=== PATIENT | female | born 1955 | race Caucasian/White ===

== ENCOUNTER → 2016-10-01 | Outpatient (CLI) | payer OTHER ==
[~2016-10-01] MED LIST: ASPI81TA28 PO; ATOR10TA88 PO; BCTCR/30 EXT; BIOTCAP2 PO; CALC-354 PO; CALC600T9 PO; CHOL100027 PO; CHOL20007 PO; CYAN10004 PO; CYAN10005 PO; DULA0.5I SC; FAMO40TA6 PO; GLIM2TAB2 PO; GLIM4TAB2 PO; INSUINJ4 SQ; LOSA100T2 PO; LOSARTAN/HCTZ PO; METF500T5 PO; METO25TA56 PO; MULT-506 PO; MULTTAB PO; POTA99TA PO; POTASSIUM OTC PO; PYRI50TA77 PO; ROSI1TAB PO; SIMV-151 PO
[2016-10-01 09:51] LABS: ALT/SGPT 41 U/L (12-78); BLOOD UREA NITROGEN 17 mg/dl (7-18); BUN/CREATININE RATIO 15.3 (10-20); CALCIUM 8.8 mg/dl (8.5-10.1); CARBON DIOXIDE 25 mmol/L (21-32); CHLORIDE 106 mmol/L (98-107); CHOLESTEROL 147 mg/dl (0-200); GLUCOSE 131 mg/dl (70-99); POTASSIUM 3.9 mmol/L (3.5-5.1); SODIUM 140 mmol/L (136-145); TRIGLYCERIDES 87 mg/dl (0-150); URIC ACID 5.3 mg/dl (2.6-7.2); VERY LOW DENSITY LIPOPROT CALC 17 mg/dl
[2016-10-01 09:57] LABS: ESTIMATED AVERAGE GLUCOSE 194 mg/dl; HA1C FLAG Normal (Normal)
[2016-10-01 09:59] LABS: ALB/GLOB RATIO 0.9 (0.9-2); ALKALINE PHOSPHATASE 54 U/L (45-117); AST/SGOT 35 U/L (15-37); CHOLESTEROL/HDL RATIO 2.8; HDL CHOLESTEROL 53 mg/dl; LDL CHOLESTEROL CALCULATED 77 mg/dl; PHOSPHORUS 2.9 mg/dl (2.5-4.9)
== END | disposition home or self-care (01) ==
LOC: C.LAB 07:10
PROVIDERS: ATTEND Family Medicine
DX: E11.9 Type 2 diabetes mellitus without complications (principal)

== ENCOUNTER → 2016-10-28 | Outpatient (CLI) | payer OTHER ==
--- NOTE | 2016-10-28 17:05 | ECHOCARDIOGRAM REPORT ---
*NOTICE TO RECEIVING REPUBLICAN AGENCY This information is strictly Confidential and protected under [place] law. [place] law prohibits you from making any further disclosure of this information unless further disclosure is expressly permitted by the written consent of the person to whom it pertains or is authorized by law. A general authorization for the release of medical or other information is not sufficient for this purpose. Hospital accepts no responsibility if the information is made available to any other person, INCLUDING THE PATIENT. Interpretation Summary * Name: MUSHTAQ HOGAN Study Date: 10/28/2016 12:36 PM * Patient Location: [facility] HR: 74 * : 1955 (M/d/yyyy) Gender: Female Height: 66 in * Age: 61 yrs Ethnicity: CA Weight: 176 lb * Ordering Physician: EMY MACHUCA MD * Performed By: Rochelle Mcgraw RCS * * Reason For Study: AORTIC STENOSIS * BSA: 1.9 m2 * -- Conclusions -- * Left ventricular systolic function is normal. * Mild valvular aortic stenosis. * Cannot exlude mitral vegetation, however, there is no change in the valve appearance from the prior echocardiogram * There is mild mitral regurgitation. * There is moderate mitral annular calcification. * Diastolic dysfunction, Grade II (pseudonormalization pattern). * Compared directly to an echocardiogram from 12/2015, there is no change Procedure Details * A complete two-dimensional transthoracic echocardiogram was performed (2D, M-mode, Doppler and color flow Doppler). Left Ventricle * There is normal left ventricular wall thickness. * Ejection Fraction = 55-60%. * Left ventricular systolic function is normal. * The left ventricular wall motion is normal. Right Ventricle * The right ventricle is grossly normal size. * The right ventricular systolic function is normal. Atria * The left atrial size is normal. Mitral Valve * Calcified mitral apparatus. * There is moderate mitral annular calcification. * Cannot exlude mitral vegetation, however, there is no change in the valve appearance from the prior echocardiogram * There is mild mitral regurgitation. Tricuspid Valve * The tricuspid valve is not well visualized, but is grossly normal. * There is mild tricuspid regurgitation. Aortic Valve * Mild valvular aortic stenosis. Pericardium/Pleural * There is no pericardial effusion. Left Ventricular Diastolic Function * Diastolic dysfunction, Grade II (pseudonormalization pattern). MMode 2D Measurements and Calculations IVSd 1.4 cm IVSs 1.6 cm LVIDd 4.0 cm LVIDs 3.1 cm LVPWd 1.1 cm LVPWs 1.6 cm IVS/LVPW 1.2 FS 22.7 % EDV(Teich) 71.9 ml ESV(Teich) 38.7 ml EF(Teich) 46.1 % EDV(cubed) 66.2 ml ESV(cubed) 30.6 ml EF(cubed) 53.8 % % IVS thick 15.0 % % LVPW thick 42.9 % LV mass(C)d 175.0 grams LV mass(C)dI 92.4 grams/m\S\2 LV mass(C)s 180.0 grams LV mass(C)sI 95.0 grams/m\S\2 SV(Teich) 33.2 ml SI(Teich) 17.5 ml/m\S\2 SV(cubed) 35.6 ml SI(cubed) 18.8 ml/m\S\2 Ao root diam 3.5 cm Ao root area 9.4 cm\S\2 LA dimension 3.9 cm LA/Ao 1.1 LVOT diam 2.0 cm LVOT area 3.3 cm\S\2 LVAd ap4 26.9 cm\S\2 LVLd ap4 7.8 cm EDV(MOD-sp4) 79.5 ml EDV(sp4-el) 79.1 ml LVAs ap4 18.0 cm\S\2 LVLs ap4 6.5 cm ESV(MOD-sp4) 41.5 ml ESV(sp4-el) 42.3 ml EF(MOD-sp4) 47.7 % EF(sp4-el) 46.5 % LVAd ap2 32.9 cm\S\2 LVLd ap2 7.4 cm EDV(MOD-sp2) 117.4 ml EDV(sp2-el) 124.4 ml LVAs ap2 22.6 cm\S\2 LVLs ap2 6.9 cm ESV(MOD-sp2) 61.7 ml ESV(sp2-el) 62.8 ml EF(MOD-sp2) 47.4 % EF(sp2-el) 49.5 % LVLd %diff -5.15 % EDV(MOD-bp) 98.3 ml LVLs %diff 5.5 % ESV(MOD-bp) 51.1 ml EF(MOD-bp) 48.1 % SV(MOD-sp4) 38.0 ml SI(MOD-sp4) 20.0 ml/m\S\2 SV(MOD-sp2) 55.6 ml SI(MOD-sp2) 29.4 ml/m\S\2 SV(MOD-bp) 47.3 ml SI(MOD-bp) 24.9 ml/m\S\2 SV(sp4-el) 36.7 ml SI(sp4-el) 19.4 ml/m\S\2 SV(sp2-el) 61.6 ml SI(sp2-el) 32.5 ml/m\S\2 Doppler Measurements and Calculations MV E max chandu 125.6 cm/sec MV A max chandu 102.8 cm/sec MV E/A 1.2 MV P1/2t max chandu 142.5 cm/sec MV P1/2t 85.0 msec MVA(P1/2t) 2.6 cm\S\2 MV dec slope 491.1 cm/sec\S\2 MV dec time 0.20 sec Ao V2 max 206.3 cm/sec Ao max PG 17.0 mmHg Ao max PG (full) 14.0 mmHg Ao V2 mean 163.0 cm/sec Ao mean PG 11.4 mmHg Ao V2 VTI 57.4 cm DIANE(V,A) 1.4 cm\S\2 DIANE(V,D) 1.4 cm\S\2 LV V1 max PG 3.0 mmHg LV V1 max 86.8 cm/sec SV(Ao) 538.6 ml SI(Ao) 284.3 ml/m\S\2 PA V2 max 109.9 cm/sec PA max PG 4.8 mmHg TR max chandu 262.0 cm/sec
== END | disposition home or self-care (01) ==
LOC: C.CPL 12:33
PROVIDERS: ATTEND Family Medicine
DX: I35.0 Nonrheumatic aortic (valve) stenosis (principal)

== ENCOUNTER → 2017-01-18 | Outpatient (CLI) | payer OTHER ==
[~2017-01-18] MED LIST changes: +ATOR10TA82 PO; -ATOR10TA88 PO
[2017-01-18 09:32] LABS: MEAN CORPUSCULAR HGB CONC 30.3 g/dl (32-36)
[2017-01-18 09:49] LABS: ALT/SGPT 44 U/L (12-78); BLOOD UREA NITROGEN 16 mg/dl (7-18); BUN/CREATININE RATIO 16.1 (10-20); CARBON DIOXIDE 26 mmol/L (21-32); CHLORIDE 106 mmol/L (98-107); CHOLESTEROL 163 mg/dl (0-200); GLUCOSE 90 mg/dl (70-99); PHOSPHORUS 3.3 mg/dl (2.5-4.9); POTASSIUM 3.8 mmol/L (3.5-5.1); SODIUM 140 mmol/L (136-145); TRIGLYCERIDES 79 mg/dl (0-150); URIC ACID 5.7 mg/dl (2.6-7.2); VERY LOW DENSITY LIPOPROT CALC 16 mg/dl
[2017-01-18 09:56] LABS: ALB/GLOB RATIO 0.9 (0.9-2); ALKALINE PHOSPHATASE 50 U/L (45-117); AST/SGOT 40 U/L (15-37); HDL CHOLESTEROL 54 mg/dl; LDL CHOLESTEROL CALCULATED 93 mg/dl; THYROID STIMULATING HORMONE 0.128 uIu/ml (0.300-4.500)
[2017-01-18 10:01] LABS: CALCIUM 9.6 mg/dl (8.5-10.1)
[2017-01-18 10:03] LABS: MEAN CELL VOLUME 80.8 fL (80-100); MEAN CORPUSCULAR HEMOGLOBIN 24.5 pg (25-34); MEAN PLATELET VOLUME 12.2 fL (7.4-10.4); PLATELET COUNT 126 K/uL (130-400); RED BLOOD COUNT 4.21 M/uL (4.2-5.4); WHITE BLOOD COUNT 4.69 K/uL (4.8-10.8)
[2017-01-18 10:04] LABS: BASO % 0.2 %; BASO ABS # 0.01 K/uL (0-0.2); COMPLETE YES; EOS % 5.1 %; IG% 0.2 %; LYMPH ABS # 1.36 K/uL (1.2-3.4); MONO % 7.5 %; PLT ESTIMATE DECREASED
[2017-01-18 10:21] LABS: ESTIMATED AVERAGE GLUCOSE 183 mg/dl; HA1C FLAG Normal (Normal)
[2017-01-19 09:50] LABS: C-REACTIVE PROT HIGHSEN 2.1 MG/L
== END | disposition home or self-care (01) ==
LOC: C.LAB 06:56
PROVIDERS: ATTEND Family Medicine
DX: R73.09 Other abnormal glucose (principal); E55.9 Vitamin D deficiency, unspecified; D51.9 Vitamin B12 deficiency anemia, unspecified

== ENCOUNTER → 2017-02-02 | Day surgery (SDC) | payer OTHER ==
[2017-01-19 13:22] VITALS: Ht 167.6 cm; Wt 75.5 kg
[~2017-02-02] VITALS: Ht 167.6 cm; Wt 75.5 kg
[~2017-02-02] MED LIST changes: -CALC-354 PO; -CHOL100027 PO; -CYAN10004 PO; -GLIM2TAB2 PO; +LIDOCAINE HCL 2% 2 ML VIAL (20MG/ML) ONE; -LOSARTAN/HCTZ PO; -MULTTAB PO; -POTASSIUM OTC PO; +PROPOFOL IV EMULSION 10 MG/ML 20 ML VIAL IV ONE; -PYRI50TA77 PO; -ROSI1TAB PO; -SIMV-151 PO; +SODIUM CHLORIDE 0.9% 500ML 500 ML IV ONE
--- NOTE | 2017-02-02 09:33 | Endo History and Physical ---
History & Physical Date of Service: Feb 02, 2017. Chief Complaint: Screening Referring Physician: Jarrod Borges History of Present Illness 61 yo CF who presents for screening colonoscopy. Past Surgical History Hx Cardiac Surgery: No Hx Internal Defibrillator: No Hx Pacemaker: No Hx Abdominal Surgery: Yes ( X2, STOMACH NODULES REMOVAL, PARTIAL HYSTER) Hx of Implantable Prosthesis: No Hx Post-Op Nausea and Vomiting: No Hx Cancer Surgery: Yes (MELANOMA REMOVAL AND SCAR REVISION) Hx Thoracic Surgery: No Hx Orthopedic: Yes (LT FOOT NEUROMA REMOVAL X3) Hx Urinary Tract Surgery: No Family History Polyp Social History Smoking Status: Former Smoker Hx Substance Use: No Hx Alcohol Use: No Allergies Coded Allergies: Bacitracin (Verified Allergy, Unknown, REDNESS/RASH, 01/19/17) Neomycin (Verified Allergy, Unknown, REDNESS AND RASH, 01/19/17) Current Medications Reported Home Medications Medications Dose Route/Sig Max Daily Dose Days Date Category Dose Instructions Multivitamin (Multivitamins) Tab 1 Tab PO QAM 01/19/17 Reported Calcium + D (Calcium Carbonate-Vitamin D) 1 Tab Tab 1 Tab PO BID 01/19/17 Reported Vitamin B-12 (Cyanocobalamin) 1,000 Mcg Tab 1,000 Mcg PO QAM 01/19/17 Reported Vitamin D3 (Cholecalciferol) 2,000 Unit Tab 1 Tab PO QAM 01/19/17 Reported Potassium 99 Mg Tab 1 Tab PO QAM 01/19/17 Reported Bactroban 2% (Mupirocin) 30 Gm Cr 1 Appln EXT UD 01/19/17 Reported Lopressor (Metoprolol Tartrate) 25 Mg Tab 25 Mg PO BID 01/19/17 Reported Lipitor (Atorvastatin Calcium) 10 Mg Tab 10 Mg PO 2XWK 01/19/17 Reported WEDNESDAY, WEDNESDAY Hyzaar (Losartan Potassium & Hydrochlo) 1 Tab Tab 0.5 Tab PO QAM 01/19/17 Reported 100/12.5MG TAB Trulicity (Dulaglutide) 1.5 Mg/0.5 Ml Inj 0.75 Mg SC WK 01/19/17 Reported WEDNESDAY Glimepiride 4 Mg Tab 1 Tab PO DAILY 01/19/17 Reported Biotin 5000 (Biotin) 5 Mg Cap 1 Tab PO QAM 05/16/15 Reported Aspirin Ec (Aspirin) 81 Mg Tab 81 Mg PO QAM 05/16/15 Reported Pepcid (Famotidine) 40 Mg Tab 40 Mg PO QPM 05/16/15 Reported Glucophage Er (Metformin HCl) 500 Mg Tab 1,000 Units PO BID 05/16/15 Reported Lantus Solostar Pen (Insulin Glargine) 100 Unit/ Inj 38 Units SQ AMPM 05/16/15 Reported Vital Signs Weight (Kilograms): 75.45 Height (Feet): 5 Height (Inches): 6 Date Time Temp Pulse Resp B/P (MAP) Pulse Ox O2 Delivery O2 Flow Rate FiO2 02/02/17 09:16 36.7 79 18 130/64 98 Room Air Physical Exam General Appearance: WD/WN, no apparent distress Respiratory/Chest: Auscultation: breath sounds normal Cardiovascular: Heart Auscultation: RRR Abdomen: Bowel Sounds: normal Inspection & Palpation: soft, non-distended, no tenderness, guarding & rebound Assessment and Plan Assessment: 61 yo CF who presents for screening colonoscopy. Plan: Proceed with colonoscopy.
--- NOTE | 2017-02-02 10:08 | GI REPORT ---
Procedure Date: 02/02/2017 9:25 AM Procedure: Colonoscopy Indications: Screening for colorectal malignant neoplasm Medicines: Monitored Anesthesia Care Complications: No immediate complications. Estimated Blood Loss: Estimated blood loss: none. Procedure: Pre-Anesthesia Assessment: - Prior to the procedure, a History and Physical was performed, and patient medications and allergies were reviewed. The patient's tolerance of previous anesthesia was also reviewed. The risks and benefits of the procedure and the sedation options and risks were discussed with the patient. All questions were answered, and informed consent was obtained. Prior Anticoagulants: The patient has taken aspirin, last dose was 1 day prior to procedure. ASA Grade Assessment: III - A patient with severe systemic disease. After reviewing the risks and benefits, the patient was deemed in satisfactory condition to undergo the procedure. After I obtained informed consent, the scope was passed under direct vision. Throughout the procedure, the patient's blood pressure, pulse, and oxygen saturations were monitored continuously. The Scope was introduced through the anus and advanced to the terminal ileum. The colonoscopy was performed without difficulty. The patient tolerated the procedure well. The quality of the bowel preparation was good. The terminal ileum, ileocecal valve, appendiceal orifice, and rectum were photographed. Findings: Scattered small-mouthed diverticula were found in the entire colon. Non-bleeding internal hemorrhoids were found during retroflexion. The hemorrhoids were small. Impression: - Diverticulosis in the entire examined colon. - Non-bleeding internal hemorrhoids. - No specimens collected. Recommendation: - Resume previous diet. - Continue present medications. - Repeat colonoscopy in 10 years for surveillance. - Return to primary care physician as previously scheduled. Jonathan Burger DO 02/02/2017 10:07:35 AM This report has been signed electronically. Note Initiated On: 02/02/2017 9:25 AM I attest to the content of the Intraoperative Record and orders documented therein, exceptions below
--- NOTE | 2017-02-02 10:08 | Discharge Instructions ---
Endoscopy Patient Instructions Date / Procedure(s) Performed Feb 02, 2017. Colonoscopy Allergy Information Coded Allergies: Bacitracin (Verified Allergy, Unknown, REDNESS/RASH, 01/19/17) Neomycin (Verified Allergy, Unknown, REDNESS AND RASH, 01/19/17) Discharge Date / Findings Feb 02, 2017. Diverticulosis Internal hemorrhoids Medication Instructions Stopped Medication(s): Metformin, Glimiperide OK to resume all medications today as prescribed Medications Dose Route/Sig Max Daily Dose Days Date Category Dose Instructions Multivitamin (Multivitamins) Tab 1 Tab PO QAM 01/19/17 Reported Calcium + D (Calcium Carbonate-Vitamin D) 1 Tab Tab 1 Tab PO BID 01/19/17 Reported Vitamin B-12 (Cyanocobalamin) 1,000 Mcg Tab 1,000 Mcg PO QAM 01/19/17 Reported Vitamin D3 (Cholecalciferol) 2,000 Unit Tab 1 Tab PO QAM 01/19/17 Reported Potassium 99 Mg Tab 1 Tab PO QAM 01/19/17 Reported Bactroban 2% (Mupirocin) 30 Gm Cr 1 Appln EXT UD 01/19/17 Reported Lopressor (Metoprolol Tartrate) 25 Mg Tab 25 Mg PO BID 01/19/17 Reported Lipitor (Atorvastatin Calcium) 10 Mg Tab 10 Mg PO 2XWK 01/19/17 Reported WEDNESDAY, WEDNESDAY Hyzaar (Losartan Potassium & Hydrochlo) 1 Tab Tab 0.5 Tab PO QAM 01/19/17 Reported 100/12.5MG TAB Trulicity (Dulaglutide) 1.5 Mg/0.5 Ml Inj 0.75 Mg SC WK 01/19/17 Reported WEDNESDAY Glimepiride 4 Mg Tab 1 Tab PO DAILY 01/19/17 Reported Biotin 5000 (Biotin) 5 Mg Cap 1 Tab PO QAM 05/16/15 Reported Aspirin Ec (Aspirin) 81 Mg Tab 81 Mg PO QAM 05/16/15 Reported Pepcid (Famotidine) 40 Mg Tab 40 Mg PO QPM 05/16/15 Reported Glucophage Er (Metformin HCl) 500 Mg Tab 1,000 Units PO BID 05/16/15 Reported Lantus Solostar Pen (Insulin Glargine) 100 Unit/ Inj 38 Units SQ AMPM 05/16/15 Reported Provider Instructions Activity Restrictions - No exercising or heavy lifting for 24 hours. - Do not drink alcohol the day of the procedure. - Do not drive a car or operate machinery until the day after the procedure. - Do not make any important decisions or sign important papers in 24 hours after the procedure. Following Day: - Return to full activity which may include returning to work/school. Diet Start your diet with liquids and light foods (jello, soup, juice, toast). Then eat your usual diet if not nauseated. Treatment For Common After Affects For mild abdominal pain, bloating, or excessive gas: - Rest - Eat lightly - Lie on right side Follow-Up Information Follow-up with Jarrod Borges as scheduled Anesthesia Information What You Should Know You have had a procedure that required some medicine to reduce anxiety and discomfort. This treatment is called moderate sedation. After receiving the treatment, you may be sleepy, but you will be able to breathe on your own. The effects of the treatment may last for several hours. Follow these instructions along with Activity/Diet recommendations noted above: * Do NOT do anything where dizziness or clumsiness would be dangerous. * Rest quietly at home today, then you can be up and about tomorrow. * Have a responsible person stay with you the rest of today. * You may have had an I.V. today. If so, you may take the dressing off later today. Recommendations Call your doctor if: * Trouble breathing * Continuous vomiting for more than 24 hours * Temperature above 101 degrees * Severe abdominal pain or bloating * Pain not relieved by pain medicine ordered * There is increased drainage or redness from any incision * A large amount of rectal bleeding greater than 2-3 tablespoons. (If you had a polyp/s removed or have hemorrhoids, a small amount of blood - from the rectum is to be expected.) * You have any unanswered questions or concerns. IN THE EVENT OF A SERIOUS EMERGENCY, GO TO THE NEAREST EMERGENCY ROOM Your discharge instructions were prepared by provider Jonathan Burger. Patient Instructions Signature Page Audrey Regalado Patient (or Guardian) Signature/Date: I have read and understand the instructions given to me by my caregivers. Caregiver/RN/Doctor Signature/Date: The above-named patient and/or guardian has received patient instructions on this date. + Original Patient Signature Page (only) stays with chart. Please make copy for patient.
--- NOTE | 2017-02-02 10:14 | Anesthesiology Progress Note ---
Anesthesia Post Op Note Date & Time Feb 02, 2017 at 10:14 Vital Signs Pain Intensity: 0 Vital Signs Past 12 Hours Date Time Temp Pulse Resp B/P (MAP) Pulse Ox O2 Delivery O2 Flow Rate FiO2 02/02/17 10:01 80 18 117/50 98 Room Air 02/02/17 09:16 36.7 79 18 130/64 98 Room Air Notes Mental Status: alert / awake / arousable, participated in evaluation Pt Amnestic to Procedure: Yes Nausea / Vomiting: adequately controlled Pain: adequately controlled Airway Patency, RR, SpO2: stable & adequate BP & HR: stable & adequate Hydration State: stable & adequate Anesthetic Complications: no major complications apparent
[2017-02-02 10:31] VITALS: BP 120/68; PULSE 70; O2SAT 95
== END | disposition home or self-care (01) ==
LOC: C.GI 08:45
PROVIDERS: ATTEND Internal Medicine
DX: Z12.11 Encounter for screening for malignant neoplasm of colon (principal); K57.90 Diverticulosis of intestine, part unspecified, without perforation or abscess without bleeding; K64.8 Other hemorrhoids; E11.9 Type 2 diabetes mellitus without complications; I10 Essential (primary) hypertension; Z98.890 Other specified postprocedural states; Z90.711 Acquired absence of uterus with remaining cervical stump; Z87.891 Personal history of nicotine dependence; Z68.27 Body mass index [BMI] 27.0-27.9, adult; Z88.1 Allergy status to other antibiotic agents; Z79.4 Long term (current) use of insulin; Z79.82 Long term (current) use of aspirin

== ENCOUNTER → 2017-04-28 | Outpatient (CLI) | payer OTHER ==
[~2017-04-28] MED LIST changes: -ATOR10TA82 PO; +ATOR10TA88 PO; -LIDOCAINE HCL 2% 2 ML VIAL (20MG/ML) ONE; -PROPOFOL IV EMULSION 10 MG/ML 20 ML VIAL IV ONE; -SODIUM CHLORIDE 0.9% 500ML 500 ML IV ONE
[2017-04-28 10:03] LABS: ALT/SGPT 39 U/L (12-78); AST/SGOT 38 U/L (15-37); BLOOD UREA NITROGEN 15 mg/dl (7-18); BUN/CREATININE RATIO 13.5 (10-20); CALCIUM 9.3 mg/dl (8.5-10.1); CARBON DIOXIDE 27 mmol/L (21-32); CHLORIDE 109 mmol/L (98-107); CHOLESTEROL 161 mg/dl (0-200); GLUCOSE 80 mg/dl (70-99); POTASSIUM 3.9 mmol/L (3.5-5.1); SODIUM 142 mmol/L (136-145); TRIGLYCERIDES 77 mg/dl (0-150); URIC ACID 6.2 mg/dl (2.6-7.2); VERY LOW DENSITY LIPOPROT CALC 15 mg/dl
[2017-04-28 10:12] LABS: ALB/GLOB RATIO 0.8 (0.9-2); ALKALINE PHOSPHATASE 54 U/L (45-117); CHOLESTEROL/HDL RATIO 2.8; HDL CHOLESTEROL 57 mg/dl; LDL CHOLESTEROL CALCULATED 89 mg/dl; TOTAL IRON BINDING CAPACITY 473 mcg/dl (250-450)
[2017-04-28 10:26] LABS: HEMATOCRIT 33.8 % (37-47); MEAN CELL VOLUME 80.1 fL (80-100); MEAN CORPUSCULAR HEMOGLOBIN 22.7 pg (25-34); MEAN CORPUSCULAR HGB CONC 28.4 g/dl (32-36); MEAN PLATELET VOLUME 12.3 fL (7.4-10.4); PLATELET COUNT 114 K/uL (130-400); RED BLOOD COUNT 4.22 M/uL (4.2-5.4); WHITE BLOOD COUNT 4.42 K/uL (4.8-10.8)
[2017-04-28 10:27] LABS: BASO % 0.5 %; BASO ABS # 0.02 K/uL (0-0.2); COMPLETE YES; ECHINOCYTES 1+; EOS % 2.7 %; IG% 0.2 %; LYMPH % 26.9 %; LYMPH ABS # 1.19 K/uL (1.2-3.4); MONO % 8.6 %; NEUT % 61.1 %; PLT ESTIMATE DECREASED
[2017-04-28 13:35] LABS: ESTIMATED AVERAGE GLUCOSE 180 mg/dl; HA1C FLAG Normal (Normal)
== END | disposition home or self-care (01) ==
LOC: C.LAB 07:04
PROVIDERS: ATTEND Family Medicine
DX: R73.09 Other abnormal glucose (principal); E55.9 Vitamin D deficiency, unspecified; D51.9 Vitamin B12 deficiency anemia, unspecified; E78.9 Disorder of lipoprotein metabolism, unspecified; R53.83 Other fatigue

== ENCOUNTER → 2017-07-28 | Outpatient (CLI) | payer OTHER ==
[~2017-07-28] MED LIST changes: +ATOR10TA82 PO; -ATOR10TA88 PO
[2017-07-28 09:35] LABS: URINE APPEARANCE CLEAR (CLEAR); URINE BILIRUBIN NEG (NEG); URINE COLOR YELLOW; URINE NITRITE NEG (NEG); URINE PH 5.5 (4.5-7.5); UROBILINOGEN NEG (NEG)
[2017-07-28 09:41] LABS: MANUAL MICROSCOPIC REQUIRED? NO; REVIEW REQ? NO
[2017-07-28 09:53] LABS: ESTIMATED AVERAGE GLUCOSE 200 mg/dl; HA1C FLAG Normal (Normal)
[2017-07-28 10:09] LABS: ALT/SGPT 43 U/L (12-78); AST/SGOT 45 U/L (15-37); BLOOD UREA NITROGEN 16 mg/dl (7-18); BUN/CREATININE RATIO 14.8 (10-20); CALCIUM 9.4 mg/dl (8.5-10.1); CARBON DIOXIDE 27 mmol/L (21-32); CHLORIDE 106 mmol/L (98-107); CHOLESTEROL 179 mg/dl (0-200); CREATININE 1.08 mg/dl (0.60-1.20); GLUCOSE 115 mg/dl (70-99); SODIUM 138 mmol/L (136-145); TRIGLYCERIDES 67 mg/dl (0-150); URIC ACID 6.1 mg/dl (2.6-7.2); VERY LOW DENSITY LIPOPROT CALC 13 mg/dl
[2017-07-28 10:20] LABS: ALB/GLOB RATIO 0.8 (0.9-2); ALKALINE PHOSPHATASE 64 U/L (45-117); CHOLESTEROL/HDL RATIO 2.9; HDL CHOLESTEROL 62 mg/dl; LDL CHOLESTEROL CALCULATED 104 mg/dl; THYROID STIMULATING HORMONE 0.971 uIu/ml (0.300-4.500); TOTAL IRON BINDING CAPACITY 465 mcg/dl (250-450)
[2017-07-28 10:28] LABS: HEMATOCRIT 31.2 % (37-47); MEAN CELL VOLUME 78.2 fL (80-100); MEAN CORPUSCULAR HEMOGLOBIN 23.1 pg (25-34); MEAN CORPUSCULAR HGB CONC 29.5 g/dl (32-36); PLATELET COUNT 98 K/uL (130-400); RED BLOOD COUNT 3.99 M/uL (4.2-5.4)
[2017-07-28 10:36] LABS: ACANTHOCYTES 1+; BASO % 0.2 %; BASO ABS # 0.01 K/uL (0-0.2); COMPLETE YES; EOS % 2.1 %; IG% 0.2 %; LARGE PLATELETS 1+; LYMPH % 24.9 %; LYMPH ABS # 1.07 K/uL (1.2-3.4); NEUT % 65.6 %; OVALOCYTES 1+
== END | disposition home or self-care (01) ==
LOC: C.LAB 07:16
PROVIDERS: ATTEND Family Medicine
DX: R73.09 Other abnormal glucose (principal); E55.9 Vitamin D deficiency, unspecified; D51.9 Vitamin B12 deficiency anemia, unspecified; E78.9 Disorder of lipoprotein metabolism, unspecified; R53.83 Other fatigue

== ENCOUNTER → 2017-09-22 | Outpatient (CLI) | payer OTHER ==
[~2017-09-22] MED LIST changes: -ASPI81TA28 PO; -FAMO40TA6 PO; +INSDGIPEN SC; -INSUINJ4 SQ
--- NOTE | 2017-09-22 15:40 | MAMMOGRAPHY REPORT ---
BILATERAL DIGITAL SCREENING MAMMOGRAM TOMOSYNTHESIS WITH CAD: 09/22/2017 CLINICAL HISTORY: Routine screening. Patient has no complaints. TECHNIQUE: Breast tomosynthesis in addition to standard 2D mammography was performed. Current study was also evaluated with a Computer Aided Detection (CAD) system. COMPARISON: Comparison is made to exams dated: 07/13/2016 mammogram, 07/11/2015 mammogram, 4 mammogram, 06/16/2013 mammogram, 06/09/2012 mammogram, and 06/08/2011 mammogram - [facility]. BREAST COMPOSITION: There are scattered areas of fibroglandular density in both breasts. FINDINGS: No suspicious masses, calcifications, or areas of architectural distortion are noted in ei ther breast. There has been no significant interval change compared to prior exams. IMPRESSION: ACR BI-RADS CATEGORY 1: NEGATIVE There is no mammographic evidence of malignancy. A 1 year screening mammogram is recommended. The pa tient will receive written notification of the results. Approximately 10% of breast cancers are not detected with mammography. A negative mammographic report should not delay biopsy if a clinically suggestive mass is present. Fernanda Schneider M.D. ah/:09/22/2017 12:46:21 Biomedical Electronics Technician: Cristela MONTAÑO(Taryn)(M), [facility] letter sent: Normal 1/2 BI-RADS Code: ACR BI-RADS Category 1: Negative
== END | disposition home or self-care (01) ==
LOC: C.MAMM 11:33
PROVIDERS: ATTEND Family Medicine
DX: Z12.31 Encounter for screening mammogram for malignant neoplasm of breast (principal)

== ENCOUNTER → 2017-11-03 | Outpatient (CLI) | payer OTHER ==
[2017-11-03 09:26] LABS: MEAN CORPUSCULAR HGB CONC 31.4 g/dl (32-36)
[2017-11-03 09:39] LABS: ALBUMIN 3.6 gm/dl (3.4-5.0); ALT/SGPT 42 U/L (12-78); AST/SGOT 41 U/L (15-37); BLOOD UREA NITROGEN 15 mg/dl (7-18); CALCIUM 9.5 mg/dl (8.5-10.1); CARBON DIOXIDE 28 mmol/L (21-32); CHOLESTEROL 194 mg/dl (0-200); CREATININE 1.06 mg/dl (0.60-1.20); GLUCOSE 81 mg/dl (70-99); POTASSIUM 3.8 mmol/L (3.5-5.1); SODIUM 139 mmol/L (136-145); URIC ACID 5.5 mg/dl (2.6-7.2)
[2017-11-03 09:42] LABS: HEMATOCRIT 35.3 % (37-47); HEMOGLOBIN 11.1 g/dL (12.0-16.0); HEMOGLOBIN A1C 8.4 % (4.5-5.6); MEAN CELL VOLUME 81.7 fL (80-100); MEAN CORPUSCULAR HEMOGLOBIN 25.7 pg (25-34); RED CELL DISTRIBUTION WIDTH CV 17.3 % (11.5-14.5); RED CELL DISTRIBUTION WIDTH SD 52.2 fL (36.4-46.3); WHITE BLOOD COUNT 4.54 K/uL (4.8-10.8)
[2017-11-03 09:48] LABS: ALKALINE PHOSPHATASE 65 U/L (45-117); LDL CHOLESTEROL CALCULATED 126 mg/dl; TOTAL PROTEIN 7.7 gm/dl (6.4-8.2); TRANSFERRIN 324 mg/dl (200-360)
[2017-11-03 09:57] LABS: PLATELET COUNT 97 K/uL (130-400)
[2017-11-03 09:58] LABS: BASO % 0.4 %; BASO ABS # 0.02 K/uL (0-0.2); EOS % 2.6 %; EOS ABS # 0.12 K/uL (0-0.5); LYMPH ABS # 1.18 K/uL (1.2-3.4); MONO % 8.4 %; MONO ABS # 0.38 K/uL (0.11-0.59); NEUT % 62.6 %; NEUT ABS # 2.84 K/uL (1.4-6.5)
== END | disposition home or self-care (01) ==
LOC: C.LAB 07:13
PROVIDERS: ATTEND Family Medicine
DX: E55.9 Vitamin D deficiency, unspecified (principal); E88.81 Metabolic syndrome and other insulin resistance; D51.9 Vitamin B12 deficiency anemia, unspecified; E78.9 Disorder of lipoprotein metabolism, unspecified; R53.83 Other fatigue

== ENCOUNTER → 2018-03-25 | Outpatient (CLI) | payer OTHER ==
[~2018-03-25] MED LIST changes: +LEVO50TA6 PO; +PRLSR20 PO
--- NOTE | 2018-03-25 08:23 | DIAGNOSTIC IMAGING REPORT ---
GI W/AIR SMALL BOWEL ROUTINE CLINICAL HISTORY: EPIGASTRIC PAINnausea COMPARISON STUDY: None FLUOROSCOPY TIME: 2.1 minutes. FINDINGS: Patient initiates swallowing function well. The esophagus is normal in course and caliber. Gastroesophageal junction is normal. Size and configuration stomach are normal. Duodenal bulb fills well. Duodenal sweep is unremarkable. Mucosal pattern and transit time throughout small bowel are unremarkable. Spot films the terminal ileum are within normal limits. IMPRESSION: Normal study The above report was generated using voice recognition software. It may contain grammatical, syntax or spelling errors. Electronically signed by: Garth Delong M.D. 03/25/2018 8:22 AM Dictated Date/Time: 03/25/2018 8:19 AM
[2018-03-25 09:31] LABS: HEMATOCRIT 35.5 % (37-47); HEMOGLOBIN 11.5 g/dL (12.0-16.0); MEAN CORPUSCULAR HEMOGLOBIN 28.2 pg (25-34); MEAN CORPUSCULAR HGB CONC 32.4 g/dl (32-36); RED CELL DISTRIBUTION WIDTH CV 14.7 % (11.5-14.5); RED CELL DISTRIBUTION WIDTH SD 46.9 fL (36.4-46.3)
[2018-03-25 10:31] LABS: PLATELET COUNT 91 K/uL (130-400)
[2018-03-25 10:32] LABS: BASO % 0.2 %; BASO ABS # 0.01 K/uL (0-0.2); EOS % 3.5 %; EOS ABS # 0.18 K/uL (0-0.5); IG# 0.01 K/uL (0.00-0.02); LYMPH % 21.7 %; LYMPH ABS # 1.13 K/uL (1.2-3.4); MONO % 7.7 %; NEUT % 66.7 %; NEUT ABS # 3.47 K/uL (1.4-6.5)
== END | disposition home or self-care (01) ==
LOC: C.RAD 07:11
PROVIDERS: ATTEND Family Medicine
DX: D69.6 Thrombocytopenia, unspecified (principal); D64.9 Anemia, unspecified; R10.13 Epigastric pain

== ENCOUNTER → 2018-04-21 | Outpatient (CLI) | payer OTHER ==
[~2018-04-21] MED LIST changes: -DULA0.5I SC; +FERR1TAB13 PO; +GLIM2TAB2 PO; -GLIM4TAB2 PO; -INSDGIPEN SC; +INSU100I23 SQ; -LOSA100T2 PO; +LOSA100T30 PO; +SITA100T3 PO
--- NOTE | 2018-04-21 08:30 | DIAGNOSTIC IMAGING REPORT ---
ABDOMEN LIMITED (US) HISTORY: 62 years-old Female SPLENOMEGALY COMPARISON: None available TECHNIQUE: Multiple real-time sonographic images of the upper abdomen were obtained assessing grayscale appearance and color flow FINDINGS: Spleen is enlarged, 15.1 cm in length. No focal splenic mass lesions. Echogenicity of the splenic parenchyma appears to be within normal limits. No perisplenic fluid collections. There is increased echogenicity of the liver which appears somewhat heterogeneous. No hepatic mass lesions or intrahepatic biliary ductal dilation. Additionally, there is suggested mild arterial nodularity of the liver with trace. Hepatic ascites. Mild gallbladder wall thickening, 5 mm without shadowing cholelithiasis. IMPRESSION: 1. Suggested cirrhotic liver disease with trace perihepatic ascites and splenomegaly, possibly reflecting stigmata of portal venous hypertension. 2. Nonspecific mild gallbladder wall thickening without cholelithiasis identified. The above report was generated using voice recognition software. It may contain grammatical, syntax or spelling errors. Electronically signed by: Patel Fraire M.D. 04/21/2018 8:28 AM Dictated Date/Time: 04/21/2018 8:26 AM
== END | disposition home or self-care (01) ==
LOC: C.ULTR 07:56
PROVIDERS: ATTEND Internal Medicine Hematology & Oncology
DX: D69.6 Thrombocytopenia, unspecified (principal)

== ENCOUNTER → 2018-04-22 | Day surgery (SDC) | payer OTHER ==
[2018-04-19 09:21] VITALS: BMI 27.0
[~2018-04-22] VITALS: Ht 167.6 cm; Wt 77.3 kg
[~2018-04-22] MED LIST changes: +LIDOCAINE HCL 2% 2 ML VIAL (20MG/ML) ONE; +PROPOFOL IV EMULSION 10 MG/ML 20 ML VIAL ONE; +SODIUM CHLORIDE 0.9% 500ML 500 ML IV ONE
[2018-04-22 08:55] VITALS: Ht 167.6 cm; Wt 77.3 kg
--- NOTE | 2018-04-22 09:31 | Endo History and Physical ---
History & Physical Date of Service: Apr 22, 2018. Chief Complaint: ANEMIA Referring Physician: DR. MACHUCA History of Present Illness 62 yo CF who presents for EGD secondary to anemia. Past Surgical History Hx Cardiac Surgery: No Hx Internal Defibrillator: No Hx Pacemaker: No Hx Abdominal Surgery: Yes ( X2, STOMACH NODULES REMOVAL, PARTIAL HYSTER) Hx Post-Op Nausea and Vomiting: No Hx Cancer Surgery: Yes (MELANOMA REMOVAL AND SCAR REVISION, BASAL CELL REMOVED) Hx Thoracic Surgery: No Hx Orthopedic: Yes (LT FOOT NEUROMA REMOVAL X3) Hx Urinary Tract Surgery: No Family History Polyp Social History Smoking Status: Former Smoker Hx Substance Use: No Hx Alcohol Use: No Allergies Coded Allergies: Bacitracin (Verified Allergy, Unknown, REDNESS/RASH, 04/19/18) Neomycin (Verified Allergy, Unknown, REDNESS AND RASH, 04/19/18) Current Medications Reported Home Medications Medications Dose Route/Sig Max Daily Dose Days Date Category Dose Instructions Kp Ferrous Sulfate (Ferrous Sulfate) 325 Mg Tab 1 Tab PO DAILY 04/19/18 Reported Januvia (Sitagliptin Phosphate) 100 Mg Tab 100 Mg PO QAM 04/19/18 Reported Basaglar Kwikpen (Insulin Glargine) 100 Unit/Ml Inj 38 Units SQ BID 04/19/18 Reported Losartan Potassium/Hydroc (Losartan Potassium & Hydrochlo) 1 Tab Tab 1 Tab PO QAM 04/19/18 Reported 50/12.5MG Glimepiride 2 Mg Tab 1 Tab PO QAM 04/19/18 Reported Levothyroxine Sodium 50 Mcg Tab 50 Mcg PO DAILY 30 11/16/17 Reported Prilosec (Omeprazole) 20 Mg Capcr 40 Mg PO DAILY 11/16/17 Reported Multivitamin (Multivitamins) Tab 1 Tab PO QAM 01/19/17 Reported Calcium + D (Calcium Carbonate-Vitamin D) 1 Tab Tab 1 Tab PO BID 01/19/17 Reported Vitamin B-12 (Cyanocobalamin) 1,000 Mcg Tab 1,000 Mcg PO QAM 01/19/17 Reported Vitamin D3 (Cholecalciferol) 2,000 Unit Tab 1 Tab PO QAM 01/19/17 Reported Potassium 99 Mg Tab 1 Tab PO QAM 01/19/17 Reported Bactroban 2% (Mupirocin) 30 Gm Cr 1 Appln EXT UD PRN 01/19/17 Reported Lopressor (Metoprolol Tartrate) 25 Mg Tab 25 Mg PO BID 01/19/17 Reported Lipitor (Atorvastatin Calcium) 10 Mg Tab 10 Mg PO 2XWK 01/19/17 Reported WEDNESDAY, WEDNESDAY Biotin 5000 (Biotin) 5 Mg Cap 1 Tab PO QAM 05/16/15 Reported Glucophage Er (Metformin HCl) 500 Mg Tab 1,000 Units PO BID 05/16/15 Reported Vital Signs Weight (Kilograms): 77.27 Height (Feet): 5 Height (Inches): 6 Date Time Temp Pulse Resp B/P (MAP) Pulse Ox O2 Delivery O2 Flow Rate FiO2 04/22/18 08:56 36.8 66 18 144/65 (91) 98 Room Air Physical Exam General Appearance: WD/WN, no apparent distress Respiratory/Chest: Auscultation: breath sounds normal Cardiovascular: Heart Auscultation: RRR Abdomen: Bowel Sounds: normal Inspection & Palpation: soft, non-distended, no tenderness, guarding & rebound Assessment and Plan Assessment: 62 yo CF who presents for EGD secondary to anemia. Plan: Proceed with EGD.
--- NOTE | 2018-04-22 09:53 | GI REPORT ---
Patient Name: Audrey Regalado Procedure Date: 04/22/2018 9:37 AM Date of : 1955 Admit Type: Outpatient Age: 62 Gender: Female Attending MD: Jonathan Burger DO Procedure: Upper GI endoscopy Providers: Jonathan Burger DO Referring MD: Jarrod Borges Indications: Iron deficiency anemia Medicines: Monitored Anesthesia Care Complications: No immediate complications. Estimated Blood Loss: Estimated blood loss: none. Procedure: Pre-Anesthesia Assessment: - Prior to the procedure, a History and Physical was performed, and patient medications and allergies were reviewed. The patient's tolerance of previous anesthesia was also reviewed. The risks and benefits of the procedure and the sedation options and risks were discussed with the patient. All questions were answered, and informed consent was obtained. Prior Anticoagulants: The patient has taken no previous anticoagulant or antiplatelet agents. ASA Grade Assessment: II - A patient with mild systemic disease. After reviewing the risks and benefits, the patient was deemed in satisfactory condition to undergo the procedure. After obtaining informed consent, the endoscope was passed under direct vision. Throughout the procedure, the patient's blood pressure, pulse, and oxygen saturations were monitored continuously. The scope was introduced through the mouth, and advanced to the second part of duodenum. The upper GI endoscopy was accomplished without difficulty. The patient tolerated the procedure well. Findings: Non-severe esophagitis with no bleeding was found 28 cm from the incisors. Localized mild inflammation characterized by erythema was found in the gastric antrum. Biopsies were taken with a cold forceps for histology. The examined duodenum was normal. Impression: - Non-severe non-erosive esophagitis. - Gastritis. Biopsied. - Normal examined duodenum. Recommendation: - Resume previous diet. - Continue present medications. - Await pathology results. - Return to primary care physician as previously scheduled. Jonathan Burger DO 04/22/2018 9:53:11 AM This report has been signed electronically. Note Initiated On: 04/22/2018 9:37 AM Number of Addenda: 0 I attest to the content of the Intraoperative Record and orders documented therein, exceptions below {[id number]}
--- NOTE | 2018-04-22 09:53 | Discharge Instructions ---
Endoscopy Patient Instructions Date / Procedure(s) Performed Apr 22, 2018. EGD Allergy Information Coded Allergies: Bacitracin (Verified Allergy, Unknown, REDNESS/RASH, 04/19/18) Neomycin (Verified Allergy, Unknown, REDNESS AND RASH, 04/19/18) Discharge Date / Findings Apr 22, 2018. Esophagitis Gastritis s/p biopsies Medication Instructions OK to resume all medications today as prescribed Reported Home Medications Medications Dose Route/Sig Max Daily Dose Days Date Category Dose Instructions Kp Ferrous Sulfate (Ferrous Sulfate) 325 Mg Tab 1 Tab PO DAILY 04/19/18 Reported Januvia (Sitagliptin Phosphate) 100 Mg Tab 100 Mg PO QAM 04/19/18 Reported Basaglar Kwikpen (Insulin Glargine) 100 Unit/Ml Inj 38 Units SQ BID 04/19/18 Reported Losartan Potassium/Hydroc (Losartan Potassium & Hydrochlo) 1 Tab Tab 1 Tab PO QAM 04/19/18 Reported 50/12.5MG Glimepiride 2 Mg Tab 1 Tab PO QAM 04/19/18 Reported Levothyroxine Sodium 50 Mcg Tab 50 Mcg PO DAILY 30 11/16/17 Reported Prilosec (Omeprazole) 20 Mg Capcr 40 Mg PO DAILY 11/16/17 Reported Multivitamin (Multivitamins) Tab 1 Tab PO QAM 01/19/17 Reported Calcium + D (Calcium Carbonate-Vitamin D) 1 Tab Tab 1 Tab PO BID 01/19/17 Reported Vitamin B-12 (Cyanocobalamin) 1,000 Mcg Tab 1,000 Mcg PO QAM 01/19/17 Reported Vitamin D3 (Cholecalciferol) 2,000 Unit Tab 1 Tab PO QAM 01/19/17 Reported Potassium 99 Mg Tab 1 Tab PO QAM 01/19/17 Reported Bactroban 2% (Mupirocin) 30 Gm Cr 1 Appln EXT UD PRN 01/19/17 Reported Lopressor (Metoprolol Tartrate) 25 Mg Tab 25 Mg PO BID 01/19/17 Reported Lipitor (Atorvastatin Calcium) 10 Mg Tab 10 Mg PO 2XWK 01/19/17 Reported WEDNESDAY, WEDNESDAY Biotin 5000 (Biotin) 5 Mg Cap 1 Tab PO QAM 05/16/15 Reported Glucophage Er (Metformin HCl) 500 Mg Tab 1,000 Units PO BID 05/16/15 Reported Provider Instructions Activity Restrictions - No exercising or heavy lifting for 24 hours. - Do not drink alcohol the day of the procedure. - Do not drive a car or operate machinery until the day after the procedure. - Do not make any important decisions or sign important papers in 24 hours after the procedure. Following Day: - Return to full activity which may include returning to work/school. Diet Start your diet with liquids and light foods (jello, soup, juice, toast). Then eat your usual diet if not nauseated. Treatment For Common After Affects For mild abdominal pain, bloating, or excessive gas: - Rest - Eat lightly - Lie on right side Follow-Up Information Follow-up with DR. MACHUCA as scheduled Anesthesia Information What You Should Know You have had a procedure that required some medicine to reduce anxiety and discomfort. This treatment is called moderate sedation. After receiving the treatment, you may be sleepy, but you will be able to breathe on your own. The effects of the treatment may last for several hours. Follow these instructions along with Activity/Diet recommendations noted above: * Do NOT do anything where dizziness or clumsiness would be dangerous. * Rest quietly at home today, then you can be up and about tomorrow. * Have a responsible person stay with you the rest of today. * You may have had an I.V. today. If so, you may take the dressing off later today. Recommendations Call your doctor if: * Trouble breathing * Continuous vomiting for more than 24 hours * Temperature above 101 degrees * Severe abdominal pain or bloating * Pain not relieved by pain medicine ordered * There is increased drainage or redness from any incision * A large amount of rectal bleeding greater than 2-3 tablespoons. (If you had a polyp/s removed or have hemorrhoids, a small amount of blood - from the rectum is to be expected.) * You have any unanswered questions or concerns. IN THE EVENT OF A SERIOUS EMERGENCY, GO TO THE NEAREST EMERGENCY ROOM Your discharge instructions were prepared by provider Jonathan Burger. Patient Instructions Signature Page Audrey Regalado Patient (or Guardian) Signature/Date: I have read and understand the instructions given to me by my caregivers. Caregiver/RN/Doctor Signature/Date: The above-named patient and/or guardian has received patient instructions on this date. + Original Patient Signature Page (only) stays with chart. Please make copy for patient.
--- NOTE | 2018-04-22 10:03 | Anesthesiology Progress Note ---
Anesthesia Post Op Note Date & Time Apr 22, 2018 at 10:03 Vital Signs Pain Intensity: 0 Vital Signs Past 12 Hours Date Time Temp Pulse Resp B/P (MAP) Pulse Ox O2 Delivery O2 Flow Rate FiO2 04/22/18 09:54 36.7 76 18 108/42 (64) 96 Room Air 04/22/18 08:56 36.8 66 18 144/65 (91) 98 Room Air Notes Mental Status: alert / awake / arousable, participated in evaluation Pt Amnestic to Procedure: Yes Nausea / Vomiting: adequately controlled Pain: adequately controlled Airway Patency, RR, SpO2: stable & adequate BP & HR: stable & adequate Hydration State: stable & adequate Anesthetic Complications: no major complications apparent
[2018-04-22 10:24] VITALS: BP 123/59; PULSE 72; O2SAT 99
== END | disposition home or self-care (01) ==
LOC: C.GI 08:36
PROVIDERS: ATTEND Internal Medicine
DX: D50.9 Iron deficiency anemia, unspecified (principal); K20.9 Esophagitis, unspecified; I10 Essential (primary) hypertension; E78.5 Hyperlipidemia, unspecified; I35.0 Nonrheumatic aortic (valve) stenosis; I47.1 Supraventricular tachycardia; K57.90 Diverticulosis of intestine, part unspecified, without perforation or abscess without bleeding; K21.9 Gastro-esophageal reflux disease without esophagitis; E11.9 Type 2 diabetes mellitus without complications; Z79.4 Long term (current) use of insulin; E03.9 Hypothyroidism, unspecified; Z87.891 Personal history of nicotine dependence; Z88.1 Allergy status to other antibiotic agents

== ENCOUNTER 2021-04-04 19:49 | Inpatient (IN) ==
[2021-04-04] MEDS ORDERED: NovoLIN-R INSULIN PER UNIT CHARGE IV STA ×2 (20:40→22:20)
[2021-04-04] MEDS ORDERED: SODIUM CHLORIDE 0.9% 500 ML IV SCH (20:45)
--- NOTE | 2021-04-04 20:45 | Emergency Department Note ---
History of Present Illness General Chief complaint: Hyperglycemia Stated complaint: DIABETIC, VERY HIGH BLOOD SUGAR Time Seen by Provider: 04/04/21 20:32 Source: patient History of Present Illness Provider complaint: Hyperglycemia Onset (ago): day(s) Severity: severe Pain Consistency: + constant Quality: + other (Blood sugar over 400) Relieved By: + none Exacerbated By: + none Associated symptoms: + confusion; no chest pain, no cough, no fever/chills, no nausea/vomiting or no shortness of breath This is a 65-year-old female who presents with elevated blood sugars since this morning. They have been in the 400 range all day. She has been taking her insulin as prescribed and has not changed her diet. She stopped using her pump yesterday and is injecting herself today. She took 10 units of Lantus at 4:30 PM but her blood sugar was still in the 400s at 7 so she came in for evaluation. She denies any specific symptoms. She has had no fever, cough or cold symptoms, chest pain, shortness of breath, abdominal pain, vomiting, diarrhea or urinary symptoms. She does state that she has a history of cirrhosis and had a TIPS procedure in January after which she has had intermittent confusion. Her confusion seems to be more pronounced today. She has been compliant with her lactulose. She is awaiting to get on the liver transplant list but has to have a cardiac valve replacement first for aortic stenosis. She is on Lasix. Home Medications Medication Instructions Recorded Confirmed Type atorvastatin 10 mg tablet 10 mg PO 2XWK tab 05/15/19 04/04/21 History levothyroxine 50 mcg tablet 50 mcg PO QAM tab 05/15/19 04/04/21 History omeprazole 40 mg capsule,delayed 40 mg PO QAM cap 05/15/19 04/04/21 History release biotin 5,000 mcg sublingual tablet 5,000 mcg SL QAM 07/03/19 04/04/21 History calcium carbonate-vitamin D3 600 1 cap PO PM cap 07/03/19 04/04/21 History mg (1,500 mg)-400 unit capsule cholecalciferol (vitamin D3) 50 2,000 units PO QAM 07/03/19 04/04/21 History mcg (2,000 unit) capsule ferrous sulfate 325 mg (65 mg 325 mg PO QAM tab 07/03/19 04/04/21 History iron) tablet multivitamin (Multiple Vitamins) 1 tab PO QAM 07/03/19 04/04/21 History vitamin B complex 1 cap PO QAM 07/03/19 04/04/21 History fluoride (sodium) 1.1 % dental 1 applic DENTAL BID 06/10/20 04/04/21 History paste insulin glargine 100 unit/mL (3 10 unit SUBCUT AMPM ml 07/22/20 04/04/21 History mL) subcutaneous pen (Lantus Solostar U-100 Insulin) insulin lispro 100 unit/mL 15 unit SUBCUT QDD 09/04/20 04/04/21 History subcutaneous pen zinc 50 mg tablet 50 mg PO 3XWK 11/06/20 04/04/21 History lactulose 10 gram/15 mL oral syrup 10 g PO QAM 02/27/21 04/04/21 History ondansetron HCl 4 mg tablet 4 mg PO Q8H PRN 02/27/21 04/04/21 History (Zofran) furosemide 20 mg tablet 40 mg PO QAM 04/04/21 04/04/21 History potassium chloride 10 mEq 40 meq PO QAM 04/04/21 04/04/21 History tablet,extended release spironolactone 25 mg tablet 25 mg PO QAM 04/04/21 04/04/21 History Allergies Allergy/AdvReac Type Severity Reaction Status Date / Time bacitracin Allergy Mild REDNESS/MONICA Verified 04/04/21 21:36 H neomycin Allergy Mild REDNESS Verified 04/04/21 21:36 AND RASH Past Med/Surg History Medical History Acute kidney injury Anemia Aortic stenosis moderate 2020 Aortic stenosis, mild Basal cell carcinoma of left side of nose Celiac disease CKD (chronic kidney disease) stage 3, GFR 30-59 ml/min Baseline creat 1.1-1.2 per 08/15/19 nephro note Cyst, ovarian Diabetes mellitus, type 2 Diverticulosis Encephalopathy acute pt had a stomach bug that lead to encephalopthy per pt. Esophageal varices no banding GERD (gastroesophageal reflux disease) History of basal cell cancer Hyperlipidemia Hypertension Hypothyroidism Malignant melanoma of skin of right ear Neoplasm of uncertain behavior of appendix Nonalcoholic fatty liver disease Reducible umbilical hernia Stage 3b chronic kidney disease SVT (supraventricular tachycardia) Surgical History History of adenoidectomy History of bilateral salpingo-oophorectomy (BSO) @ [facility] 12/2018 History of section x2 ; History of colonoscopy with polypectomy History of dilatation and curettage History of esophagogastroduodenoscopy (EGD) 01/02/19 and 01/13/20 History of facial surgery melanoma removal of right side of face by ear History of hysterectomy 1990 History of wisdom tooth extraction 1973 Hx of abdominal surgery stomach nodules 1992 S/P foot surgery, left x3--neuroma removal , , S/P TIPS (transjugular intrahepatic portosystemic shunt) Status post Mohs surgery for basal cell carcinoma remove off nose Family History Grandmother (Maternal) Family history of diabetes mellitus Mother Family history of diabetes mellitus Hypertension Father Hypertension Other No family history of adverse response to anesthesia Social History Smoking Status: Never smoker Tobacco Type: Cigarettes packs per day: 0.75; Years Smoked: 25; Second Hand Exposure: Yes (parents smoked/ smoked); Hx Alcohol Use: No Hx Substance Use: No Preferred Language: Slovak Communication Ability: Effective Long Distance Billing Operator Required: No Beliefs That Will Affect Care: None Current Living Situation: Spouse Current Living Situation Comment: Lives with and 2 30yr old sons current occupational status: retired Feels Safe at Home: Yes Assistive Devices: Glasses Review of Systems See HPI for pertinent positives & negatives. and A total of 10 systems reviewed and were otherwise negative Physical Exam Vital Signs Vital Signs - 24 hr 04/04/21 19:58 04/04/21 21:25 04/04/21 21:35 Temperature 36.6 C Temperature Source Temporal Artery Scan Pulse Rate 92 H 75 Pulse Rate [Apical] 81 Pulse Rate from SpO2 Sensor 106 H Respiratory Rate 18 20 19 Respiratory Effort / Characteristics Non-Labored Spontaneous Non-Labored Respiratory Depth Normal Normal Blood Pressure 135/59 L 160/42 H Blood Pressure [Right Arm] 160/42 H Blood Pressure Mean 84 81 Blood Pressure Mean [Right Arm] 81 Pulse Oximetry 99 99 99 Oxygen Delivery Method Room Air Room Air Room Air Sepsis Recent Fever Within 48 Hours No Sepsis New/Unexplained Change in Mental Status N/A Sepsis Action Taken by Nursing No Action Required 04/04/21 22:15 04/04/21 23:56 Temperature Temperature Source Pulse Rate Pulse Rate [Apical] 79 77 Pulse Rate from SpO2 Sensor Respiratory Rate 16 24 Respiratory Effort / Characteristics Respiratory Depth Blood Pressure Blood Pressure [Right Arm] 158/93 H 155/42 H Blood Pressure Mean Blood Pressure Mean [Right Arm] 114 79 Pulse Oximetry 95 98 Oxygen Delivery Method Room Air Room Air Sepsis Recent Fever Within 48 Hours Sepsis New/Unexplained Change in Mental Status Sepsis Action Taken by Nursing Constitutional: Vital signs reviewed. Eyes: Pupils are equal round reactive to light. Conjunctiva are noninjected. ENT: Pharynx is clear without erythema or exudate. Mucous membranes are dry. Neck supple without meningeal signs. Respiratory: Clear to auscultation bilaterally. Breath sounds are equal bilaterally. Cardiovascular: Regular rate and rhythm. No rubs or gallops. GI: Soft, nondistended and nontender. Bowel sounds are present. Musculoskeletal: 1+ pitting edema bilaterally. No lower extremity tenderness. Integumentary: No cyanosis. or jaundice. Neurological: The patient is awake and alert. No focal deficits. Psychiatric: Anxious. Course Administered Medications Sodium Chloride (Nss) 500 mls @ 80 mls/hr IV .[id number] [facility] Stop: 05/04/21 20:44 Last Admin: 04/04/21 21:30 Dose: 80 mls/hr Documented by: [id number] Albumin Human (Albumin 25%) 12.5 gm in 50 mls @ 50 mls/hr IV NOW STA Stop: 04/05/21 00:53 Last Admin: 04/05/21 00:03 Dose: 50 mls/hr Documented by: [id number] Discontinued Medications Insulin Human Regular (Novolin-R Insulin Per Unit Charge) 4 units IV NOW STA Stop: 04/04/21 20:41 Last Admin: 04/04/21 21:29 Dose: 4 units Documented by: [id number] Cosigned by: [id number] Insulin Human Regular (Novolin-R Insulin Per Unit Charge) 4 units IV NOW STA Stop: 04/04/21 22:21 Last Admin: 04/04/21 22:26 Dose: 4 units Documented by: [id number] Cosigned by: [id number] Medical Decision Making Differential Diagnosis Diabetic ketoacidosis, hyperglycemia, UTI, pneumonia, hepatic encephalopathy Medical Records Attestation: I reviewed the patient's medical records. I did perform a limited focused review of portions of the patient's old chart on the electronic medical record. The patient has had no recent pertinent visits to this hospital. Home Medications Current Medication List: was personally reviewed by me Laboratory Data Attestation: I reviewed the patient's lab results. Result diagrams: 04/04/21 21:13 04/04/21 21:13 Lab Results 04/04/21 04/04/21 04/04/21 Range/Units 20:01 21:13 21:13 WBC (4.8-10.8) K/uL RBC (4.2-5.4) M/uL Hgb (12.0-16.0) g/dL Hct (37-47) % MCV (80-100) fL MCH (25-34) pg MCHC (32-36) g/dL RDW Std Deviation (36.4-46.3) fL RDW Coeff of Ryan (11.5-14.5) % Plt Count (130-400) K/uL MPV (7.4-10.4) fL Immature Gran % (Auto) % Neut % (Auto) % Lymph % (Auto) % Ramsey % (Auto) % Eos % (Auto) % Baso % (Auto) % Neut # (Auto) (1.4-6.5) K/uL Lymph # (Auto) (1.2-3.4) K/uL Ramsey # (Auto) (0.11-0.59) K/uL Eos # (Auto) (0-0.5) K/uL Baso # (Auto) (0-0.2) K/uL Immature Gran # (Auto) (0.00-0.02) K/uL Polychromasia Ovalocytes VBG pH (7.36-7.41) VBG pCO2 (38-50) mmHg VBG pO2 mmHg VBG HCO3 mmol/L VBG O2 Saturation % VBG Base Excess mEq/L Barometric Pressure mm/Hg Sodium 136 (136-145) mmol/L Potassium 3.9 (3.5-5.1) mmol/L Chloride 106 (98-107) mmol/L Carbon Dioxide 25 (21-32) mmol/L Anion Gap 6.0 (3-11) BUN 20 H (7-18) mg/dl Creatinine 1.50 H (0.6-1.2) mg/dl Est Cr Clr Drug Dosing 36.4 ml/min Est GFR ( Amer) 41.9 ml/min Est GFR (Non-Af Amer) 36.2 ml/min BUN/Creatinine Ratio 13.5 (10-20) Glucose 528 H* (70-99) mg/dl POC Glucose 493 H* (70-99) mg/dl Calcium 8.9 (8.5-10.1) mg/dl Total Bilirubin 1.1 H (0.2-1) mg/dl AST 25 (15-37) U/L ALT 22 (12-78) U/L Alkaline Phosphatase 108 (45-117) U/L Ammonia 58.6 H (11-32) umol/L Troponin I 0.021 (0-0.045) ng/ml Total Protein 6.3 L (6.4-8.2) gm/dl Albumin 2.8 L (3.4-5.0) gm/dl Globulin 3.5 (2.5-4.0) gm/dl Albumin/Globulin Ratio 0.8 L (0.9-2) Beta-Hydroxybutyric Acd 0.92 (0.2-2.81) mg/dl Urine Color Urine Appearance (Clear) Urine pH (4.5-7.5) Ur Specific [place] (1.000-1.030) Urine Protein (Negative) Urine Glucose (UA) (Negative) Urine Ketones (Negative) Urine Blood (Negative) Urine Nitrite (Negative) Urine Bilirubin (Negative) Urine Urobilinogen (Negative) Ur Leukocyte Esterase (Negative) COVID-19 Eval Order SARS-CoV-2 (PCR) (Negative) 04/04/21 04/04/21 04/04/21 Range/Units 21:13 21:13 21:32 WBC 4.38 L (4.8-10.8) K/uL RBC 3.65 L (4.2-5.4) M/uL Hgb 10.5 L (12.0-16.0) g/dL Hct 32.9 L (37-47) % MCV 90.1 (80-100) fL MCH 28.8 (25-34) pg MCHC 31.9 L (32-36) g/dL RDW Std Deviation 49.4 H (36.4-46.3) fL RDW Coeff of Ryan 15.1 H (11.5-14.5) % Plt Count 121 L (130-400) K/uL MPV 11.1 H (7.4-10.4) fL Immature Gran % (Auto) 0.0 % Neut % (Auto) 78.3 % Lymph % (Auto) 11.2 % Ramsey % (Auto) 9.8 % Eos % (Auto) 0.5 % Baso % (Auto) 0.2 % Neut # (Auto) 3.43 (1.4-6.5) K/uL Lymph # (Auto) 0.49 L (1.2-3.4) K/uL Ramsey # (Auto) 0.43 (0.11-0.59) K/uL Eos # (Auto) 0.02 (0-0.5) K/uL Baso # (Auto) 0.01 (0-0.2) K/uL Immature Gran # (Auto) 0.00 (0.00-0.02) K/uL Polychromasia 1+ Ovalocytes 1+ VBG pH 7.40 (7.36-7.41) VBG pCO2 39 (38-50) mmHg VBG pO2 34 mmHg VBG HCO3 24 mmol/L VBG O2 Saturation < 60.0 % VBG Base Excess -0.7 mEq/L Barometric Pressure 734.7 mm/Hg Sodium (136-145) mmol/L Potassium (3.5-5.1) mmol/L Chloride (98-107) mmol/L Carbon Dioxide (21-32) mmol/L Anion Gap (3-11) BUN (7-18) mg/dl Creatinine (0.6-1.2) mg/dl Est Cr Clr Drug Dosing ml/min Est GFR ( Amer) ml/min Est GFR (Non-Af Amer) ml/min BUN/Creatinine Ratio (10-20) Glucose (70-99) mg/dl POC Glucose (70-99) mg/dl Calcium (8.5-10.1) mg/dl Total Bilirubin (0.2-1) mg/dl AST (15-37) U/L ALT (12-78) U/L Alkaline Phosphatase (45-117) U/L Ammonia (11-32) umol/L Troponin I (0-0.045) ng/ml Total Protein (6.4-8.2) gm/dl Albumin (3.4-5.0) gm/dl Globulin (2.5-4.0) gm/dl Albumin/Globulin Ratio (0.9-2) Beta-Hydroxybutyric Acd (0.2-2.81) mg/dl Urine Color Yellow Urine Appearance Clear (Clear) Urine pH 6.5 (4.5-7.5) Ur Specific [place] 1.013 (1.000-1.030) Urine Protein Negative (Negative) Urine Glucose (UA) 3+ H (Negative) Urine Ketones Negative (Negative) Urine Blood Negative (Negative) Urine Nitrite Negative (Negative) Urine Bilirubin Negative (Negative) Urine Urobilinogen Negative (Negative) Ur Leukocyte Esterase Negative (Negative) COVID-19 Eval Order SARS-CoV-2 (PCR) (Negative) 04/04/21 04/04/21 04/04/21 Range/Units 22:10 23:10 23:15 WBC (4.8-10.8) K/uL RBC (4.2-5.4) M/uL Hgb (12.0-16.0) g/dL Hct (37-47) % MCV (80-100) fL MCH (25-34) pg MCHC (32-36) g/dL RDW Std Deviation (36.4-46.3) fL RDW Coeff of Ryan (11.5-14.5) % Plt Count (130-400) K/uL MPV (7.4-10.4) fL Immature Gran % (Auto) % Neut % (Auto) % Lymph % (Auto) % Ramsey % (Auto) % Eos % (Auto) % Baso % (Auto) % Neut # (Auto) (1.4-6.5) K/uL Lymph # (Auto) (1.2-3.4) K/uL Ramsey # (Auto) (0.11-0.59) K/uL Eos # (Auto) (0-0.5) K/uL Baso # (Auto) (0-0.2) K/uL Immature Gran # (Auto) (0.00-0.02) K/uL Polychromasia Ovalocytes VBG pH (7.36-7.41) VBG pCO2 (38-50) mmHg VBG pO2 mmHg VBG HCO3 mmol/L VBG O2 Saturation % VBG Base Excess mEq/L Barometric Pressure mm/Hg Sodium (136-145) mmol/L Potassium (3.5-5.1) mmol/L Chloride (98-107) mmol/L Carbon Dioxide (21-32) mmol/L Anion Gap (3-11) BUN (7-18) mg/dl Creatinine (0.6-1.2) mg/dl Est Cr Clr Drug Dosing ml/min Est GFR ( Amer) ml/min Est GFR (Non-Af Amer) ml/min BUN/Creatinine Ratio (10-20) Glucose (70-99) mg/dl POC Glucose 465 H* 370 H* (70-99) mg/dl Calcium (8.5-10.1) mg/dl Total Bilirubin (0.2-1) mg/dl AST (15-37) U/L ALT (12-78) U/L Alkaline Phosphatase (45-117) U/L Ammonia (11-32) umol/L Troponin I (0-0.045) ng/ml Total Protein (6.4-8.2) gm/dl Albumin (3.4-5.0) gm/dl Globulin (2.5-4.0) gm/dl Albumin/Globulin Ratio (0.9-2) Beta-Hydroxybutyric Acd (0.2-2.81) mg/dl Urine Color Urine Appearance (Clear) Urine pH (4.5-7.5) Ur Specific [place] (1.000-1.030) Urine Protein (Negative) Urine Glucose (UA) (Negative) Urine Ketones (Negative) Urine Blood (Negative) Urine Nitrite (Negative) Urine Bilirubin (Negative) Urine Urobilinogen (Negative) Ur Leukocyte Esterase (Negative) COVID-19 Eval Order Covid19 at [facility] SARS-CoV-2 (PCR) (Negative) 04/04/21 Range/Units 23:15 WBC (4.8-10.8) K/uL RBC (4.2-5.4) M/uL Hgb (12.0-16.0) g/dL Hct (37-47) % MCV (80-100) fL MCH (25-34) pg MCHC (32-36) g/dL RDW Std Deviation (36.4-46.3) fL RDW Coeff of Ryan (11.5-14.5) % Plt Count (130-400) K/uL MPV (7.4-10.4) fL Immature Gran % (Auto) % Neut % (Auto) % Lymph % (Auto) % Ramsey % (Auto) % Eos % (Auto) % Baso % (Auto) % Neut # (Auto) (1.4-6.5) K/uL Lymph # (Auto) (1.2-3.4) K/uL Ramsey # (Auto) (0.11-0.59) K/uL Eos # (Auto) (0-0.5) K/uL Baso # (Auto) (0-0.2) K/uL Immature Gran # (Auto) (0.00-0.02) K/uL Polychromasia Ovalocytes VBG pH (7.36-7.41) VBG pCO2 (38-50) mmHg VBG pO2 mmHg VBG HCO3 mmol/L VBG O2 Saturation % VBG Base Excess mEq/L Barometric Pressure mm/Hg Sodium (136-145) mmol/L Potassium (3.5-5.1) mmol/L Chloride (98-107) mmol/L Carbon Dioxide (21-32) mmol/L Anion Gap (3-11) BUN (7-18) mg/dl Creatinine (0.6-1.2) mg/dl Est Cr Clr Drug Dosing ml/min Est GFR ( Amer) ml/min Est GFR (Non-Af Amer) ml/min BUN/Creatinine Ratio (10-20) Glucose (70-99) mg/dl POC Glucose (70-99) mg/dl Calcium (8.5-10.1) mg/dl Total Bilirubin (0.2-1) mg/dl AST (15-37) U/L ALT (12-78) U/L Alkaline Phosphatase (45-117) U/L Ammonia (11-32) umol/L Troponin I (0-0.045) ng/ml Total Protein (6.4-8.2) gm/dl Albumin (3.4-5.0) gm/dl Globulin (2.5-4.0) gm/dl Albumin/Globulin Ratio (0.9-2) Beta-Hydroxybutyric Acd (0.2-2.81) mg/dl Urine Color Urine Appearance (Clear) Urine pH (4.5-7.5) Ur Specific [place] (1.000-1.030) Urine Protein (Negative) Urine Glucose (UA) (Negative) Urine Ketones (Negative) Urine Blood (Negative) Urine Nitrite (Negative) Urine Bilirubin (Negative) Urine Urobilinogen (Negative) Ur Leukocyte Esterase (Negative) COVID-19 Eval Order SARS-CoV-2 (PCR) NEGATIVE (Negative) Imaging Data Radiologist's Impression: Chest X-Ray 04/04/21 20:40 SINGLE VIEW CHEST CLINICAL HISTORY: Hyperglycemia. FINDINGS: An AP, portable, upright chest radiograph is compared to study dated 07/18/2020. The heart is enlarged. The pulmonary vasculature is noncongested. Chronic interstitial thickening is similar to previous. There is mild bibasilar atelectasis. The lungs and pleural spaces are otherwise clear. No pneumothorax is seen. The skeletal structures are osteopenic. There are healed left-sided rib fractures. A vascular stent projects over the right upper quadrant of the abdomen. IMPRESSION: Cardiomegaly with no active disease in the chest. ACT 112: Negative or not required by law. Electronically signed by: Alvaro Mauro M.D. 04/04/2021 9:08 PM ECG Data Attestation: I personally reviewed and interpreted this ECG as follows: Indication: + other (Hyperglycemia) Rate (beats per minute): 81 Rhythm: + normal sinus ECG Intervals/blocks: + Right Bundle branch block ECG ST segments: + T-wave inversions ECG Findings: + PACs Comparison ECG Date: no prior available MDM Narrative I did evaluate the patient as noted above. The patient is presenting with hyperglycemia today without any other significant symptoms. She has had some intermittent confusion since her TIPS procedure with slightly increased confusion today but otherwise has no other complaints. IV access was established. She is on Lasix for fluid retention and so I started her on normal saline 80 mL an hour. She was also given 4 units of IV regular insulin. I did place an order for continuous cardiac monitoring. The monitor showed normal sinus rhythm at a rate of 81 bpm. I did order and personally review the patient's 12-lead EKG as described above. She has T wave inversions with PACs. No old EKGs available for comparison. I was able to find a prior cardiology consult which mentioned her having PACs and a right bundle branch block. They did not mention whether or not she had T wave inversions. I did order and personally reviewed the images of the patient's chest x-ray as described above. She has cardiomegaly without any acute findings. I did order a urine analysis. She does not have an infection. I did order and review the patient's blood work as noted in the electronic medical record. CBC demonstrates a white count of 4.3. Hemoglobin is 10.5. Platelet count is 121. VBG does not demonstrate any signs of acidosis. She does not have an anion gap. Her blood sugar is 528. Creatinine is at baseline at 1.5. Ammonia is 58.6. Troponin is 0.021. I did reassess the patient. Her blood sugar was still over 400 after the insulin. She does state that she feels better and seems more alert at this time. She does not know what her usual ammonia levels are. I did discuss the test results with the patient. I did recommend hospitalization for further care and evaluation and repeat cardiac biomarkers. The case was discussed with the lining caser and the hospitalist was informed. She was given additional insulin 4 units IV. Her blood sugar did come down to 370. Covid screening was negative. Impression & Plan Acute hyperglycemia, Abnormal ECG, Hyperammonemia, Pancytopenia Discharge Plan Visit Data Chief Complaint: Hyperglycemia Stated Complaint: DIABETIC, VERY HIGH BLOOD SUGAR ED Provider: Alexandro Maier Discharge Problem: Acute hyperglycemia, Abnormal ECG, Hyperammonemia, Pancytopenia Patient Disposition: Being Evaluated by Hospitalist Forms Stand Alone Forms: My [facility] Prescriptions Prescriptions: No Action atorvastatin 10 mg tablet 10 mg PO 2XWK RF: 0 levothyroxine 50 mcg tablet 50 mcg PO QAM RF: 0 omeprazole 40 mg capsule,delayed release(DR/EC) 40 mg PO QAM RF: 0 ferrous sulfate 325 mg (65 mg iron) tablet 325 mg PO QAM RF: 0 calcium carbonate-vitamin D3 600 mg(1,500mg) -400 unit capsule 1 cap PO PM RF: 0 biotin 5,000 mcg tablet, sublingual 5,000 mcg SL QAM RF: 0 multivitamin [Multiple Vitamins] tablet 1 tab PO QAM RF: 0 vitamin B complex capsule 1 cap PO QAM RF: 0 cholecalciferol (vitamin D3) 2,000 unit capsule 2,000 units PO QAM RF: 0 fluoride (sodium) 1.1 % paste 1 applic dental BID RF: 0 Lantus Solostar U-100 Insulin 100 unit/mL (3 mL) insulin pen 10 unit SUBCUT AMPM RF: 0 insulin lispro [Humalog Pen] 100 unit/mL Insulin Pen 15 unit SUBCUT QDD RF: 0 zinc 50 mg tablet 50 mg PO 3XWK RF: 0 lactulose 10 gram/15 mL Syrup 10 g PO QAM RF: 0 ondansetron HCl [Zofran] 4 mg Tablet 4 mg PO Q8H PRN (Reason: Nausea) RF: 0 potassium chloride 10 mEq tablet extended release 40 meq PO QAM RF: 0 spironolactone 25 mg tablet 25 mg PO QAM RF: 0 furosemide 20 mg tablet 40 mg PO QAM RF: 0 Referrals Referrals: Jarrod Borges MD [Primary Care Provider] -
--- NOTE | 2021-04-04 21:10 | XRay Report ---
SINGLE VIEW CHEST CLINICAL HISTORY: Hyperglycemia. FINDINGS: An AP, portable, upright chest radiograph is compared to study dated 07/18/2020. The heart is enlarged. The pulmonary vasculature is noncongested. Chronic interstitial thickening is similar to previous. There is mild bibasilar atelectasis. The lungs and pleural spaces are otherwise clear. No pneumothorax is seen. The skeletal structures are osteopenic. There are healed left-sided rib fractur es. A vascular stent projects over the right upper quadrant of the abdomen. IMPRESSION: Cardiomegaly with no active disease in the chest. ACT 112: Negative or not required by law. Electronically signed by: Alvaro Mauro M.D. 04/04/2021 9:08 PM
[2021-04-04 21:24] LABS: Basophils # (auto) 0.01 K/uL (0-0.2); Basophils % (auto) 0.2 %; Eosinophils # (auto) 0.02 K/uL (0-0.5); Eosinophils % (auto) 0.5 %; Hematocrit (blood only) 32.9 % (37-47); Hemoglobin 10.5 g/dL (12.0-16.0); Lymphocytes # (auto) 0.49 K/uL (1.2-3.4); Lymphocytes % (auto) 11.2 %; Mean Corpuscular Hemoglobin 28.8 pg (25-34); Mean Corpuscular Hgb Conc 31.9 g/dL (32-36); Mean Corpuscular Volume 90.1 fL (80-100); Mean Platelet Volume 11.1 fL (7.4-10.4); Monocytes # (auto) 0.43 K/uL (0.11-0.59); Monocytes % (auto) 9.8 %; Neutrophils # (auto) 3.43 K/uL (1.4-6.5); Neutrophils % (auto) 78.3 %; Platelet Count 121 K/uL (130-400); RDW Coefficient of Variation 15.1 % (11.5-14.5); RDW Standard Deviation 49.4 fL (36.4-46.3); Red Blood Count 3.65 M/uL (4.2-5.4); White Blood Count 4.38 K/uL (4.8-10.8)
[2021-04-04 21:34] LABS: Base Excess VBG -0.7 mEq/L; HCO3 VBG 24 mmol/L; Oxygen Saturation VBG < 60.0 %; PCO2 VBG 39 mmHg (38-50); PO2 VBG 34 mmHg
[2021-04-04 21:45] LABS: Ovalocytes 1+; Polychromasia 1+
[2021-04-04 21:52] LABS: Albumin Globulin Ratio 0.8 (0.9-2); Albumin Level 2.8 gm/dl (3.4-5.0); BUN Creatinine Ratio 13.5 (10-20); Beta-Hydroxybutyrate 0.92 mg/dl (0.2-2.81); Bilirubin,Total 1.1 mg/dl (0.2-1); Calcium 8.9 mg/dl (8.5-10.1); Creatinine Clr Calc Pharmacy 36.4 ml/min; Est GFR (African American) 41.9 ml/min; Est GFR (Non-African American) 36.2 ml/min; Globulin 3.5 gm/dl (2.5-4.0); Potassium 3.9 mmol/L (3.5-5.1); Total Protein 6.3 gm/dl (6.4-8.2); Troponin I 0.021 ng/ml (0-0.045)
[2021-04-04 21:55] LABS: Appearance Urine Clear (Clear); Bilirubin Urine Negative (Negative); Blood Urine Negative (Negative); Color Urine Yellow; Glucose Urine UA 3+ (Negative); Ketones Urine Negative (Negative); Leukocyte Esterase Urine Negative (Negative); Nitrite Urine Negative (Negative); Protein Urine Negative (Negative); Specific Gravity Urine 1.013 (1.000-1.030); Urobilinogen Urine Negative (Negative); pH Urine 6.5 (4.5-7.5)
--- NOTE | 2021-04-04 23:51 | History & Physical Report ---
Date of Service April 04, 2021 Assessment & Plan (1) Hepatic encephalopathy: Plan: Hepatic encephalopathy/status post TIPS procedure/hyperammonemia/liver cirrhosis secondary to VARGAS- She is status post TIPS procedure on 02/03/2021, reports prior to that she had to have therapeutic paracentesis done at least monthly. Ammonia level is 58.6. She has not been able to take her lactulose regularly as directed, and has only been taking half a dose a day, and may not have bowel movement on a daily basis. Increase lactulose from 10 g daily to 20 g p.o. twice daily. Follow serial ammonia levels Patient and both note some improvement in her symptoms with improvement in her blood sugar while in the ED Consult gastroenterology Dr. Anderson (2) Liver cirrhosis secondary to VARGAS: Plan: Patient does follow with Dr. Still, hepatology, at [facility]. She reports that she had been on the liver transplant list, but was removed, until she can have a TAVR performed (3) S/P TIPS (transjugular intrahepatic portosystemic shunt): Plan: Surgery took place at [facility] on 02/03/2021. (4) Hyperammonemia: Plan: Follow serially (5) Hyperglycemia due to type 2 diabetes mellitus: Plan: Glucose upon admission was 528. Unclear etiology, as patient reports that she has been eating very sparingly. She did receive regular insulin 4 units IV x2 from the ED, with a resultant improvement and Accu-Chek to 336. Have to avoid significant IV fluids, as patient did have an issue with fluid overload while admitted at [facility]. Continue insulin glargine 10 units subcu twice daily, giving a dose this evening. Placed on Accu-Cheks AC at bedtime/every 4 hours, with NovoLog coverage per scale Check hemoglobin A1c (6) Acute kidney injury superimposed on CKD: Plan: Creatinine 1.50 upon admission, with range 1.10-1.79 Follow laboratory serially, again being careful to avoid fluid overload (7) Hyperlipidemia: Plan: Continue atorvastatin 10 mg daily (8) Hypertension: Plan: Hypertension/SVT/aortic stenosis- Continue furosemide, spironolactone and potassium chloride Follow serial laboratories Patient reports that she has a pending appointment for TAVR assessment at [facility] (9) SVT (supraventricular tachycardia): Plan: No recent issues (10) Aortic stenosis: Plan: See above (11) Esophageal varices: Plan: Esophageal varices/GERD- No recent issues with bleeding Has not required any banding in the past Continue omeprazole 40 mg daily/pantoprazole 40 mg daily (12) GERD (gastroesophageal reflux disease): (13) Hypothyroidism: Plan: Continue levothyroxine 50 mcg daily (14) Celiac disease: Plan: Placed on gluten-free and diabetic diet History of Present Illness Chief Complaint: The patient presents to the emergency department with complaint of confusion, blood sugar greater than 400, and generalized malaise worsening as the day progressed Primary Care Provider: Jarrod Borges MD The patient is a 65-year-old female with a past medical history including radial head fracture, liver cirrhosis secondary to VARGAS, internal hemorrhoids, diabetes mellitus, acute hyperglycemia, hyperammonemia, ZAY on CKD stage IIIb, hyperlipidemia, hypertension, SVT, aortic stenosis and status post TIPS procedure on 02/03/2021. Patient reports that she is to be seen by physicians at [facility] for possible TAVR in the near future, which needs to be done before she can return to the liver transplant list. She follows with hepatology Dr. Still at [facility], Dr. Anderson from gastroenterology locally at [facility], and Dr. White from [facility] cardiology. She reports that she has been taking lactulose half a dose daily, but there are several days that she may not have a bowel movement. Patient reports that she had been having regular ultrasound-guided paracentesis, but has not had to have any since the TIPS procedure. She did receive regular insulin 4 units IV x2, with blood sugar decrease from 528-336, and seemed to have significantly improved mentation as noted by patient and her . Pertinent laboratories: Hemoglobin 10.5, platelets 121, glucose 528, creatinine 1.50, ammonia level 58.6, albumin 2.8 and COVID-19 negative. Allergies Allergy/AdvReac Type Severity Reaction Status Date / Time bacitracin Allergy Mild REDNESS/MONICA Verified 04/04/21 21:36 H neomycin Allergy Mild REDNESS Verified 04/04/21 21:36 AND RASH Home Medications Medication Instructions Recorded Confirmed Type atorvastatin 10 mg tablet 10 mg PO 2XWK tab 05/15/19 04/04/21 History levothyroxine 50 mcg tablet 50 mcg PO QAM tab 05/15/19 04/04/21 History omeprazole 40 mg capsule,delayed 40 mg PO QAM cap 05/15/19 04/04/21 History release biotin 5,000 mcg sublingual tablet 5,000 mcg SL QAM 07/03/19 04/04/21 History calcium carbonate-vitamin D3 600 1 cap PO PM cap 07/03/19 04/04/21 History mg (1,500 mg)-400 unit capsule cholecalciferol (vitamin D3) 50 2,000 units PO QAM 07/03/19 04/04/21 History mcg (2,000 unit) capsule ferrous sulfate 325 mg (65 mg 325 mg PO QAM tab 07/03/19 04/04/21 History iron) tablet multivitamin (Multiple Vitamins) 1 tab PO QAM 07/03/19 04/04/21 History vitamin B complex 1 cap PO QAM 07/03/19 04/04/21 History fluoride (sodium) 1.1 % dental 1 applic DENTAL BID 06/10/20 04/04/21 History paste insulin glargine 100 unit/mL (3 10 unit SUBCUT AMPM ml 07/22/20 04/04/21 History mL) subcutaneous pen (Lantus Solostar U-100 Insulin) insulin lispro 100 unit/mL 15 unit SUBCUT QDD 09/04/20 04/04/21 History subcutaneous pen zinc 50 mg tablet 50 mg PO 3XWK 11/06/20 04/04/21 History lactulose 10 gram/15 mL oral syrup 10 g PO QAM 02/27/21 04/04/21 History ondansetron HCl 4 mg tablet 4 mg PO Q8H PRN 02/27/21 04/04/21 History (Zofran) furosemide 20 mg tablet 40 mg PO QAM 04/04/21 04/04/21 History potassium chloride 10 mEq 40 meq PO QAM 04/04/21 04/04/21 History tablet,extended release spironolactone 25 mg tablet 25 mg PO QAM 04/04/21 04/04/21 History Past Med/Surg History Medical History (Updated 04/05/21 @ 02:10 by Won Vieira MD) Acute kidney injury Anemia Aortic stenosis moderate 2020 Aortic stenosis, mild Basal cell carcinoma of left side of nose Celiac disease CKD (chronic kidney disease) stage 3, GFR 30-59 ml/min Baseline creat 1.1-1.2 per 08/15/19 nephro note Cyst, ovarian Diabetes mellitus, type 2 Diverticulosis Encephalopathy acute pt had a stomach bug that lead to encephalopthy per pt. Esophageal varices no banding GERD (gastroesophageal reflux disease) History of basal cell cancer Hyperlipidemia Hypertension Hypothyroidism Malignant melanoma of skin of right ear Neoplasm of uncertain behavior of appendix Nonalcoholic fatty liver disease Reducible umbilical hernia Stage 3b chronic kidney disease SVT (supraventricular tachycardia) Surgical History (Updated 04/05/21 @ 02:10 by Won Vieira MD) History of adenoidectomy History of bilateral salpingo-oophorectomy (BSO) @ [facility] 12/2018 History of section x2 ; History of colonoscopy with polypectomy History of dilatation and curettage History of esophagogastroduodenoscopy (EGD) 01/02/19 and 01/13/20 History of facial surgery melanoma removal of right side of face by ear History of hysterectomy 1990 History of wisdom tooth extraction 1973 Hx of abdominal surgery stomach nodules 1992 S/P foot surgery, left x3--neuroma removal , , S/P TIPS (transjugular intrahepatic portosystemic shunt) Status post Mohs surgery for basal cell carcinoma remove off nose Family History Grandmother (Maternal) Family history of diabetes mellitus Mother Family history of diabetes mellitus Hypertension Father Hypertension Other No family history of adverse response to anesthesia Social History Smoking Status: Former smoker Tobacco Type: Cigarettes packs per day: 0.75; Years Smoked: 25; Smoking End Date: 1999; Second Hand Exposure: No; Hx Alcohol Use: No Hx Substance Use: No Preferred Language: Guatemalan Communication Ability: Effective Cake Knocker Required: No Beliefs That Will Affect Care: None Current Living Situation: Spouse Current Living Situation Comment: With and two grown children current occupational status: retired Other Information That Helps Us Care for You: No Feels Safe at Home: Yes Safety Concerns: Feels Safe At This Time Assistive Devices: Walker Review of Systems Review of Systems: The patient denies chest pain, palpitations, shortness of breath, dyspnea on exertion, cough, sore throat, fevers, chills, sweats, vomiting, diarrhea , constipation, abdominal pain, pelvic pain, blood in urine or stool, dysuria, urinary frequency or urgency, lightheadedness, dizziness, headache, loss of consciousness, rash, abnormal bruising or bleeding, focal weakness, numbness or tingling in arms or legs, generalized arthralgias or myalgias, back or neck pain, or night sweats. The review of systems is otherwise negative other than for that already noted above, and at least 10 systems have been reviewed. Physical Exam Physical Exam: The patient is awake, alert and oriented 3, well developed and well nourished, normocephalic and atraumatic, lying in bed and in no acute distress. HEENT--PERRL, EOMI, mucous membranes and oropharynx dry. Neck--supple. No JVD. No bruits. Thyroid normal, trachea midline, no adenopathy. Heart--normal S1 and S2. No murmurs, rubs or gallops. Lungs--clear bilaterally, no respiratory distress, no accessory muscle use. Abdomen--normal bowel sounds and soft. Nontender. Nondistended. Extremities--2+ bilateral pretibial pitting edema. Dermatologic--normal skin turgor, normal color, no abnormal lymph nodes, no rash. Neurologic--cranial nerves II through XII grossly intact. Rheumatologic--normal range of motion. Psychiatric--normal affect. Results & Data Results & Data ([facility]) Vital Signs (Past 12 Hours) Vital Signs Temp Pulse Pulse Resp BP BP Pulse Ox 04/04/21 22:15 79 16 158/93 H 95 04/04/21 21:35 81 19 160/42 H 99 04/04/21 21:25 75 20 160/42 H 99 04/04/21 19:58 97.9 F 92 H 18 135/59 L 99 Laboratory Results Laboratory Results WBC 4.38 K/uL (4.8-10.8) L 04/04/21 21:13 RBC 3.65 M/uL (4.2-5.4) L 04/04/21 21:13 Hgb 10.5 g/dL (12.0-16.0) L 04/04/21 21:13 Hct 32.9 % (37-47) L 04/04/21 21:13 MCV 90.1 fL (80-100) 04/04/21 21:13 MCH 28.8 pg (25-34) 04/04/21 21:13 MCHC 31.9 g/dL (32-36) L 04/04/21 21:13 RDW Std Deviation 49.4 fL (36.4-46.3) H 04/04/21 21:13 RDW Coeff of Ryan 15.1 % (11.5-14.5) H 04/04/21 21:13 Plt Count 121 K/uL (130-400) L 04/04/21 21:13 MPV 11.1 fL (7.4-10.4) H 04/04/21 21:13 Immature Gran % (Auto) 0.0 % 04/04/21 21:13 Neut % (Auto) 78.3 % 04/04/21 21:13 Lymph % (Auto) 11.2 % 04/04/21 21:13 Edmunds % (Auto) 9.8 % 04/04/21 21:13 Eos % (Auto) 0.5 % 04/04/21 21:13 Baso % (Auto) 0.2 % 04/04/21 21:13 Neut # (Auto) 3.43 K/uL (1.4-6.5) 04/04/21 21:13 Lymph # (Auto) 0.49 K/uL (1.2-3.4) L 04/04/21 21:13 Edmunds # (Auto) 0.43 K/uL (0.11-0.59) 04/04/21 21:13 Eos # (Auto) 0.02 K/uL (0-0.5) 04/04/21 21:13 Baso # (Auto) 0.01 K/uL (0-0.2) 04/04/21 21:13 Immature Gran # (Auto) 0.00 K/uL (0.00-0.02) 04/04/21 21:13 Polychromasia 1+ 04/04/21 21:13 Ovalocytes 1+ 04/04/21 21:13 VBG pH 7.40 (7.36-7.41) 04/04/21 21:13 VBG pCO2 39 mmHg (38-50) 04/04/21 21:13 VBG pO2 34 mmHg 04/04/21 21:13 VBG HCO3 24 mmol/L 04/04/21 21:13 VBG O2 Saturation < 60.0 % 04/04/21 21:13 VBG Base Excess -0.7 mEq/L 04/04/21 21:13 Barometric Pressure 734.7 mm/Hg 04/04/21 21:13 Sodium 136 mmol/L (136-145) 04/04/21 21:13 Potassium 3.9 mmol/L (3.5-5.1) 04/04/21 21:13 Chloride 106 mmol/L (98-107) 04/04/21 21:13 Carbon Dioxide 25 mmol/L (21-32) 04/04/21 21:13 Anion Gap 6.0 (3-11) 04/04/21 21:13 BUN 20 mg/dl (7-18) H 04/04/21 21:13 Creatinine 1.50 mg/dl (0.6-1.2) H 04/04/21 21:13 Est Cr Clr Drug Dosing 36.4 ml/min 04/04/21 21:13 Est GFR ( Amer) 41.9 ml/min 04/04/21 21:13 Est GFR (Non-Af Amer) 36.2 ml/min 04/04/21 21:13 BUN/Creatinine Ratio 13.5 (10-20) 04/04/21 21:13 Glucose 528 mg/dl (70-99) H* 04/04/21 21:13 POC Glucose 336 mg/dl (70-99) H* 04/05/21 01:32 Calcium 8.9 mg/dl (8.5-10.1) 04/04/21 21:13 Total Bilirubin 1.1 mg/dl (0.2-1) H 04/04/21 21:13 AST 25 U/L (15-37) 04/04/21 21:13 ALT 22 U/L (12-78) 04/04/21 21:13 Alkaline Phosphatase 108 U/L (45-117) 04/04/21 21:13 Ammonia 58.6 umol/L (11-32) H 04/04/21 21:13 Troponin I 0.021 ng/ml (0-0.045) 04/04/21 21:13 Total Protein 6.3 gm/dl (6.4-8.2) L 04/04/21 21:13 Albumin 2.8 gm/dl (3.4-5.0) L 04/04/21 21:13 Globulin 3.5 gm/dl (2.5-4.0) 04/04/21 21:13 Albumin/Globulin Ratio 0.8 (0.9-2) L 04/04/21 21:13 Beta-Hydroxybutyric Acd 0.92 mg/dl (0.2-2.81) 04/04/21 21:13 Urine Color Yellow 04/04/21 21:32 Urine Appearance Clear (Clear) 04/04/21 21:32 Urine pH 6.5 (4.5-7.5) 04/04/21 21:32 Ur Specific Lincoln 1.013 (1.000-1.030) 04/04/21 21:32 Urine Protein Negative (Negative) 04/04/21 21:32 Urine Glucose (UA) 3+ (Negative) H 04/04/21 21:32 Urine Ketones Negative (Negative) 04/04/21 21:32 Urine Blood Negative (Negative) 04/04/21 21:32 Urine Nitrite Negative (Negative) 04/04/21 21:32 Urine Bilirubin Negative (Negative) 04/04/21 21:32 Urine Urobilinogen Negative (Negative) 04/04/21 21:32 Ur Leukocyte Esterase Negative (Negative) 04/04/21 21:32 COVID-19 Eval Order Covid19 at [facility] 04/04/21 23:15 SARS-CoV-2 (PCR) NEGATIVE (Negative) 04/04/21 23:15 Impressions Chest X-Ray 04/04/21 20:40 SINGLE VIEW CHEST CLINICAL HISTORY: Hyperglycemia. FINDINGS: An AP, portable, upright chest radiograph is compared to study dated 07/18/2020. The heart is enlarged. The pulmonary vasculature is noncongested. Chronic interstitial thickening is similar to previous. There is mild bibasilar atelectasis. The lungs and pleural spaces are otherwise clear. No pneumothorax is seen. The skeletal structures are osteopenic. There are healed left-sided rib fractures. A vascular stent projects over the right upper quadrant of the abdomen. IMPRESSION: Cardiomegaly with no active disease in the chest. ACT 112: Negative or not required by law. Electronically signed by: Alvaro Mauro M.D. 04/04/2021 9:08 PM Code Status & VTE Plan Code Status Full code VTE Prophylaxis Plan VTE Prophylaxis will be ordered: Yes PG Care Time/CCT Total # of Minutes Spent Total Time Spent with Patient: Total time spent is greater than 50% in coordination of care (as documented) at patient's floor/unit and/or counseling patient: Coding Level of Care Code 48812 Initial Inpt Care Lvl 3 Diagnoses Hepatic encephalopathy K72.90 Liver cirrhosis secondary to VRAGAS K75.81; K74.60 Hyperglycemia due to type 2 diabetes mellitus E11.65 Hyperammonemia E72.20 Acute kidney injury superimposed on CKD N17.9; N18.9 Hyperlipidemia E78.5 Hypertension I10 SVT (supraventricular tachycardia) I47.1 Aortic stenosis I35.0 Celiac disease K90.0 Esophageal varices I85.00 GERD (gastroesophageal reflux disease) K21.9 Hypothyroidism E03.9 S/P TIPS (transjugular intrahepatic portosystemic shunt) Z95.828
[2021-04-05] MEDS: ALBUMIN 25% 12.5 GM/50 ML VIAL IV STA ×2 (00:03→00:44)
[2021-04-05] MEDS ORDERED: ONDANSETRON INJ 2 MG/ML 2 ML VIAL IV PRN (01:38)
[2021-04-05] MEDS ORDERED: GLUCOSE 40% GEL 15 GM TUBE PO PRN (01:38)
[2021-04-05] MEDS ORDERED: DEXTROSE 50% 50 ML SYRINGE IV PRN (01:38)
[2021-04-05] MEDS ORDERED: GLUCAGON FOR INJ 1 MG VIAL SQ PRN (01:38)
[2021-04-05] MEDS ORDERED: CARBOHYDRATES FOR HYPOGLYCEMIA PO PRN (01:38)
[2021-04-05] MEDS ORDERED: GLUCOSE 10 TABS/TUBE PO PRN (01:38)
[2021-04-05] MEDS ORDERED: ONDANSETRON 4 MG OD TAB PO PRN (02:06)
[2021-04-05] MEDS ORDERED: LACTULOSE SYRUP 20 GM/30 ML UDC PO SCH (02:30)
[2021-04-05] MEDS ORDERED: INSULIN ASPART 100 UNITS/ML 3 ML PEN SC ONE (02:30)
[2021-04-05] MEDS: ALBUMIN 25% 12.5 GM/50 ML VIAL IV SCH ×3 (02:53→04:53)
[2021-04-05] MEDS: INSULIN GLARGINE SOLOSTAR 100 UNITS/ML 3 ML PEN SQ SCH ×3 (03:35→20:21)
[2021-04-05] MEDS: ENOXAPARIN INJ 30 MG/0.3 ML SYR SQ SCH ×3 (03:35→20:21)
[2021-04-05] MEDS: LEVOTHYROXINE SODIUM 50 MCG TABLET PO SCH (03:44)
[2021-04-05 06:28] LABS: Basophils # (auto) 0.01 K/uL (0-0.2); Basophils % (auto) 0.3 %; Eosinophils # (auto) 0.08 K/uL (0-0.5); Eosinophils % (auto) 2.1 %; Hematocrit (blood only) 28.8 % (37-47); Hemoglobin 9.5 g/dL (12.0-16.0); Lymphocytes # (auto) 0.69 K/uL (1.2-3.4); Lymphocytes % (auto) 18.4 %; Mean Corpuscular Hemoglobin 29.3 pg (25-34); Mean Corpuscular Volume 88.9 fL (80-100); Mean Platelet Volume 10.6 fL (7.4-10.4); Monocytes # (auto) 0.37 K/uL (0.11-0.59); Monocytes % (auto) 9.9 %; Neutrophils # (auto) 2.59 K/uL (1.4-6.5); Neutrophils % (auto) 69.3 %; Platelet Count 101 K/uL (130-400); RDW Coefficient of Variation 15.2 % (11.5-14.5); RDW Standard Deviation 49.5 fL (36.4-46.3); Red Blood Count 3.24 M/uL (4.2-5.4); White Blood Count 3.74 K/uL (4.8-10.8)
[2021-04-05 06:43] LABS: Estimated Average Glucose 128 mg/dl; Hemoglobin A1C 6.1 % (4.5-5.6)
[2021-04-05 07:06] LABS: Albumin Level 3.2 gm/dl (3.4-5.0); BUN Creatinine Ratio 14.8 (10-20); Calcium 8.9 mg/dl (8.5-10.1); Creatinine Clr Calc Pharmacy 44.7 ml/min; Est GFR (African American) 53.8 ml/min; Est GFR (Non-African American) 46.5 ml/min; Magnesium 1.6 mg/dl (1.8-2.4); Potassium 3.2 mmol/L (3.5-5.1)
[2021-04-05 07:09] LABS: Albumin Globulin Ratio 1.1 (0.9-2); Bilirubin,Total 1.3 mg/dl (0.2-1); Globulin 2.9 gm/dl (2.5-4.0); Total Protein 6.1 gm/dl (6.4-8.2)
[2021-04-05] MEDS: FUROSEMIDE 40 MG TAB PO SCH (08:21)
[2021-04-05] MEDS: CHOLECALCIFEROL 1,000 UNITS 25 MCG TAB PO SCH (08:21)
[2021-04-05] MEDS: PANTOprazole 40 MG TAB PO SCH (08:21)
[2021-04-05] MEDS: SPIRONOLACTONE 25 MG TAB PO SCH (08:22)
[2021-04-05] MEDS: INSULIN ASPART 100 UNITS/ML 3 ML PEN SC SCH ×4 (08:22→20:21)
[2021-04-05] MEDS: LACTULOSE SYRUP 20 GM/30 ML UDC PO SCH ×2 (08:22→17:16)
[2021-04-05] MEDS: POTASSIUM CHLORIDE CRTAB 20 MEQ TABCR PO SCH (08:22)
[2021-04-05] MEDS: VITAMIN B COMPLEX TAB PO SCH (08:22)
[2021-04-05] MEDS: MULTIVITAMIN TAB PO SCH (08:22)
[2021-04-05] MEDS ORDERED: NON-FORMULARY MEDICATION (Fluoride (Sodium) 1.1 % paste) DT SCH (09:00)
--- NOTE | 2021-04-05 09:34 | Electrocardiogram Report ---
Test Reason : Blood Pressure : / mmHG Vent. Rate : 081 BPM Atrial Rate : 081 BPM P-R Int : 162 ms QRS Dur : 124 ms QT Int : 450 ms P-R-T Axes : 100 062 -21 degrees QTc Int : 522 ms Sinus rhythm with Premature atrial complexes in a pattern of bigeminy Right bundle branch block T wave abnormality, consider inferior ischemia Abnormal ECG No previous ECGs available Confirmed by Carroll White ([id number]) on 04/05/2021 9:33:53 AM Referred By: REFERRED SELF Confirmed By:Rupert White
[2021-04-05] MEDS ORDERED: POTASSIUM CHLORIDE CRTAB 20 MEQ TABCR PO SCH (10:30)
[2021-04-05] MEDS ORDERED: PHARMACY GLYCEMIC MGMT CONSULT PRN (10:50)
[2021-04-05] MEDS: FERROUS SULFATE 325 MG TAB PO SCH (11:37)
[2021-04-05] MEDS: MAGNESIUM OXIDE 400 MG TAB PO SCH (11:37)
--- NOTE | 2021-04-05 13:44 | Hospitalist Progress Note ---
Date of Service April 05, 2021 Assessment & Plan (1) Hepatic encephalopathy: Plan: Hepatic encephalopathy/status post TIPS procedure/hyperammonemia/liver cirrhosis secondary to VARGAS----Patient overall states she feels improved today. She is status post TIPS procedure on 02/03/2021, reports prior to that she had to have therapeutic paracentesis done at least monthly. Ammonia level was 58.6 on admission. Increased to 94.0 today. She had not been able to take her lactulose regularly as directed at home, and has only been taking half a dose a day. Likely was not having daily BMs. Lactulose has been increased to 20gm PO BID from 10mg daily. Follow serial ammonia levels Consult gastroenterology Dr. Anderson. (2) Liver cirrhosis secondary to VARGAS: Plan: Follows with Dr. Still, hepatology, at [facility]. She reports that she had been on the liver transplant list, but was removed, until she can have a TAVR performed. (3) S/P TIPS (transjugular intrahepatic portosystemic shunt): Plan: Surgery took place at [facility] on 02/03/2021. (4) Hyperammonemia: Plan: As above. Follow serially. (5) Hyperglycemia due to type 2 diabetes mellitus: Plan: Glucose upon admission was 528. Patient reports she was told her glucose would be volatile for 1-3 months s/p TIPS. She did receive regular insulin 4 units IV x2 from the ED, with a resultant improvement and Accu-Chek to 336. Have to avoid significant IV fluids, as patient did have an issue with fluid overload while admitted at [facility]. Glucose remains elevated at 268 this morning. Consult pharmacy glycemic management. Hgb A1C 6.1% on 04/05/21. (6) Acute kidney injury superimposed on CKD: Plan: Creatinine 1.50 upon admission, with range 1.10-1.79. ---> Improved to 1.22 today. Follow laboratory serially, again being careful to avoid fluid overload. (7) Hyperlipidemia: Plan: Continue atorvastatin 10 mg daily (8) Hypertension: Plan: Hypertension/SVT/aortic stenosis- BP 147/61 today. Continue furosemide, spironolactone and potassium chloride. Patient reports that she has a pending appointment to for TAVR assessment at [facility] on April 15, 2021. (9) SVT (supraventricular tachycardia): Plan: No recent issues (10) Aortic stenosis: Plan: See above (11) Esophageal varices: Plan: Esophageal varices/GERD- No recent issues with bleeding. Has not required any banding in the past. Pantoprazole 40 mg daily. (12) GERD (gastroesophageal reflux disease): Plan: On omeprazole 40mg daily at home. Switch to pantoprazole 40mg daily while inpatient. (13) Hypothyroidism: Plan: Continue levothyroxine 50 mcg daily. Last TSH was 2.310 on 07/30/20. (14) Celiac disease: Plan: Placed on gluten-free and diabetic diet. (15) Hypokalemia: Plan: Potassium 3.2 this morning. On 40meq daily. Provide extra 20meq today. Recheck in AM. (16) Hypomagnesemia: Plan: Magnesium of 1.6 this AM. Started on magnesium oxide 400mg daily. Recheck in AM. (17) DVT prophylaxis: Plan: Lovenox 30mg SQ q12. Plan: Disposition- med/tele Continued stay pending improvement in ammonia, hyperglycemia, hypokalemia, and hypomagnesemia. Admission and Anticipated Discharge Date Admission Date: April 04, 2021 Subjective 65 year old female admitted with hepatic encephalopathy, hyperglycemia, and hyperammonenemia s/p TIPS procedure for liver cirrhosis secondary to VARGAS. Patient reports she is feeling better this morning. Denies pain, fever, or chills. Denies any BM this morning. States she is voiding without issue. Review of Systems Constitutional: no fever and no chills Eyes: no worsening vision Ear, Nose, Mouth, Throat: no dizziness Respiratory: no dyspnea Cardiovascular: no chest pain Gastrointestinal: + constipation; no abdominal pain, no nausea and no vomiting Genitourinary: no dysuria Physical Exam Physical Exam: Temp Pulse Resp BP Pulse Ox 36.5 C 64 17 147/61 H 99 04/05/21 11:48 04/05/21 11:48 04/05/21 11:48 04/05/21 11:48 04/05/21 11:48 Patient is afebrile. She is hypertensive at 147/61, but is asymptomatic. Constitutional: + thin; no acute distress ENMT: Ears: no hearing impairment Neck: trachea midline Respiratory: normal respiratory effort, lungs clear to auscultation Cardiovascular: Rate/Rhythm: regular rate and regular rhythm Heart Sounds: + murmur (systolic ) Extremities: no edema Gastrointestinal (Abdomen): Inspection/Auscultation: normal bowel sounds Percussion/Palpation: abdomen soft; abdomen nontender Musculoskeletal: Head/Neck/Chest: normocephalic Skin: no rashes, warm and dry Psychiatric: A+Ox3, euthymic affect Lymphatic: no cervical or axillary lymphadenopathy Results & Data Results & Data ([facility]) Vital Signs (Past 12 Hours) Vital Signs Temp Pulse Pulse Resp BP Pulse Ox 04/05/21 11:48 36.5 C 64 17 147/61 H 99 04/05/21 07:36 36.5 C 65 18 132/67 99 04/05/21 07:17 71 04/05/21 01:52 36.5 C 71 20 168/72 H 100 PG Care Time/CCT Total # of Minutes Spent Total Time Spent with Patient: Total time spent is greater than 50% in coordination of care (as documented) at patient's floor/unit and/or counseling patient: Coding Level of Care Code 28887 Subseq Hosp Care Lvl 3 Medical Decision Making High Complexity Diagnoses Hepatic encephalopathy K72.90 Liver cirrhosis secondary to VARGAS K75.81; K74.60 S/P TIPS (transjugular intrahepatic portosystemic shunt) Z95.828 Hyperammonemia E72.20 Hyperglycemia due to type 2 diabetes mellitus E11.65 Acute kidney injury superimposed on CKD N17.9; N18.9 Hyperlipidemia E78.5 Hypertension I10 SVT (supraventricular tachycardia) I47.1 Aortic stenosis I35.0 Esophageal varices I85.00 GERD (gastroesophageal reflux disease) K21.9 Hypothyroidism E03.9 Celiac disease K90.0 Hypokalemia E87.6 Hypomagnesemia E83.42 DVT prophylaxis Z29.9
--- NOTE | 2021-04-05 15:08 | Pharmacy Report ---
Pharmacy Glycemic Short Note 2 - Date of Service April 05, 2021 - Glycemic Short BSG Results (Last 24 hours): 04/04/21 04/04/21 04/04/21 20:01 21:13 22:10 Glucose 528 H* POC Glucose 493 H* 465 H* 04/04/21 04/05/21 04/05/21 23:10 01:32 06:13 Glucose 268 H POC Glucose 370 H* 336 H* 04/05/21 04/05/21 07:29 11:28 Glucose POC Glucose 247 H 250 H OUTPATIENT ANTIDIABETIC REGIMEN: * Lantus 10 units SC BID * Humalog 15 units SC with dinner * HbA1c = 6.1% (04/05/21) ASSESSMENT: * 65 yo F admitted overnight secondary to acute metabolic encephalopathy and hyperglycemia. Pharmacy has been consulted to assist with inpatient glycemic management. * Patient has a history of liver cirrhosis secondary to VARGAS and underwent a TIPS procedure in January 2021. Since then patient had noticed volatile BSGs despite eating sparingly. * Admission BSG was 493 mg/dL. There were no signs of acidosis. Mental confusion could be a result of HHS however. She received two separate 4 unit IV insulin boluses which improved her BSG to 370 mg/dL. Early this AM she was given 10 units of Lantus followed by another 10 units around breakfast. * Lunchtime BSG was elevated at 250 mg/dL * Will tightened Novolog parameters * Adding HS Lantus scale PLAN FOR INPATIENT GLYCEMIC CONTROL: * Basal insulin * Lantus 10 units SC x 2 doses this AM (20 units total) * Lantus 10-20 units SC HS (see eMAR for more details) * Bolus insulin * NovoLog per scale ACHS or Q6hrs while NPO * Goal Range: Low 100 mg/dL - High 150 mg/dL * Correction Factor: 20 mg/dL/unit * Nutritional / Prandial insulin per carb ratio of 1 unit per 7 grams CHO consumed PLAN FOR DISCHARGE: * To be determined
--- NOTE | 2021-04-05 17:08 | Gastrointestinal Consultation ---
Date of Consultation April 05, 2021 Assessment & Plan (1) Hepatic encephalopathy: Continue higher dose of lactulose No evidence of infection but would check to see if there is any ascites to tap as SBP can sometimes cause high blood sugars and encephalopathy. If patient is here wednesday then would have radiology do US and diagnostic tap if any fluid to tap. No obvious GI bleeding. NO obvious renal issues. History of Present Illness Reason for Consultation: hepatic encephalopathy Requesting Physician: Dr Draper Attending Physician: Jb Mc DO History of Present Illness Pt known to me from outpt liver followup. She is s/p TIPS for refractory ascite s which has improved that and is on lactulose post TIPS to help manage hepatic encephalopathy. She was initially considered for liver transplant but with low MELD score and severe she is not on the list at present per hepatology noted 03/31/21. She was recently admitted to [place] for volume overload. Her most recent therapeutic paracenteis done 02/27/2021 showed no evidence of infection. She has been having trouble with elevated blood sugars recently and associated confusion. She was confused yesterday and brought in by family for that. Blood sugars markedly elevated and ammonia 58 (today 94). She states infrequent bms but large one yesterday prior to admit. Lactulose was increase on admit but no bms since admission. Even though ammonia higher today she is clinically back to baseline. CBC Hgb 9.5 today with baselkiine 9.8 and no evidence of GI bleeding. No abd pain. UA is negative an no complaitns to suggest other infecdtion. Cr is 1.2. Allergies Allergy/AdvReac Type Severity Reaction Status Date / Time bacitracin Allergy Mild REDNESS/MONICA Verified 04/04/21 21:36 H neomycin Allergy Mild REDNESS Verified 04/04/21 21:36 AND RASH Home Medications Medication Instructions Recorded Confirmed Type atorvastatin 10 mg tablet 10 mg PO 2XWK tab 05/15/19 04/04/21 History levothyroxine 50 mcg tablet 50 mcg PO QAM tab 05/15/19 04/04/21 History omeprazole 40 mg capsule,delayed 40 mg PO QAM cap 05/15/19 04/04/21 History release biotin 5,000 mcg sublingual tablet 5,000 mcg SL QAM 07/03/19 04/04/21 History calcium carbonate-vitamin D3 600 1 cap PO PM cap 07/03/19 04/04/21 History mg (1,500 mg)-400 unit capsule cholecalciferol (vitamin D3) 50 2,000 units PO QAM 07/03/19 04/04/21 History mcg (2,000 unit) capsule ferrous sulfate 325 mg (65 mg 325 mg PO QAM tab 07/03/19 04/04/21 History iron) tablet multivitamin (Multiple Vitamins) 1 tab PO QAM 07/03/19 04/04/21 History vitamin B complex 1 cap PO QAM 07/03/19 04/04/21 History fluoride (sodium) 1.1 % dental 1 applic DENTAL BID 06/10/20 04/04/21 History paste insulin glargine 100 unit/mL (3 10 unit SUBCUT AMPM ml 07/22/20 04/04/21 History mL) subcutaneous pen (Lantus Solostar U-100 Insulin) insulin lispro 100 unit/mL 15 unit SUBCUT QDD 09/04/20 04/04/21 History subcutaneous pen zinc 50 mg tablet 50 mg PO 3XWK 11/06/20 04/04/21 History lactulose 10 gram/15 mL oral syrup 10 g PO QAM 02/27/21 04/04/21 History ondansetron HCl 4 mg tablet 4 mg PO Q8H PRN 02/27/21 04/04/21 History (Zofran) furosemide 20 mg tablet 40 mg PO QAM 04/04/21 04/04/21 History potassium chloride 10 mEq 40 meq PO QAM 04/04/21 04/04/21 History tablet,extended release spironolactone 25 mg tablet 25 mg PO QAM 04/04/21 04/04/21 History Patient History Medical History Acute kidney injury Anemia Aortic stenosis moderate 2020 Aortic stenosis, mild Basal cell carcinoma of left side of nose Celiac disease CKD (chronic kidney disease) stage 3, GFR 30-59 ml/min Baseline creat 1.1-1.2 per 08/15/19 nephro note Cyst, ovarian Diabetes mellitus, type 2 Diverticulosis Encephalopathy acute pt had a stomach bug that lead to encephalopthy per pt. Esophageal varices no banding GERD (gastroesophageal reflux disease) History of basal cell cancer Hyperlipidemia Hypertension Hypothyroidism Malignant melanoma of skin of right ear Neoplasm of uncertain behavior of appendix Nonalcoholic fatty liver disease Reducible umbilical hernia Stage 3b chronic kidney disease SVT (supraventricular tachycardia) Surgical History (Updated 04/05/21 @ 02:10 by Won Vieira MD) History of adenoidectomy History of bilateral salpingo-oophorectomy (BSO) @ [facility] [place] 12/[place] History of section x2 ; History of colonoscopy with polypectomy History of dilatation and curettage History of esophagogastroduodenoscopy (EGD) 01/02/19 and 01/13/20 History of facial surgery melanoma removal of right side of face by ear History of hysterectomy 1990 History of wisdom tooth extraction 1973 Hx of abdominal surgery stomach nodules 1993 S/P foot surgery, left x3--neuroma removal , , S/P TIPS (transjugular intrahepatic portosystemic shunt) Status post Mohs surgery for basal cell carcinoma remove off nose Family History Grandmother (Maternal) Family history of diabetes mellitus Mother Family history of diabetes mellitus Hypertension Father Hypertension Other No family history of adverse response to anesthesia Social History Smoking Status: Former smoker Tobacco Type: Cigarettes packs per day: 0.75; Years Smoked: 25; Smoking End Date: 1999; Second Hand Exposure: No; Hx Alcohol Use: No Hx Substance Use: No Preferred Language: Ukrainian Communication Ability: Effective Control Panel Tester Required: No Beliefs That Will Affect Care: None Current Living Situation: Spouse Current Living Situation Comment: With and two grown children current occupational status: retired Other Information That Helps Us Care for You: No Feels Safe at Home: Yes Safety Concerns: Feels Safe At This Time Assistive Devices: None Review of Systems Review of Systems: All systems reviewed & are unremarkable except as noted in HPI & below Physical Exam Constitutional: WD/WN, vitals as above Eyes: PERRL, conjunctivae normal, anicteric sclerae ENMT: Ears: no external ear abnormality Neck: normal visual inspection and trachea midline Respiratory: normal respiratory effort, lungs clear to auscultation Cardiovascular: Rate/Rhythm: regular rate Heart Sounds: + murmur Gastrointestinal (Abdomen): pos bs, soft, no guarding nor rebound, no obvious ascies. Musculoskeletal: no cyanosis or clubbing, extremities motor strength 5/5 Skin: no rashes, warm and dry Neurologic: PERRL, EOMI, accommodation nl, no face palsy, no dysarthria Psychiatric: A+Ox3, euthymic affect Results & Data ([facility]) Vital Signs (Past 12 Hours) Vital Signs Temp Pulse Pulse Resp BP Pulse Ox 04/05/21 15:40 36.6 C 73 19 108/58 L 98 04/05/21 15:27 76 04/05/21 11:48 36.5 C 64 17 147/61 H 99 04/05/21 07:36 36.5 C 65 18 132/67 99 04/05/21 07:17 71
[2021-04-05] MEDS: CALCIUM 600MG + VIT D 400 IU TAB PO SCH (20:20)
[2021-04-06] MEDS ORDERED: INSULIN ASPART 100 UNITS/ML 3 ML PEN SC SCH (02:00)
[2021-04-06] MEDS: LEVOTHYROXINE SODIUM 50 MCG TABLET PO SCH (06:07)
[2021-04-06 06:55] LABS: Basophils # (auto) 0.01 K/uL (0-0.2); Basophils % (auto) 0.3 %; Eosinophils # (auto) 0.09 K/uL (0-0.5); Eosinophils % (auto) 2.3 %; Hematocrit (blood only) 31.7 % (37-47); Hemoglobin 10.4 g/dL (12.0-16.0); Immature Granulocytes # (auto) 0.01 K/uL (0.00-0.02); Immature Granulocytes % (auto) 0.3 %; Lymphocytes # (auto) 0.74 K/uL (1.2-3.4); Lymphocytes % (auto) 19.3 %; Mean Corpuscular Hemoglobin 29.1 pg (25-34); Mean Corpuscular Hgb Conc 32.8 g/dL (32-36); Mean Corpuscular Volume 88.8 fL (80-100); Mean Platelet Volume 9.7 fL (7.4-10.4); Monocytes # (auto) 0.33 K/uL (0.11-0.59); Monocytes % (auto) 8.6 %; Neutrophils # (auto) 2.65 K/uL (1.4-6.5); Neutrophils % (auto) 69.2 %; Platelet Count 110 K/uL (130-400); RDW Coefficient of Variation 15.3 % (11.5-14.5); RDW Standard Deviation 49.7 fL (36.4-46.3); Red Blood Count 3.57 M/uL (4.2-5.4); White Blood Count 3.83 K/uL (4.8-10.8)
[2021-04-06 07:30] LABS: Albumin Level 3.1 gm/dl (3.4-5.0); BUN Creatinine Ratio 11.8 (10-20); Bilirubin,Total 1.3 mg/dl (0.2-1); Calcium 9.3 mg/dl (8.5-10.1); Creatinine Clr Calc Pharmacy 39.5 ml/min; Est GFR (African American) 46.8 ml/min; Est GFR (Non-African American) 40.4 ml/min; Globulin 3.2 gm/dl (2.5-4.0); Magnesium 1.9 mg/dl (1.8-2.4); Potassium 3.8 mmol/L (3.5-5.1); Total Protein 6.3 gm/dl (6.4-8.2)
[2021-04-06 07:33] LABS: Platelet Estimate Decreased (Normal)
[2021-04-06] MEDS: FUROSEMIDE 40 MG TAB PO SCH (08:25)
[2021-04-06] MEDS: CHOLECALCIFEROL 1,000 UNITS 25 MCG TAB PO SCH (08:26)
[2021-04-06] MEDS: PANTOprazole 40 MG TAB PO SCH (08:26)
[2021-04-06] MEDS: MAGNESIUM OXIDE 400 MG TAB PO SCH (08:26)
[2021-04-06] MEDS: VITAMIN B COMPLEX TAB PO SCH (08:27)
[2021-04-06] MEDS: POTASSIUM CHLORIDE CRTAB 20 MEQ TABCR PO SCH (08:28)
[2021-04-06] MEDS: SPIRONOLACTONE 25 MG TAB PO SCH (08:28)
[2021-04-06] MEDS: MULTIVITAMIN TAB PO SCH (08:28)
[2021-04-06] MEDS: ENOXAPARIN INJ 30 MG/0.3 ML SYR SQ SCH ×2 (08:29→20:35)
[2021-04-06] MEDS: INSULIN GLARGINE SOLOSTAR 100 UNITS/ML 3 ML PEN SQ SCH ×2 (08:32→20:38)
[2021-04-06] MEDS: LACTULOSE SYRUP 20 GM/30 ML UDC PO SCH ×2 (08:33→17:21)
[2021-04-06] MEDS: INSULIN ASPART 100 UNITS/ML 3 ML PEN SC SCH ×4 (08:37→20:37)
[2021-04-06] MEDS ORDERED: bisacodyL 10 MG SUPP PR STA (11:14)
[2021-04-06] MEDS: FERROUS SULFATE 325 MG TAB PO SCH (11:31)
[2021-04-06] MEDS: POLYETHYLENE (MIRALAX) 17 GM PACK PO SCH (11:48)
--- NOTE | 2021-04-06 12:17 | Hospitalist Progress Note ---
Date of Service April 06, 2021 Assessment & Plan (1) Hepatic encephalopathy: Plan: Hepatic encephalopathy/status post TIPS procedure/hyperammonemia/liver cirrhosis secondary to VARGAS---->Improved. Mentation normal on exam. She is status post TIPS procedure on 02/03/2021, reports prior to that she had to have therapeutic paracentesis done at least monthly. Ammonia levels continue to rise. Now 168.0 this morning. -----> Patient denies any BM since increasing dose of Lactulose to 20mg BID yesterday. -KUB, Dulcolax suppository, and Miralax ordered--->KUB showing non-obstructed bowel gas pattern; patient reports 2 BMs today after suppository, one small and one large Continue to monitor ammonia levels. Consulted gastroenterology Dr. Anderson. Appreciate recs. Recommend u/s guided paracentesis tomorrow. Will provide Rocephin dose today and tomorrow. NPO after midnight. (2) Liver cirrhosis secondary to VARGAS: Plan: Follows with Dr. Still, hepatology, at [facility]. She reports that she had been on the liver transplant list, but was removed, until she can have a TAVR performed. (3) S/P TIPS (transjugular intrahepatic portosystemic shunt): Plan: Surgery took place at [facility] [place] on 02/03/2021. (4) Hyperammonemia: Plan: As above. Follow serially. (5) Hyperglycemia due to type 2 diabetes mellitus: Plan: Glucose upon admission was 528. Patient reports she was told her glucose would be volatile for 1-3 months s/p TIPS. She did receive regular insulin 4 units IV x2 from the ED, with a resultant improvement and Accu-Chek to 336. Have to avoid significant IV fluids, as patient did have an issue with fluid overload while admitted at [facility]. Pharmacy glycemic management placed. Glucose has ranged from 99-273 over the past 24hrs. Hgb A1C 6.1% on 04/05/21. (6) Acute kidney injury superimposed on CKD: Plan: Creatinine 1.50 upon admission, with range 1.10-1.79. ---> 1.37 today. Continue to monitor. Careful to avoid fluid overload. (7) Hyperlipidemia: Plan: Continue atorvastatin 10 mg daily (8) Hypertension: Plan: Hypertension/SVT/aortic stenosis- BP 147/61 today. Continue furosemide, spironolactone and potassium chloride. Patient reports that she has a pending appointment to for TAVR assessment at [facility] on April 15, 2021. (9) SVT (supraventricular tachycardia): Plan: No recent issues (10) Aortic stenosis: Plan: See above (11) Esophageal varices: Plan: Esophageal varices/GERD- No recent issues with bleeding. Has not required any banding in the past. Pantoprazole 40 mg daily. (12) GERD (gastroesophageal reflux disease): Plan: On omeprazole 40mg daily at home. Switch to pantoprazole 40mg daily while inpatient. (13) Hypothyroidism: Plan: Continue levothyroxine 50 mcg daily. Last TSH was 2.310 on 07/30/20. (14) Celiac disease: Plan: Placed on gluten-free and diabetic diet. (15) Hypokalemia: Plan: Potassium 3.2 yesterday. On 40meq daily. Provide extra 20meq yesterday. Now improved to 3.8. Recheck in AM. (16) Hypomagnesemia: Plan: Magnesium of 1.6 yesterday. Started on magnesium oxide 400mg daily yesterday. Improved to 1.9 today. Recheck in AM. (17) DVT prophylaxis: Plan: Lovenox 30mg SQ q12. (18) Hypoalbuminemia: Plan: Albumin 3.1 today. Patient admits to poor diet over the past several months. Will place nutrition consult. Plan: Disposition- med/tele Continued stay pending improvement in ammonia, hyperglycemia Admission and Anticipated Discharge Date Admission Date: April 04, 2021 Subjective Patient reports she is feeling well today. She denies any BM over the past 24hrs since lactulose dosing was increased. Reports her appetite has been poor the last several months. Review of Systems Review of Systems: All systems reviewed & are unremarkable except as noted in Subjective Physical Exam Physical Exam: Temp Pulse Resp BP Pulse Ox 36.6 C 79 18 107/64 100 04/06/21 11:26 04/06/21 11:26 04/06/21 11:26 04/06/21 11:26 04/06/21 11:26 Patient is afebrile. Vital signs stable. Constitutional: + thin; no acute distress ENMT: Ears: no hearing impairment Neck: trachea midline, no thyromegaly Respiratory: normal respiratory effort, lungs clear to auscultation Cardiovascular: Rate/Rhythm: regular rate and regular rhythm Heart Sounds: + murmur (systolic) Vessels: no JVD Extremities: no edema Gastrointestinal (Abdomen): Inspection/Auscultation: normal bowel sounds Percussion/Palpation: abdomen soft; abdomen nontender Skin: no rashes, warm and dry Psychiatric: A+Ox3, euthymic affect Lymphatic: no cervical or axillary lymphadenopathy Results & Data Results & Data ([facility]) Vital Signs (Past 12 Hours) Vital Signs Temp Pulse Resp BP Pulse Ox 04/06/21 11:26 36.6 C 79 18 107/64 100 04/06/21 08:09 36.6 C 60 19 130/62 97 04/06/21 03:00 36.6 C 84 18 111/49 L 98 PG Care Time/CCT Total # of Minutes Spent Total Time Spent with Patient: Total time spent is greater than 50% in coordination of care (as documented) at patient's floor/unit and/or counseling patient: Coding Level of Care Code 20974 Subseq Hosp Care Lvl 3 History Detailed Exam Detailed Diagnoses Hepatic encephalopathy K72.90 Liver cirrhosis secondary to VARGAS K75.81; K74.60 S/P TIPS (transjugular intrahepatic portosystemic shunt) Z95.828 Hyperammonemia E72.20 Hyperglycemia due to type 2 diabetes mellitus E11.65 Acute kidney injury superimposed on CKD N17.9; N18.9 Hyperlipidemia E78.5 Hypertension I10 SVT (supraventricular tachycardia) I47.1 Aortic stenosis I35.0 Esophageal varices I85.00 GERD (gastroesophageal reflux disease) K21.9 Hypothyroidism E03.9 Celiac disease K90.0 Hypokalemia E87.6 Hypomagnesemia E83.42 DVT prophylaxis Z29.9 Hypoalbuminemia E88.09
[2021-04-06] MEDS: cefTRIAXone SODIUM 1,000 MG in DEXTROSE 5% 50 ML IV SCH (12:28)
--- NOTE | 2021-04-06 13:44 | XRay Report ---
KUB CLINICAL HISTORY: Constipation. FINDINGS: An AP supine abdominal radiograph is correlated with abdominal CT dated 05/31/2020. There is a nonobstructed abdominal bowel gas pattern. Mild to moderate fecal retention is noted in the right colon. No evidence of intraperitoneal free air is seen on these supine views. A TIPS catheter is sugg ested in the right upper quadrant. There are no abnormal abdominal calcifications. The skeletal struc tures are osteopenic and appear intact. Lumbosacral spondylosis and scoliosis are noted. The lung bas es are clear as visualized. IMPRESSION: Nonobstructed abdominal bowel gas pattern. Electronically signed by: Alvaro Mauro M.D. 04/06/2021 1:43 PM
--- NOTE | 2021-04-06 16:06 | Gastroenterology Progress Note ---
Date of Service April 06, 2021 Assessment & Plan (1) Hepatic encephalopathy: Plan: Ammonia worse today but patient alert. Continue the lactulose and miralax and monitor ammonia level daily. Ceftriaxone ordered prophylactically for possible SBP and paracentesis ordered tomorrow to look for it. Recommend either lactulose alone or in combination with miralax to have a minimum of one bm daily ascites--minimal if any on exam, see what radiologiest finds tomorrow. constipation--KUB today results mild to moderate fecal retention in right colon, laxatives as above. Admission and Anticipated Discharge Date Admission Date: April 04, 2021 Subjective cc f/u hepatic encephalopathy HPI with patient for H and P. Pt denies abd pain. Had a large and a small bm today post lactulose and miralax. Physical Exam Constitutional: WD/WN, vitals as above Gastrointestinal (Abdomen): normal bowel sounds, soft, nontender, no hepatosplenomegaly Results & Data ([facility]) Vital Signs (Past 12 Hours) Vital Signs Temp Pulse Pulse Resp BP Pulse Ox 04/06/21 15:37 36.4 C L 72 19 113/61 100 04/06/21 15:17 85 04/06/21 11:26 36.6 C 79 18 107/64 100 04/06/21 08:09 36.6 C 60 19 130/62 97 04/06/21 08:00 69
[2021-04-06] MEDS: CALCIUM 600MG + VIT D 400 IU TAB PO SCH (20:35)
[2021-04-07] MEDS: LEVOTHYROXINE SODIUM 50 MCG TABLET PO SCH (06:11)
--- NOTE | 2021-04-07 07:54 | Gastroenterology Progress Note ---
Date of Service April 07, 2021 Assessment & Plan (1) Hepatic encephalopathy: Plan: Ammonia pending but patient alert. Continue the lactulose and miralax and monitor ammonia level daily. Ceftriaxone ordered prophylactically for possible SBP and paracentesis to be completed today. Recommend either lactulose alone or in combination with miralax to have a minimum of one bm daily ascites--minimal if any on exam, see what radiologist finds today constipation--continue laxatives as above. Please refer to supervising physician addendum for further recommendations. Admission and Anticipated Discharge Date Admission Date: April 04, 2021 Supervising Physician Co-Signing Physician Notes I have seen and examined the patient. I agree with note above by EDILBERTO Ochoa except as noted below. HPI with patient for H and P. Pt awake and alert. No abd pain. No stool since yesterday pm. No bloody nor black stools. US of abdomen trace ascites--nothign to tap. PE Abdomen pos bs, soft no guarding nor rebound A/P Hepatic encephalopahty--ammonia better but not as expected. Increas lactulose to 40 gm qid and DC miralax. Titrate bms to 3-5 per day. ascites--trace on us so not at risk for SBP with small amount like that. Subjective Patient awake, alert, pleasant, and oriented this morning. Reports she slept well overnight. No confusion last night per nursing. Patient denies abdominal pain, nausea, or vomiting. NPO except a few ice chips. Reports moving bowels yesterday evening and this morning. No blood or melena noted in stools. Review of Systems Review of Systems: All systems reviewed & are unremarkable except as noted in HPI & below Physical Exam Constitutional: WD/WN, vitals as above Gastrointestinal (Abdomen): normal bowel sounds, soft, nontender, no hepatosplenomegaly Results & Data ([facility]) Vital Signs (Past 12 Hours) Vital Signs Temp Pulse Pulse Resp BP Pulse Ox 04/07/21 04:00 36.7 C 81 20 120/56 L 97 04/06/21 23:11 36.6 C 75 18 124/54 L 97 04/06/21 22:20 87 04/06/21 19:57 36.7 C 78 18 111/57 L 99 Laboratory Results - last 24 hr 04/06/21 04/06/21 04/06/21 11:20 16:47 20:30 POC Glucose 273 H 197 H 158 H 04/07/21 07:43 POC Glucose 145 H Laboratory Results - last 24 hr 04/06/21 04/06/21 04/06/21 11:20 16:47 20:30 WBC RBC Hgb Hct MCV MCH MCHC RDW Std Deviation RDW Coeff of Ryan Plt Count MPV Immature Gran % (Auto) Neut % (Auto) Lymph % (Auto) Ness % (Auto) Eos % (Auto) Baso % (Auto) Neut # (Auto) Lymph # (Auto) Ness # (Auto) Eos # (Auto) Baso # (Auto) Immature Gran # (Auto) Sodium Potassium Chloride Carbon Dioxide Anion Gap BUN Creatinine Est Cr Clr Drug Dosing Est GFR ( Amer) Est GFR (Non-Af Amer) BUN/Creatinine Ratio Glucose POC Glucose 273 H 197 H 158 H Calcium Magnesium Total Bilirubin AST ALT Alkaline Phosphatase Ammonia Total Protein Albumin Globulin Albumin/Globulin Ratio 04/07/21 04/07/21 04/07/21 07:43 07:44 07:44 WBC 3.37 L RBC 3.48 L Hgb 10.2 L Hct 31.2 L MCV 89.7 MCH 29.3 MCHC 32.7 RDW Std Deviation 50.3 H RDW Coeff of Ryan 15.3 H Plt Count 107 L MPV 10.4 Immature Gran % (Auto) 0.0 Neut % (Auto) 69.4 Lymph % (Auto) 17.2 Ness % (Auto) 11.3 Eos % (Auto) 1.8 Baso % (Auto) 0.3 Neut # (Auto) 2.34 Lymph # (Auto) 0.58 L Ness # (Auto) 0.38 Eos # (Auto) 0.06 Baso # (Auto) 0.01 Immature Gran # (Auto) 0.00 Sodium Pending Potassium Pending Chloride Pending Carbon Dioxide Pending Anion Gap Pending BUN Pending Creatinine Pending Est Cr Clr Drug Dosing Pending Est GFR ( Amer) Pending Est GFR (Non-Af Amer) Pending BUN/Creatinine Ratio Pending Glucose Pending POC Glucose 145 H Calcium Pending Magnesium Pending Total Bilirubin Pending AST Pending ALT Pending Alkaline Phosphatase Pending Ammonia Total Protein Pending Albumin Pending Globulin Pending Albumin/Globulin Ratio Pending 04/07/21 07:48 WBC RBC Hgb Hct MCV MCH MCHC RDW Std Deviation RDW Coeff of Ryan Plt Count MPV Immature Gran % (Auto) Neut % (Auto) Lymph % (Auto) Ness % (Auto) Eos % (Auto) Baso % (Auto) Neut # (Auto) Lymph # (Auto) Ness # (Auto) Eos # (Auto) Baso # (Auto) Immature Gran # (Auto) Sodium Potassium Chloride Carbon Dioxide Anion Gap BUN Creatinine Est Cr Clr Drug Dosing Est GFR ( Amer) Est GFR (Non-Af Amer) BUN/Creatinine Ratio Glucose POC Glucose Calcium Magnesium Total Bilirubin AST ALT Alkaline Phosphatase Ammonia Pending Total Protein Albumin Globulin Albumin/Globulin Ratio
[2021-04-07] MEDS: VITAMIN B COMPLEX TAB PO SCH (07:58)
[2021-04-07] MEDS: ENOXAPARIN INJ 30 MG/0.3 ML SYR SQ SCH ×2 (07:58→20:28)
[2021-04-07] MEDS: POTASSIUM CHLORIDE CRTAB 20 MEQ TABCR PO SCH (07:58)
[2021-04-07] MEDS: CHOLECALCIFEROL 1,000 UNITS 25 MCG TAB PO SCH (07:58)
[2021-04-07] MEDS: SPIRONOLACTONE 25 MG TAB PO SCH (07:59)
[2021-04-07] MEDS: MAGNESIUM OXIDE 400 MG TAB PO SCH (07:59)
[2021-04-07] MEDS: FUROSEMIDE 40 MG TAB PO SCH (07:59)
[2021-04-07] MEDS: MULTIVITAMIN TAB PO SCH (07:59)
[2021-04-07] MEDS: PANTOprazole 40 MG TAB PO SCH (07:59)
[2021-04-07] MEDS: INSULIN ASPART 100 UNITS/ML 3 ML PEN SC SCH ×4 (08:00→20:27)
[2021-04-07] MEDS: INSULIN GLARGINE SOLOSTAR 100 UNITS/ML 3 ML PEN SQ SCH ×2 (08:01→20:29)
[2021-04-07 08:05] LABS: Basophils # (auto) 0.01 K/uL (0-0.2); Basophils % (auto) 0.3 %; Eosinophils # (auto) 0.06 K/uL (0-0.5); Eosinophils % (auto) 1.8 %; Hematocrit (blood only) 31.2 % (37-47); Hemoglobin 10.2 g/dL (12.0-16.0); Lymphocytes # (auto) 0.58 K/uL (1.2-3.4); Lymphocytes % (auto) 17.2 %; Mean Corpuscular Hemoglobin 29.3 pg (25-34); Mean Corpuscular Hgb Conc 32.7 g/dL (32-36); Mean Corpuscular Volume 89.7 fL (80-100); Mean Platelet Volume 10.4 fL (7.4-10.4); Monocytes # (auto) 0.38 K/uL (0.11-0.59); Monocytes % (auto) 11.3 %; Neutrophils # (auto) 2.34 K/uL (1.4-6.5); Neutrophils % (auto) 69.4 %; Platelet Count 107 K/uL (130-400); RDW Coefficient of Variation 15.3 % (11.5-14.5); RDW Standard Deviation 50.3 fL (36.4-46.3); Red Blood Count 3.48 M/uL (4.2-5.4); White Blood Count 3.37 K/uL (4.8-10.8)
[2021-04-07 08:38] LABS: Albumin Level 2.8 gm/dl (3.4-5.0); BUN Creatinine Ratio 13.4 (10-20); Calcium 9.6 mg/dl (8.5-10.1); Creatinine Clr Calc Pharmacy 35.4 ml/min; Est GFR (African American) 41.6 ml/min; Est GFR (Non-African American) 35.9 ml/min; Magnesium 1.9 mg/dl (1.8-2.4); Potassium 3.9 mmol/L (3.5-5.1)
[2021-04-07 08:40] LABS: Albumin Globulin Ratio 0.8 (0.9-2); Bilirubin,Total 1.2 mg/dl (0.2-1); Globulin 3.4 gm/dl (2.5-4.0); Total Protein 6.2 gm/dl (6.4-8.2)
[2021-04-07 09:00] LABS: Thyroid Stimulating Hormone 0.397 uIu/ml (0.300-4.500)
[2021-04-07] MEDS ORDERED: ATORVASTATIN 10 MG TAB PO SCH (09:00)
[2021-04-07] MEDS ORDERED: ZINC SULFATE 220 MG CAPSULE PO SCH (09:00)
--- NOTE | 2021-04-07 10:52 | Pharmacy Report ---
Pharmacy Glycemic Short Note 2 - Date of Service April 07, 2021 - Glycemic Short BSG Results (Last 24 hours): 04/06/21 04/06/21 04/06/21 11:20 16:47 20:30 Glucose POC Glucose 273 H 197 H 158 H 04/07/21 04/07/21 07:43 07:44 Glucose 127 H POC Glucose 145 H OUTPATIENT ANTIDIABETIC REGIMEN: * Lantus 10 units SC BID * Humalog 15 units SC with dinner * HbA1c = 6.1% (04/05/21) ASSESSMENT: 04/06 * Pt has received 49 units of insulin over the past 24hrs * 20 units of basal with Lantus * 29 units of bolus with NovoLog * BSGs [phone] mg/dl * AM fasting BSG slightly elevated at 145 mg/dl. Pt NPO for paracentesis procedure, therefore will not increase at this time. Likely true basal needs ~ 25units/day * No changes needed to CF/CR since NPO 04/05 * 65 yo F admitted overnight secondary to acute metabolic encephalopathy and hyperglycemia. Pharmacy has been consulted to assist with inpatient glycemic management. * Patient has a history of liver cirrhosis secondary to VARGAS and underwent a TIPS procedure in January 2021. Since then patient had noticed volatile BSGs despite eating sparingly. * Admission BSG was 493 mg/dL. There were no signs of acidosis. Mental confusion could be a result of HHS however. She received two separate 4 unit IV insulin boluses which improved her BSG to 370 mg/dL. Early this AM she was given 10 units of Lantus followed by another 10 units around breakfast. * Lunchtime BSG was elevated at 250 mg/dL * Will tightened Novolog parameters * Adding HS Lantus scale PLAN FOR INPATIENT GLYCEMIC CONTROL: * Basal insulin: no change * Lantus 10-15 units SC BID (see eMAR for more details) * Bolus insulin: no change * NovoLog per scale ACHS or Q6hrs while NPO * Goal Range: Low 100 mg/dL - High 150 mg/dL * Correction Factor: 20 mg/dL/unit * Nutritional / Prandial insulin per carb ratio of 1 unit per 7 grams CHO consumed PLAN FOR DISCHARGE: * A1c is in goal range but likely unreliable secondary to cirrhosis. Best to determine changes to outpatient regimen based on outpatient BSGs. Will defer to outpatient provider if changes need made.
[2021-04-07] MEDS: cefTRIAXone SODIUM 1,000 MG in DEXTROSE 5% 50 ML IV SCH (11:29)
[2021-04-07] MEDS: FERROUS SULFATE 325 MG TAB PO SCH (11:29)
[2021-04-07] MEDS: POLYETHYLENE (MIRALAX) 17 GM PACK PO SCH (11:29)
[2021-04-07] MEDS: LACTULOSE SYRUP 20 GM/30 ML UDC PO SCH ×3 (11:29→20:29)
--- NOTE | 2021-04-07 15:02 | Ultrasound Report ---
US abdomen ltd ascites CLINICAL HISTORY: 65 years-old Female presenting with VARGAS cirrhosis. TECHNIQUE: Real-time grayscale ultrasound imaging of the upper abdomen was performed for a focused ev aluation at the site of clinical concern. COMPARISON: February 27, 2021 FINDINGS: Trace amount of fluid is seen around the liver. Visualized portion of the liver parenchyma shows lobulated contour which could is seen in liver since cirrhosis. IMPRESSION: 1. Trace amount of free fluid is seen around the liver. ACT 112: Negative or not required by law. Electronically signed by: Cori Fox DO 04/07/2021 3:00 PM
[2021-04-07] MEDS: CALCIUM 600MG + VIT D 400 IU TAB PO SCH (20:29)
--- NOTE | 2021-04-07 20:53 | Hospitalist Progress Note ---
Date of Service April 07, 2021 Assessment & Plan (1) Hepatic encephalopathy: Plan: clinically improved despite the elevated ammonia levels of 100-150 last 24 hours. regardless she is a/o x 3, no asterixis, etc. cont lactulose - shoot for 2-3 BMs/day at minimum. titrate as needed. we discussed rifaximin - $1000/month for them - they cannot afford. thus, agree with GI to continue lactulose with miralax for optimal stooling. repeat ammonia in am. (2) Liver cirrhosis secondary to VARGAS: Plan: Follows with Dr. Still, hepatology, at [facility]. She reports that she had been on the liver transplant list, but was removed from such due to need for TAVR procedure for severe . Pt and don't understand why she had to be removed from list. (3) S/P TIPS (transjugular intrahepatic portosystemic shunt): Plan: Surgery took place at [facility] on 02/03/2021. (4) Hyperglycemia due to type 2 diabetes mellitus: Plan: a1c 6.1% which doesn't correspond with her actual BSGs at home/here. suspect anemia from cirrhosis making the a1c spurious. BSGs improved. pharmacy managing. appreciate their help. (5) Acute kidney injury superimposed on CKD: Plan: Cr at baseline today BMP in am baseline CrCL c/w CKD stage 3 (6) Hyperlipidemia: Plan: Continue atorvastatin 10 mg daily (7) Hypertension: Plan: controlled (8) SVT (supraventricular tachycardia): Plan: NSR on monitor (9) Aortic stenosis: Plan: See above severe needs TAVR compensated from CHF standpoint (10) Esophageal varices: Plan: Esophageal varices/GERD- No recent issues with bleeding Has not required any banding in the past Continue PPI (11) GERD (gastroesophageal reflux disease): Plan: PPI (12) Hypothyroidism: Plan: Continue levothyroxine 50 mcg daily TSH wnl this admission (13) Celiac disease: Plan: GF diet she is trying to comply w/ the diet could be contributing to weight loss (cirrhosis too could be contributing to weight loss) could check a TTG and if high then she is not compliant w/ diet (14) Pancytopenia: Plan: 2nd cirrhosis stable cbc am Plan: can likely d/c tomorrow if ammonia level stable and mentation remains stable updated at bedside nutrition consult to help w/ meal planning and helping with protein in diet Admission and Anticipated Discharge Date Admission Date: April 04, 2021 Subjective patient resting comfortably during the visit. was about to eat her meal. in chair at bedside. feels "much better" than when she first arrived. mentation clear. agrees mentation is much improved. only 1 BM since admission. ambulating fine. Review of Systems Constitutional: no fever and no chills Respiratory: no cough and no dyspnea Cardiovascular: no chest pain Gastrointestinal: no abdominal pain, no nausea and no vomiting Physical Exam Physical Exam: gen - thin, NAD, a/o x 3 skin - no rash heart - /6 holosystolic murmur RUSB/apex, s2 present but hard to hear; s1; RRR lungs - CTA b/l abd - soft NT ND BS+ ext - no edema neuro - no asterixis Results & Data Results & Data ([facility]) Vital Signs (Past 12 Hours) Vital Signs Temp Pulse Resp BP Pulse Ox 04/07/21 19:00 36.7 C 90 18 100/47 L 97 04/07/21 15:31 36.4 C L 74 17 103/56 L 99 04/07/21 11:09 36.8 C 73 18 107/60 98 Laboratory Results Laboratory Results - last 24 hr 04/07/21 04/07/21 04/07/21 07:43 07:44 07:44 WBC 3.37 L RBC 3.48 L Hgb 10.2 L Hct 31.2 L MCV 89.7 MCH 29.3 MCHC 32.7 RDW Std Deviation 50.3 H RDW Coeff of Ryan 15.3 H Plt Count 107 L MPV 10.4 Immature Gran % (Auto) 0.0 Neut % (Auto) 69.4 Lymph % (Auto) 17.2 [place] % (Auto) 11.3 Eos % (Auto) 1.8 Baso % (Auto) 0.3 Neut # (Auto) 2.34 Lymph # (Auto) 0.58 L [place] # (Auto) 0.38 Eos # (Auto) 0.06 Baso # (Auto) 0.01 Immature Gran # (Auto) 0.00 Sodium 138 Potassium 3.9 Chloride 108 H Carbon Dioxide 24 Anion Gap 7.0 BUN 20 H Creatinine 1.51 H Est Cr Clr Drug Dosing 35.4 Est GFR ( Amer) 41.6 Est GFR (Non-Af Amer) 35.9 BUN/Creatinine Ratio 13.4 Glucose 127 H POC Glucose 145 H Calcium 9.6 Magnesium 1.9 Total Bilirubin 1.2 H AST 24 ALT 19 Alkaline Phosphatase 99 Ammonia Total Protein 6.2 L Albumin 2.8 L Globulin 3.4 Albumin/Globulin Ratio 0.8 L TSH 0.397 04/07/21 04/07/21 04/07/21 07:48 11:38 16:43 WBC RBC Hgb Hct MCV MCH MCHC RDW Std Deviation RDW Coeff of Ryan Plt Count MPV Immature Gran % (Auto) Neut % (Auto) Lymph % (Auto) [place] % (Auto) Eos % (Auto) Baso % (Auto) Neut # (Auto) Lymph # (Auto) [place] # (Auto) Eos # (Auto) Baso # (Auto) Immature Gran # (Auto) Sodium Potassium Chloride Carbon Dioxide Anion Gap BUN Creatinine Est Cr Clr Drug Dosing Est GFR ( Amer) Est GFR (Non-Af Amer) BUN/Creatinine Ratio Glucose POC Glucose 178 H 282 H Calcium Magnesium Total Bilirubin AST ALT Alkaline Phosphatase Ammonia 101.1 H Total Protein Albumin Globulin Albumin/Globulin Ratio TSH 04/07/21 20:19 WBC RBC Hgb Hct MCV MCH MCHC RDW Std Deviation RDW Coeff of Ryna Plt Count MPV Immature Gran % (Auto) Neut % (Auto) Lymph % (Auto) [place] % (Auto) Eos % (Auto) Baso % (Auto) Neut # (Auto) Lymph # (Auto) [place] # (Auto) Eos # (Auto) Baso # (Auto) Immature Gran # (Auto) Sodium Potassium Chloride Carbon Dioxide Anion Gap BUN Creatinine Est Cr Clr Drug Dosing Est GFR ( Amer) Est GFR (Non-Af Amer) BUN/Creatinine Ratio Glucose POC Glucose 129 H Calcium Magnesium Total Bilirubin AST ALT Alkaline Phosphatase Ammonia Total Protein Albumin Globulin Albumin/Globulin Ratio TSH PG Care Time/CCT Total # of Minutes Spent Total Time Spent with Patient: Total time spent is greater than 50% in coordination of care (as documented) at patient's floor/unit and/or counseling patient: Coding Level of Care Code 99259 Subseq Hosp Care Lvl 2 Diagnoses Hepatic encephalopathy K72.90 Liver cirrhosis secondary to VARGAS K75.81; K74.60 S/P TIPS (transjugular intrahepatic portosystemic shunt) Z95.828 Hyperglycemia due to type 2 diabetes mellitus E11.65 Acute kidney injury superimposed on CKD N17.9; N18.9 Hyperlipidemia E78.5 Hypertension I10 SVT (supraventricular tachycardia) I47.1 Aortic stenosis I35.0 Esophageal varices I85.00 GERD (gastroesophageal reflux disease) K21.9 Hypothyroidism E03.9 Celiac disease K90.0 Pancytopenia D61.818
[2021-04-08] MEDS: LEVOTHYROXINE SODIUM 50 MCG TABLET PO SCH (06:10)
[2021-04-08 07:24] LABS: Basophils # (auto) 0.01 K/uL (0-0.2); Basophils % (auto) 0.3 %; Hematocrit (blood only) 30.4 % (37-47); Hemoglobin 9.9 g/dL (12.0-16.0); Immature Granulocytes # (auto) 0.01 K/uL (0.00-0.02); Immature Granulocytes % (auto) 0.3 %; Lymphocytes # (auto) 0.66 K/uL (1.2-3.4); Lymphocytes % (auto) 19.9 %; Mean Corpuscular Hemoglobin 29.4 pg (25-34); Mean Corpuscular Hgb Conc 32.6 g/dL (32-36); Mean Corpuscular Volume 90.2 fL (80-100); Monocytes # (auto) 0.36 K/uL (0.11-0.59); Monocytes % (auto) 10.8 %; Neutrophils # (auto) 2.18 K/uL (1.4-6.5); Neutrophils % (auto) 65.7 %; Platelet Count 111 K/uL (130-400); RDW Coefficient of Variation 15.4 % (11.5-14.5); Red Blood Count 3.37 M/uL (4.2-5.4); White Blood Count 3.32 K/uL (4.8-10.8)
[2021-04-08] MEDS: ENOXAPARIN INJ 30 MG/0.3 ML SYR SQ SCH (07:36)
[2021-04-08] MEDS: CHOLECALCIFEROL 1,000 UNITS 25 MCG TAB PO SCH (07:37)
[2021-04-08] MEDS: POTASSIUM CHLORIDE CRTAB 20 MEQ TABCR PO SCH (07:37)
[2021-04-08] MEDS: FUROSEMIDE 40 MG TAB PO SCH (07:37)
[2021-04-08] MEDS: LACTULOSE SYRUP 20 GM/30 ML UDC PO SCH ×2 (07:37→12:33)
[2021-04-08] MEDS: MULTIVITAMIN TAB PO SCH (07:37)
[2021-04-08] MEDS: VITAMIN B COMPLEX TAB PO SCH (07:37)
[2021-04-08] MEDS: PANTOprazole 40 MG TAB PO SCH (07:37)
[2021-04-08] MEDS: SPIRONOLACTONE 25 MG TAB PO SCH (07:37)
[2021-04-08] MEDS: MAGNESIUM OXIDE 400 MG TAB PO SCH (07:37)
--- NOTE | 2021-04-08 07:43 | Gastroenterology Progress Note ---
Date of Service April 08, 2021 Assessment & Plan (1) Hepatic encephalopathy: Plan: Ammonia 42.0 this morning. Continue the lactulose and miralax. Monitor ammonia daily while inpatient. Trace ascites noted on ultrasound abdomen yesterday so paracentesis was not performed. Recommend either lactulose alone or in combination with miralax to have 3-5 bowel movements daily. ascites--minimal if any on exam, see what radiologist finds today constipation--continue laxatives as above. Please refer to supervising physician addendum for further recommendations. Admission and Anticipated Discharge Date Admission Date: April 04, 2021 Supervising Physician Co-Signing Physician Notes Pt discharged before my rouonds today so patient not seen. Subjective Patient awake, alert, pleasant, and oriented this morning. Reports she slept well overnight. No confusion last night per nursing. Patient denies abdominal pain, nausea, or vomiting. Tolerating po diet well. Reports bowels are moving well. No blood or melena noted in stools. Review of Systems Review of Systems: All systems reviewed & are unremarkable except as noted in HPI & below Physical Exam Constitutional: WD/WN, vitals as above Gastrointestinal (Abdomen): normal bowel sounds, soft, nontender, no hepatosplenomegaly Results & Data ([facility]) Vital Signs (Past 12 Hours) Vital Signs Temp Pulse Pulse Pulse Resp BP BP 04/08/21 07:14 36.7 C 74 17 130/70 04/08/21 02:27 69 04/07/21 23:48 36.5 C 80 18 124/61 Pulse Ox 04/08/21 07:14 97 04/08/21 02:27 04/07/21 23:48 99 Laboratory Results - last 24 hr 04/07/21 04/07/21 04/07/21 07:44 07:48 11:38 WBC RBC Hgb Hct MCV MCH MCHC RDW Std Deviation RDW Coeff of Ryan Plt Count MPV Immature Gran % (Auto) Neut % (Auto) Lymph % (Auto) [place] % (Auto) Eos % (Auto) Baso % (Auto) Neut # (Auto) Lymph # (Auto) [place] # (Auto) Eos # (Auto) Baso # (Auto) Immature Gran # (Auto) Ovalocytes Sodium 138 Potassium 3.9 Chloride 108 H Carbon Dioxide 24 Anion Gap 7.0 BUN 20 H Creatinine 1.51 H Est Cr Clr Drug Dosing 35.4 Est GFR ( Amer) 41.6 Est GFR (Non-Af Amer) 35.9 BUN/Creatinine Ratio 13.4 Glucose 127 H POC Glucose 178 H Calcium 9.6 Magnesium 1.9 Total Bilirubin 1.2 H AST 24 ALT 19 Alkaline Phosphatase 99 Ammonia 101.1 H Total Protein 6.2 L Albumin 2.8 L Globulin 3.4 Albumin/Globulin Ratio 0.8 L TSH 0.397 04/07/21 04/07/21 04/08/21 16:43 20:19 07:11 WBC 3.32 L RBC 3.37 L Hgb 9.9 L Hct 30.4 L MCV 90.2 MCH 29.4 MCHC 32.6 RDW Std Deviation 51.0 H RDW Coeff of Ryan 15.4 H Plt Count 111 L MPV 11.0 H Immature Gran % (Auto) 0.3 Neut % (Auto) 65.7 Lymph % (Auto) 19.9 [place] % (Auto) 10.8 Eos % (Auto) 3.0 Baso % (Auto) 0.3 Neut # (Auto) 2.18 Lymph # (Auto) 0.66 L [place] # (Auto) 0.36 Eos # (Auto) 0.10 Baso # (Auto) 0.01 Immature Gran # (Auto) 0.01 Ovalocytes 1+ Sodium Potassium Chloride Carbon Dioxide Anion Gap BUN Creatinine Est Cr Clr Drug Dosing Est GFR ( Amer) Est GFR (Non-Af Amer) BUN/Creatinine Ratio Glucose POC Glucose 282 H 129 H Calcium Magnesium Total Bilirubin AST ALT Alkaline Phosphatase Ammonia Total Protein Albumin Globulin Albumin/Globulin Ratio TSH 04/08/21 04/08/21 04/08/21 07:11 07:13 07:59 WBC RBC Hgb Hct MCV MCH MCHC RDW Std Deviation RDW Coeff of Ryan Plt Count MPV Immature Gran % (Auto) Neut % (Auto) Lymph % (Auto) [place] % (Auto) Eos % (Auto) Baso % (Auto) Neut # (Auto) Lymph # (Auto) [place] # (Auto) Eos # (Auto) Baso # (Auto) Immature Gran # (Auto) Ovalocytes Sodium 138 Potassium 3.5 Chloride 109 H Carbon Dioxide 21 Anion Gap 8.0 BUN 25 H Creatinine 1.46 H Est Cr Clr Drug Dosing 36.0 Est GFR ( Amer) 43.3 Est GFR (Non-Af Amer) 37.4 BUN/Creatinine Ratio 17.3 Glucose 154 H POC Glucose 165 H Calcium 9.3 Magnesium Total Bilirubin 0.9 AST 31 ALT 22 Alkaline Phosphatase 99 Ammonia 42.0 H Total Protein 6.3 L Albumin 3.0 L Globulin 3.3 Albumin/Globulin Ratio 0.9 TSH
[2021-04-08 07:53] LABS: BUN Creatinine Ratio 17.3 (10-20); Calcium 9.3 mg/dl (8.5-10.1); Est GFR (African American) 43.3 ml/min; Est GFR (Non-African American) 37.4 ml/min; Potassium 3.5 mmol/L (3.5-5.1)
[2021-04-08 07:56] LABS: Albumin Globulin Ratio 0.9 (0.9-2); Bilirubin,Total 0.9 mg/dl (0.2-1); Globulin 3.3 gm/dl (2.5-4.0); Total Protein 6.3 gm/dl (6.4-8.2)
[2021-04-08 08:01] LABS: Ovalocytes 1+
[2021-04-08] MEDS: INSULIN ASPART 100 UNITS/ML 3 ML PEN SC SCH ×2 (08:25→12:26)
[2021-04-08] MEDS: INSULIN GLARGINE SOLOSTAR 100 UNITS/ML 3 ML PEN SQ SCH (08:26)
[2021-04-08] MEDS: FERROUS SULFATE 325 MG TAB PO SCH (12:25)
--- NOTE | 2021-04-08 13:10 | Discharge Summary ---
Date of Service date of admission - April 04, 2021 date of discharge - April 08, 2021 Admission HPI Per Admitting Provider The patient is a 65-year-old female with a past medical history including radial head fracture, liver cirrhosis secondary to VARGAS, internal hemorrhoids, diabetes mellitus, acute hyperglycemia, hyperammonemia, ZAY on CKD stage IIIb, hyperlipidemia, hypertension, SVT, aortic stenosis and status post TIPS procedure on 02/03/2021. Patient reports that she is to be seen by physicians at [facility] for possible TAVR in the near future, which needs to be done before she can return to the liver transplant list. She follows with hepatology Dr. Still at [facility], Dr. Anderson from gastroenterology locally at [facility], and Dr. White from [facility] cardiology. She reports that she has been taking lactulose half a dose daily, but there are several days that she may not have a bowel movement. Patient reports that she had been having regular ultrasound-guided paracentesis, but has not had to have any since the TIPS procedure. She did receive regular insulin 4 units IV x2, with blood sugar decrease from 528-336, and seemed to have significantly improved mentation as noted by patient and her . Pertinent laboratories: Hemoglobin 10.5, platelets 121, glucose 528, creatinine 1.50, ammonia level 58.6, albumin 2.8 and COVID-19 negative. Principal Diagnosis 1. hepatic encephalopathy - resolved 2. hyperglycemia - 2nd to uncontrolled DM, improved Discharge Exam Gen: NAD, a/o x 3 Eyes: nonicteric Neck: no JVD Heart: RRR, s1 s2, 2-3/6 holosystolic murmur RUSB/apex Lungs: CTA b/l Abd: soft, NT, ND, BS+, no hepatomegaly Ext: no edema, pulses 2+ b/l Neuro: no asterixis Psych: a/o x 3 Discharge Data Allergies Allergy/AdvReac Type Severity Reaction Status Date / Time bacitracin Allergy Mild REDNESS/MONICA Verified 04/04/21 21:36 H neomycin Allergy Mild REDNESS Verified 04/04/21 21:36 AND RASH gluten Allergy Verified 04/08/21 11:52 Consultations [facility] Gastroenterology Nutrition Ordered Studies 04/07/21 07:44 US abdomen ltd ascites - not enough ascites present for paracentesis. Hospital Course (1) Hepatic encephalopathy: Peak ammonia level was 168 during the visit. She needed aggressive use of lactulose to show clinical and biochemical improvement. At discharge her ammonia level was <50. She was a/o x 3, she had no asterixis, etc. She will continue lactulose and titrate such for a minimum of 3 BMs/day. She will start with lactulose 60ml BID at discharge. (2) Liver cirrhosis secondary to VARGAS: Follows with Dr. Still, hepatology, at [facility]. She reports that she had been on the liver transplant list, but was removed from such due to need for TAVR procedure for severe . (3) S/P TIPS (transjugular intrahepatic portosystemic shunt): Surgery took place at [facility] on 02/03/2021. (4) Hyperglycemia due to type 2 diabetes mellitus: Hba1c was 6.1% which doesn't correspond with her actual BSGs at home. Suspect anemia from cirrhosis making the a1c spurious. Pharmacy provided glycemic recommendations throughout her stay and BSGs were controlled at time of discharge. Insulin recommendations at discharge - * lantus 10 units BID * humalog - * 5 units with breakfast * 8 units with lunch * 10 units with dinner (5) Acute kidney injury superimposed on CKD: Peak Cr 1.5 Cr baseline 1.2 to 1.3 Baseline CrCL c/w CKD stage 3 (6) Hyperlipidemia: Continue atorvastatin 10 mg daily (7) Hypertension: controlled throughout the stay (8) SVT (supraventricular tachycardia): NSR on monitor during the stay (9) Aortic stenosis: severe needs TAVR compensated from CHF standpoint throughout the visit she has scheduled follow-up with [facility] in the near- future to discuss timing of TAVR (10) Esophageal varices: Esophageal varices/GERD- No recent issues with bleeding Has not required any banding in the past Continue PPI (11) GERD (gastroesophageal reflux disease): PPI (12) Hypothyroidism: Continue levothyroxine 50 mcg daily TSH wnl this admission (13) Celiac disease: GF diet she is trying to comply w/ the diet could be contributing to weight loss (cirrhosis too could be contributing to weight loss) (14) Pancytopenia: 2nd cirrhosis stable Total Time Total Time Spent Total Time Spent (In Minutes): 45 Discharge Plan Discharge Items Patient Disposition: Home - Self-Care Reason For Visit: HEPATIC ENCEPHALOPATHY, UNCONTROLLED DIABETES Discharge Diagnosis: 1. Hepatic encephalopathy (elevated ammonia levels) - improved. Elevated ammonia is due to cirrhosis of the liver. 2. Uncontrolled diabetes - improved. 3. Severe aortic stenosis - follow-up needed. Activity: Resume your previous activity Non-emergency contact: Primary Care Provider, Specialist and Lemon Grower Call non-emergency contact if: you have any medication questions, your symptoms worsen and you have a fever Follow-up/Referrals: Efrain Anderson [Physician] - (see Dr Anderson or Jaqueline Aguayo at [facility] GI within 1-2 weeks) Jarrod Borges MD [Primary Care Provider] - (see Dr Borges next week as scheduled) Diet: Carb Consistent or DM2 and Gluten Free Addtl Attending Provider Instructions: Mrs Regalado, You were treated for elevated ammonia levels, also known as "hepatic encephalopathy," while hospitalized. The [facility] GI team saw you in consult and recommended escalating doses of lactulose to lower your ammonia levels. With higher doses you began to have good bowel movements with resulting decrease in the ammonia. Your discharge ammonia level was 42. Please remember, however, that ammonia levels are highly variable day-to-day and often don't correlate 100% with symptoms of hepatic encephalopathy. Symptoms of hepatic encephalopathy include confusion, memory difficulty, lethargy/fatigue, tremor of the hands, etc. Recommendations - 1. INCREASE your lactulose to 60ml (40 grams) twice daily. Your GI team wishes for you to shoot for 3-5 bowel movements/day. If you begin to experience copious, liquid stools you will need to lower your lactulose dose (cut it in half, etc). If you have to cut the dose back you can call [facility] GI for guidance. I have called in a new prescription for the lactulose to [facility]. 2. Humalog dosing -- * 5 units with breakfast * 8 units with lunch * 10 units with dinner 3. Lantus dosing - leave at 10 units twice a day. Follow-up - see separate section Keep your appointments as scheduled in [place] as well Return to [facility] if - * you have fever over 100 degrees * you have worsening swelling of the abdomen or legs * you have shortness of breath * you have confusion or lethargy * you are lightheaded or dizzy * any other concerns It was our pleasure caring for you! Dr Gary Pending Studies at Discharge: No Stand-Alone Forms: My [facility], Smoking Cessation Medications and DC Order Prescriptions: New lactulose 20 gram/30 mL Solution 60 ml PO BID Qty: 120 RF: 5 Continued atorvastatin 10 mg tablet 10 mg PO 2XWK RF: 0 levothyroxine 50 mcg tablet 50 mcg PO QAM RF: 0 omeprazole 40 mg capsule,delayed release(DR/EC) 40 mg PO QAM RF: 0 ferrous sulfate 325 mg (65 mg iron) tablet 325 mg PO QAM RF: 0 calcium carbonate-vitamin D3 600 mg(1,500mg) -400 unit capsule 1 cap PO PM RF: 0 biotin 5,000 mcg tablet, sublingual 5,000 mcg SL QAM RF: 0 multivitamin [Multiple Vitamins] tablet 1 tab PO QAM RF: 0 vitamin B complex capsule 1 cap PO QAM RF: 0 cholecalciferol (vitamin D3) 2,000 unit capsule 2,000 units PO QAM RF: 0 fluoride (sodium) 1.1 % paste 1 applic dental BID RF: 0 Lantus Solostar U-100 Insulin 100 unit/mL (3 mL) insulin pen 10 unit SUBCUT AMPM RF: 0 zinc 50 mg tablet 50 mg PO 3XWK RF: 0 ondansetron HCl [Zofran] 4 mg Tablet 4 mg PO Q8H PRN (Reason: Nausea) RF: 0 potassium chloride 10 mEq tablet extended release 40 meq PO QAM RF: 0 spironolactone 25 mg tablet 25 mg PO QAM RF: 0 furosemide 20 mg tablet 40 mg PO QAM RF: 0 Changed insulin lispro 100 unit/mL Insulin Pen See Rx Instructions .ROUTE .COMPLEX Qty: 15 RF: 0 Discontinued lactulose 10 gram/15 mL Syrup 10 g PO QAM RF: 0 Discharge Orders: Discharge Order (Routine); Ordered 04/08/21 Ordered By: Laurent Parrish/Other Patient Handouts: Hepatic Encephalopathy Admission Data Admit Date/Time: 04/04/21 23:50 Attending Provider: Lauretn Gary Admit Provider: Won Vieira Primary Care Provider: Jarrod Borges Other Providers: Won Vieira ; Efrain Anderson ; [id number],CAPPT Other Interventions: Discharge Summary Assessment (RN) Last Done: 04/08/21 13:18 Coding Level of Care Code D/C DAY MANAGEMENT >30 MINS Diagnoses Hepatic encephalopathy K72.90 Liver cirrhosis secondary to VARGAS K75.81; K74.60 S/P TIPS (transjugular intrahepatic portosystemic shunt) Z95.828 Hyperglycemia due to type 2 diabetes mellitus E11.65 Acute kidney injury superimposed on CKD N17.9; N18.9 Hyperlipidemia E78.5 Hypertension I10 SVT (supraventricular tachycardia) I47.1 Aortic stenosis I35.0 Esophageal varices I85.00 GERD (gastroesophageal reflux disease) K21.9 Hypothyroidism E03.9 Celiac disease K90.0 Pancytopenia D61.818
== END 2021-04-08 13:55 | disposition home or self-care (01) | DRG 441 ==
LOC: ED 19:49 → SUATTDRO 23:50 → 2N 23:50

== ENCOUNTER 2025-03-12 21:09 | Observation (INO) ==
[2025-03-12 22:34] LABS: Hematocrit (blood only) 34.3 % (37.0-47.0); Hemoglobin 11.3 g/dl (12.0-16.0); Immature Granulocytes # (auto) 0.01 K/uL (0.01-0.20); Immature Granulocytes % (auto) 0.2 %; Mean Corpuscular Hemoglobin 30.9 pg (25.0-34.0); Mean Corpuscular Volume 93.7 fL (80.0-100.0); Platelet Count 58 K/uL (130-400); RDW Standard Deviation 52.2 fL (36.4-46.3); Red Blood Count 3.66 M/uL (4.20-5.40); White Blood Count 5.03 K/ul (4.8-10.8)
[2025-03-12 22:40] LABS: Alanine Aminotransferase 17.0 U/L (7-52); Albumin Globulin Ratio 1.2 (0.9-2); Alkaline Phosphatase 52.0 U/L (34-104); Anion Gap 9.0 (3-11); Bilirubin,Total 1.4 mg/dl (0.2-1.0); Blood Urea Nitrogen 43.0 mg/dl (6-23); Calcium 9.8 mg/dl (8.6-10.3); Carbon Dioxide 25.0 mmol/L (21-32); Chloride 108.0 mmol/L (98-107); Creatinine Clr Calc Pharmacy 19.7 ml/min; Globulin 3.1 gm/dl (2.5-4.0); Glucose 73.0 mg/dl (70-99(Fasting)); Magnesium 2.1 mg/dl (1.7-2.4); Potassium 3.9 mmol/L (3.5-5.1); Sodium 142.0 mmol/L (136-145); Total Protein 6.8 gm/dl (6.0-8.3)
[2025-03-12 22:55] LABS: Thyroid Stimulating Hormone 1.097 uIu/ml (0.300-4.500)
--- NOTE | 2025-03-12 23:16 | XRay Report ---
Exam(s): XR CXR 1 VIEW EXAM: XR Chest, 1 View CLINICAL HISTORY: Reason for exam: Weakness. TECHNIQUE: Frontal view of the chest. COMPARISON: 01/13/2025. FINDINGS: Exam is limited. Lungs: No consolidation. Pleural space: No pleural effusion is seen. No pneumothorax. Heart: Heart is top normal in size.. Mediastinum: There is mild uncoiling of thoracic aorta.. Bones/joints: Grossly unremarkable.. IMPRESSION: No acute pulmonary disease. Electronically signed by: Neymar Farnsworth MD 03/12/25 23:15 PM
[2025-03-12 23:40] LABS: INR 1.2 (0.9-1.1); Partial Thromboplastin Time 28 Seconds (21-31); Prothrombin Time 12.4 Seconds (9.0-12.0)
--- NOTE | 2025-03-13 | Emergency Department Note ---
Impression & Plan Acute alteration in mental status, Acute kidney injury, Weakness Admit to the [facility] ED Provider Note NAME: MUSHTAQ HOGAN AGE: 69 SEX: Female INFORMANT: Patient and her ED PROVIDER(S): Isabela Pugh DO CHIEF COMPLAINT: altered mental status PLAN: Disposition: Admit to the [facility] MEDICAL DECISION MAKING: This is a 69-year-old female patient who was discharged from [facility] just 2 days ago after being admitted there for approximately 5 days on high-dose diuretics for congestive heart failure and weight gain. Patient and explained that just after discharge on Wednesday night, the patient began to develop some confusion and lethargy. Family thought she may be hypoglycemic but blood sugars remained in the normal range. Family explained that she had increased shaking and her overall demeanor seem to decline over the past 24-36 hours. On presentation to the emergency department, the patient was extremely lethargic. Laboratory studies revealed no leukocytosis. H&H were stable. Platelet count was at 58 which is normal for the patient. However, she had significant elevation to her BUN/creatinine. BUN was at 43 up from 35 and creatinine was at 2.43-up from 1.69. Urinalysis was unremarkable. Patient had CT of the brain which was unremarkable. She went on to have a MRI of the brain which was also noted to be unremarkable. On physical exam, the patient had appreciable left arm weakness and appeared to be encephalopathic. [facility] will [facility] for further inpatient care. Care/management discussed with: The patient's who is at the bedside and the [facility] Triage Nursing notes: reviewed and agree with them. Vital Signs: reviewed and unremarkable Prior/ Outside/ External records reviewed: I did review some records that the had in hand from [place] Differential Diagnosis: Hypoglycemia, UTI, encephalopathy, CVA, TIA, [facility], independently interpreted by me: ECG: sinus bradycardia at a rate of 59 with a right bundle branch block. This was compared to previous EKGs and was unchanged. There is no ST segment elevation or signs of ischemia Cardiac Monitoring: sinus bradycardia at 56 Imaging studies: CT scan of the brain: As per [facility] MRI of the brain: As per [facility] Chest x-ray: No acute pulmonary infiltrates or opacities as per my independent interpretation. HPI: 69 year old Female arrives for evaluation of altered mental status. Patient had been admitted at [place] over the past 5 days for congestive heart failure. She underwent significant diuresis and was doing much better upon discharge 2 days ago. However, over the past 24-36 hours, she has had a change in her demeanor and become increasingly weak and shaky to the point that she has had an alteration in mental status. She explains that she was unable to participate in normal activities such as checking her own blood sugar. She states that her family had to step in and help her out. PAST MEDICAL HISTORY: See Below, PAST SURGICAL HISTORY: See Below, SOCIAL HISTORY: See Below, HOME MEDICATIONS: See list ALLERGIES: See list VITALS: See Below PHYSICAL EXAMINATION: HEENT: Head - normocephalic and atraumatic. Pupils are equal, round, and reactive to light. Extraocular eye muscles are intact and sclera are anicteric. Nose -dry nasal mucosa without discharge. Mouth -extremely dry buccal mucosa. Oropharynx is nonerythematous and there is no tonsillar exudate or edema noted. Neck: Supple; no JVD, nuchal rigidity, cervical lymphadenopathy, or auscultated bruits. Heart: Bradycardic rate and regular rhythm. There is a normal S1 and S2 with no murmurs, clicks, or gallops appreciated. Lungs: Clear to auscultation bilaterally with no wheezes, rales, or rhonchi. Abdomen: Soft, completely nontender, nondistended, with good bowel sounds. There are no palpable pulsatile masses or hepatosplenomegaly. There is no guarding, rigidity, or rebound noted. Extremities: No evidence of cyanosis, clubbing, or edema. There are easily palpable peripheral pulses. Neuro:The patient is awake and alert, oriented to day, time, and place. Muscle strength is normal except for the left upper extremity which seems to be weak at the shoulder, elbow and hand with 4/5 muscle strength. There are no cerebellar signs. Skin: Extremely dry with poor turgor Emergency Department course: The patient was evaluated in room B-12. A complete history and physical was performed. An order was placed for continuous cardiac monitoring. The patient was in a sinus bradycardia at a rate of 56. A portable chest x-ray was performed. Laboratory studies were obtained. A urine specimen was obtained. Patient went for a CT scan of the brain. She then went on to have an MRI of the brain. I discussed the case with the [facility] Hospitalist and they will evaluate for further inpatient care. Past Med/Surg History Problem List (Updated 03/13/25 @ 14:53 by Isabela Pugh DO) Weakness (Acute) Acute kidney injury (Acute) Acute alteration in mental status (Acute) Elevated serum creatinine Mitral stenosis Nonrheumatic mitral annular calcification Diastolic CHF due to valvular disease Elevated troponin (Acute) Chronic kidney disease (CKD) (Acute) Elevated brain natriuretic peptide (BNP) level (Acute) Bilateral edema of lower extremity (Acute) Dyspnea (Acute) COVID Lumbar back pain Shoulder injury Trigger finger Mitral regurgitation Anemia Hypothyroidism Hypertension Cirrhosis of liver Thrombocytopenia Iron deficiency anemia Mixed hyperlipidemia Celiac disease Type 2 diabetes mellitus with diabetic chronic kidney disease Osteoporosis Hypothyroidism Aortic stenosis, mild echocardiogram performed 09/04/2021 demonstrated severe aortic stenosis and moderate mitral stenosis and mitral regurgitation patient underwent tab for on 10/16/2021 with a 23 millimeter Sultana Kevan ultra valve Vitamin D deficiency VARGAS (nonalcoholic steatohepatitis) (Acute) Internal hemorrhoids (Acute) Stage 3b chronic 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 Celiac disease GERD (gastroesophageal reflux disease) Nonalcoholic fatty liver disease Basal cell carcinoma of left side of nose Malignant melanoma of skin of right ear Anemia Hypothyroidism Hypertension Hyperlipidemia Aortic stenosis moderate 2020 SVT (supraventricular tachycardia) Radial head fracture Surgical History S/P TAVR (transcatheter aortic valve replacement) 10/16/21 S/P TIPS (transjugular intrahepatic portosystemic shunt) Hx of abdominal surgery stomach nodules 1992 History of colonoscopy with polypectomy History of bilateral salpingo-oophorectomy ([place]O) [place] [facility] [place] History of section x2 ; History of hysterectomy 1990 History of dilatation and curettage S/P foot surgery, left x3--neuroma removal , , History of esophagogastroduodenoscopy (EGD) 01/02/19 and 01/13/20 History of facial surgery melanoma removal of right side of face by ear Status post Mohs surgery for basal cell carcinoma remove off nose History of wisdom tooth extraction 1974 History of adenoidectomy Family History Grandmother (Maternal) Family history of diabetes mellitus Mother Hypertension Diabetes Dyslipidemia Father Hypertension Myocardial infarction, Onset Age: 58 Brother Diabetes Other No family history of adverse response to anesthesia Social History Smoking Status: Former smoker Tobacco Type: Cigarettes Age Started Using Tobacco: 20; Age Quit Using Tobacco: 49; packs per day: 0.75; Second Hand Exposure: No; Do You Dip or Chew Tobacco: No; Tobacco Cessation Education Requested by Patient: No Hx Alcohol Use: No Hx Substance Use: No Preferred Language: Bulgarian Communication Ability: Effective Visual Impairment: No Limitations Hearing Ability: Normal Commodity Management Specialist Required: No Beliefs That Will Affect Care: None marital status: Current Living Situation: Spouse Current Living Situation Comment: With and two grown children current occupational status: retired Other Information That Helps Us Care for You: No Feels Safe at Home: Yes Safety Concerns: Feels Safe At This Time Diet: gluten free caffeine: No Physical Activity Frequency: Does not Exercise Seatbelt Use: always Do you think of yourself as: straight/heterosexual Gender Identity: Female Assistive Devices: Walker Allergies Allergies Allergy/AdvReac Type Severity Reaction Status Date / Time bacitracin Allergy Mild REDNESS/MONICA Verified 02/08/25 16:36 H neomycin Allergy Mild REDNESS Verified 02/08/25 16:36 AND RASH canagliflozin [From Invokana] Allergy Palpitation Unverified 02/08/25 16:36 s glipizide Allergy Rash Unverified 02/08/25 16:36 gluten Allergy Verified 02/08/25 16:36 Home Meds Home Medications Medication Instructions Recorded Confirmed calcium 600 mg (as 1 cap PO PM 07/03/19 03/13/25 carbonate)-vitamin D3 10 mcg (400 unit) capsule ferrous sulfate 325 mg (65 mg 325 mg PO QAM 07/03/19 03/13/25 iron) tablet multivitamin (Multiple Vitamins 1 tab PO QAM 07/03/19 03/13/25 tablet) vitamin B complex 1 cap PO QAM 07/03/19 03/13/25 aspirin 81 mg tablet,delayed 81 mg PO DAILY 10/28/21 03/13/25 release (Adult Low Dose Aspirin) blood sugar diagnostic (Accu-Chek #10 ea 06/01/22 02/19/25 SmartView Test Strips) biotin 5,000 mcg disintegrating 10,000 mcg PO DAILY 06/10/22 03/13/25 tablet insulin lispro 100 unit/mL See Rx Instructions .Route .COMPLEX 12/05/24 03/13/25 subcutaneous pen rifaximin 550 mg tablet (Xifaxan) 550 mg PO BID 12/05/24 03/13/25 denosumab 60 mg/mL subcutaneous 60 mg subcut DIRECTED 02/08/25 03/13/25 syringe (Prolia) carvedilol 6.25 mg tablet 6.25 mg PO BID 02/19/25 03/13/25 zinc gluconate 30 mg tablet 30 mg PO .3 times weekly 02/19/25 03/13/25 amoxicillin 500 mg capsule See Rx Instructions .Route .COMPLEX 03/13/25 03/13/25 atorvastatin 40 mg tablet 40 mg PO HS 03/13/25 03/13/25 furosemide 20 mg tablet 40 mg PO QAM 03/13/25 03/13/25 valsartan 80 mg tablet 80 mg PO QAM 03/13/25 03/13/25 Previous Rx's Medication Instructions Recorded levothyroxine 50 mcg tablet 50 mcg PO QAM #90 tabs 06/02/24 spironolactone 25 mg tablet 25 mg PO QAM #90 tabs 06/12/24 omeprazole 40 mg capsule,delayed 40 mg PO QAM #90 caps 06/26/24 release insulin glargine 100 unit/mL (3 8 unit (0.08 mL) subcut QAM #0 mL 02/14/25 mL) subcutaneous pen (Lantus Solostar U-100 Insulin) glucagon 3 mg/actuation nasal spray 3 mg intranasal .qd #1 ea 02/19/25 Results & Data (ED) Vital Signs Vital Signs - 24 hr 03/12/25 21:17 03/12/25 21:21 03/12/25 21:21 Temperature 36.6 C Temperature Source Oral Pulse Rate 63 64 Pulse Rate [Apical] Pulse Rhythm Regular Pulse Rhythm [Apical] Pulse Strength Normal Pulse Strength [Apical] Respiratory Rate 18 Respiratory Effort / Characteristics Non-Labored Spontaneous Respiratory Depth Normal Respiratory Pattern Regular Blood Pressure 179/79 H Blood Pressure [Right Arm] Blood Pressure Mean 112 Blood Pressure Mean [Right Arm] Blood Pressure Position Lying Blood Pressure Position [Right Arm] Pulse Oximetry 100 100 Oxygen Delivery Method Room Air Room Air Sepsis Recent Fever Within 48 Hours No Sepsis New/Unexplained Change in Mental Status No Sepsis Action Taken by Nursing No Action Required 03/12/25 21:21 03/12/25 22:06 03/12/25 22:30 Temperature 36.6 C Temperature Source Oral Pulse Rate 55 L 63 Pulse Rate [Apical] 55 L Pulse Rhythm Pulse Rhythm [Apical] Regular Pulse Strength Pulse Strength [Apical] Normal Respiratory Rate 20 15 15 Respiratory Effort / Characteristics Non-Labored Spontaneous Respiratory Depth Normal Respiratory Pattern Regular Blood Pressure 170/58 H 180/72 H Blood Pressure [Right Arm] 179/79 H Blood Pressure Mean 95 108 Blood Pressure Mean [Right Arm] 112 Blood Pressure Position Blood Pressure Position [Right Arm] Lying Pulse Oximetry 100 98 100 Oxygen Delivery Method Room Air Room Air Room Air Sepsis Recent Fever Within 48 Hours Sepsis New/Unexplained Change in Mental Status Sepsis Action Taken by Nursing 03/12/25 23:29 03/13/25 00:40 03/13/25 01:04 Temperature Temperature Source Pulse Rate Pulse Rate [Apical] 63 57 L 57 L Pulse Rhythm Pulse Rhythm [Apical] Pulse Strength Pulse Strength [Apical] Respiratory Rate 13 23 13 Respiratory Effort / Characteristics Non-Labored Spontaneous Non-Labored Spontaneous Respiratory Depth Normal Normal Respiratory Pattern Regular Regular Blood Pressure Blood Pressure [Right Arm] 149/61 H 144/56 H 165/63 H Blood Pressure Mean Blood Pressure Mean [Right Arm] 90 85 97 Blood Pressure Position Blood Pressure Position [Right Arm] Pulse Oximetry 98 99 99 Oxygen Delivery Method Room Air Room Air Sepsis Recent Fever Within 48 Hours Sepsis New/Unexplained Change in Mental Status Sepsis Action Taken by Nursing 03/13/25 01:28 03/13/25 02:53 Temperature Temperature Source Pulse Rate 58 L Pulse Rate [Apical] 57 L Pulse Rhythm Pulse Rhythm [Apical] Pulse Strength Pulse Strength [Apical] Respiratory Rate 16 Respiratory Effort / Characteristics Non-Labored Spontaneous Respiratory Depth Normal Respiratory Pattern Regular Blood Pressure Blood Pressure [Right Arm] 158/67 H Blood Pressure Mean Blood Pressure Mean [Right Arm] 97 Blood Pressure Position Blood Pressure Position [Right Arm] Pulse Oximetry 98 Oxygen Delivery Method Room Air Sepsis Recent Fever Within 48 Hours Sepsis New/Unexplained Change in Mental Status Sepsis Action Taken by Nursing Laboratory Data 03/13/25 08:50 03/13/25 08:50 Lab Results 03/12/25 03/13/25 03/13/25 Range/Units 21:18 00:17 00:35 WBC 5.03 (4.8-10.8) K/ul RBC 3.66 L (4.20-5.40) M/uL Hgb 11.3 L (12.0-16.0) g/dl Hct 34.3 L (37.0-47.0) % MCV 93.7 (80.0-100.0) fL MCH 30.9 (25.0-34.0) pg MCHC 32.9 (32.0-36.0) g/dL RDW Std Deviation 52.2 H (36.4-46.3) fL RDW Coeff of Ryan 15.2 H (11.5-14.5) % Plt Count 58 L (130-400) K/uL MPV 14.1 H (9.4-12.4) fL Immature Gran % (Auto) 0.2 % Neut % (Auto) 78.2 % Lymph % (Auto) 10.9 % Valley % (Auto) 9.1 % Eos % (Auto) 1.2 % Baso % (Auto) 0.4 % Neut # (Auto) 3.93 (1.40-6.50) K/uL Lymph # (Auto) 0.55 L (1.20-3.40) K/uL Valley # (Auto) 0.46 (0.11-0.59) K/uL Eos # (Auto) 0.06 (0.00-0.50) K/uL Baso # (Auto) 0.02 (0.00-0.20) K/uL Immature Gran # (Auto) 0.01 (0.01-0.20) K/uL PT 12.4 H (9.0-12.0) Seconds INR 1.2 H (0.9-1.1) APTT 28 (21-31) Seconds PTT Ratio 1.0 Sodium 142 (136-145) mmol/L Potassium 3.9 (3.5-5.1) mmol/L Chloride 108 H (98-107) mmol/L Carbon Dioxide 25 (21-32) mmol/L Anion Gap 9 (3-11) BUN 43 H (6-23) mg/dl Creatinine 2.43 H (0.6-1.2) mg/dl Est Cr Clr Drug Dosing 19.7 ml/min eGFR 21.01 BUN/Creatinine Ratio 17.7 (10-20) Glucose 73 (70-99(Fasting)) mg/dl Calcium 9.8 (8.6-10.3) mg/dl Magnesium 2.1 (1.7-2.4) mg/dl Total Bilirubin 1.4 H (0.2-1.0) mg/dl AST 32 (13-39) U/L ALT 17 (7-52) U/L Alkaline Phosphatase 52 (34-104) U/L Troponin I High Sens 16.0 H 16.3 H (0-14) pg/ml Total Protein 6.8 (6.0-8.3) gm/dl Albumin 3.7 (3.4-5.0) gm/dl Globulin 3.1 (2.5-4.0) gm/dl Albumin/Globulin Ratio 1.2 (0.9-2) TSH 1.097 (0.300-4.500) uIu/ml Urine Color Dark Yellow Urine Appearance Clear (Clear) Urine pH 5.5 (4.5-7.5) Ur Specific [place] 1.017 (1.000-1.030) Urine Protein 2+ H (Negative) Urine Glucose (UA) Negative (Negative) Urine Ketones Trace H (Negative) Urine Blood Negative (Negative) Urine Nitrite Negative (Negative) Urine Bilirubin Negative (Negative) Urine Urobilinogen Negative (Negative) Ur Leukocyte Esterase Negative (Negative) Urine WBC (Auto) 0-5 (0-5) /hpf Urine RBC (Auto) 0-2 (0-2) /hpf U Hyaline Cast (Auto) 6-10 H (0-2) /lpf U Epithel Cells (Auto) 0-2 (0-2) /hpf Urine Bacteria (Auto) None Seen (None Seen) Ur Random Creatinine 158.2 mg/dl U Random Total Protein 74.6 H (0-11.9) mg/dl Protein/Creatinin Ratio 0.5 H (0-0.2) Urine Comment Blood Type O Positive Antibody Screen NEGATIVE Administered Medications Aspirin (Aspirin 81 Mg Ectab) 81 mg PO DAILY [facility] Stop: 04/12/25 08:59 Last Admin: 03/13/25 09:06 Dose: 81 mg Documented By: VLADISLAV Carvedilol (Carvedilol 6.25 Mg Tab) 6.25 mg PO BID [facility] Stop: 04/12/25 08:59 Last Admin: 03/13/25 09:07 Dose: 6.25 mg Documented By: VLADISLAV Heparin Sodium (Porcine) (Heparin Sod 5,000 Unit/0.5 Ml Vial) 5,000 units SQ Q12 [facility] Stop: 04/12/25 08:59 Last Admin: 03/13/25 09:06 Dose: 5,000 units Documented By: VLADISLAV Insulin Aspart (Insulin Aspart Per Unit Charge) 0 units SC ACHS [facility] Stop: 04/12/25 07:29 Last Admin: 03/13/25 12:11 Dose: 3 units Documented By: VLADISLAV Co-signed By: SHERRELL Admin: 03/13/25 09:05 Dose: 2 units Documented By: VLADISLAV Co-signed By: SHERRELL Levothyroxine Sodium (Levothyroxine Sodium 50 Mcg Tablet) 50 mcg PO DAILYBB [facility] Stop: 04/12/25 06:29 Last Admin: 03/13/25 06:21 Dose: 50 mcg Documented By: RAFIQ Ondansetron HCl (Ondansetron Inj 2 Mg/Ml 2 Ml Vial) 4 mg IV Q6H PRN PRN Reason: Nausea And Vomiting Stop: 04/12/25 11:11 Last Admin: 03/13/25 11:24 Dose: 4 mg Documented By: VLADISLAV Pantoprazole Sodium (Pantoprazole 40 Mg Tab) 40 mg PO QAM [facility] Stop: 04/12/25 08:59 Last Admin: 03/13/25 09:07 Dose: 40 mg Documented By: VLADISLAV Rifaximin (Rifaximin 550 Mg Tablet) 550 mg PO BID [facility] Stop: 04/12/25 08:59 Last Admin: 03/13/25 09:06 Dose: 550 mg Documented By: VLADISLAV Spironolactone (Spironolactone 25 Mg Tab) 25 mg PO QAM [facility] Stop: 04/12/25 08:59 Last Admin: 03/13/25 09:07 Dose: 25 mg Documented By: VLADISLAV Imaging Data Radiologist's Impression: Brain MRI 03/13/25 01:13 EXAM: MR brain wo con CLINICAL HISTORY: eval for acute CVA; left arm weak TECHNIQUE: Multisequential and multiplanar images of the brain were submitted for review without contrast. COMPARISON: None. FINDINGS: Generalized parenchymal atrophy is appreciated. Scattered foci of increased T2/FLAIR signal abnormality are identified within the bilateral periventricular and subcortical white matter, and are most commonly associated with chronic small vessel ischemic disease. No focal parenchymal lesions are seen. No intracranial hemorrhage, mass effect, midline shift, extra-axial collection, or hydrocephalus is identified. Ventricles, sulci, and basal cisterns are symmetric and normal in size and configuration. Diffusion-weighted sequences show no evidence of acute ischemic infarction. Midline structures including the pituitary gland, corpus callosum, pineal region, and brainstem are unremarkable. The craniovertebral junction is within normal limits. No calvarial abnormalities are identified. The paranasal sinuses and mastoid air cells are clear. Orbital structures are unremarkable. Appropriate flow voids are present in the visualized intracranial vessels. IMPRESSION: 1. No acute ischemia, space occupying mass, or other acute intracranial pathology is demonstrated. 2. Chronic small vessel ischemic disease. 3. Diffuse cerebral atrophy. Electronically signed by Twan Vyas 03-13-2025 03:18 AM Discharge Plan Visit Data Chief Complaint: Weakness Stated Complaint: Weakness, Lethargic ED Provider: Isabela Pugh Discharge Problem: Acute alteration in mental status, Acute kidney injury, Weakness Patient Disposition: Admitted As Inpatient Condition: Serious Discharge Instructions Interventions: ED Discharge Assessment Last Done: 03/13/25 05:14
--- NOTE | 2025-03-13 01:01 | CT Scan Report ---
EXAM: CT head/brain wo con CLINICAL HISTORY: neuro deficit, acute stroke suspected TECHNIQUE: Multiple axial images are obtained from the skull base to the vertex without contrast. CT scan was performed according to ALARA (as low as reasonable achievable). COMPARISON: none FINDINGS: Ill defined hypodensity in left capsuloganglionic region - could represent acute/sub acute infarct in left middle cerebral artery territory There is cerebral atrophy. No evidence of space occupying lesion, hemorrhage, edema, mass effect, midline shift, extra axial collection, or hydrocephalus is noted. Basal cisterns are symmetric and normal in size and configuration. There are scattered periventricular hypodensities as can be seen with chronic microvascular ischemic changes. The lange-white matter differentiation is preserved. Visualized paranasal sinuses and mastoid air cells are well aerated. Orbital contents are within normal limits. Bony structures are intact. IMPRESSION: 1. Ill defined hypodensity in left capsuloganglionic region - May represent chronic infarcts. 2. Chronic microvascular ischemic changes. 3. Cerebral atrophy. MRI brain is suggested for better evaluation to rule out underlying hyperacute/acute infarct. CT scan can be negative in such clinical settings. Electronically signed by Twan Vyas 03-13-2025 01:00 AM
[2025-03-13 01:07] LABS: Appearance Urine Clear (Clear); Bacteria Urine Automated None Seen (None Seen); Epithelial Cell Urine Auto 0-2 /hpf (0-2); Glucose Urine UA Negative (Negative); RBC Urine Automated 0-2 /hpf (0-2); WBC Urine Automated 0-5 /hpf (0-5)
--- NOTE | 2025-03-13 03:19 | Magnetic Resonance Report ---
EXAM: MR brain wo con CLINICAL HISTORY: eval for acute CVA; left arm weak TECHNIQUE: Multisequential and multiplanar images of the brain were submitted for review without contrast. COMPARISON: None. FINDINGS: Generalized parenchymal atrophy is appreciated. Scattered foci of increased T2/FLAIR signal abnormality are identified within the bilateral periventricular and subcortical white matter, and are most commonly associated with chronic small vessel ischemic disease. No focal parenchymal lesions are seen. No intracranial hemorrhage, mass effect, midline shift, extra-axial collection, or hydrocephalus is identified. Ventricles, sulci, and basal cisterns are symmetric and normal in size and configuration. Diffusion-weighted sequences show no evidence of acute ischemic infarction. Midline structures including the pituitary gland, corpus callosum, pineal region, and brainstem are unremarkable. The craniovertebral junction is within normal limits. No calvarial abnormalities are identified. The paranasal sinuses and mastoid air cells are clear. Orbital structures are unremarkable. Appropriate flow voids are present in the visualized intracranial vessels. IMPRESSION: 1. No acute ischemia, space occupying mass, or other acute intracranial pathology is demonstrated. 2. Chronic small vessel ischemic disease. 3. Diffuse cerebral atrophy. Electronically signed by Twan Vyas 03-13-2025 03:18 AM
--- NOTE | 2025-03-13 03:50 | History & Physical Report ---
Date of Service March 13, 2025 Assessment & Plan (1) Diastolic CHF due to valvular disease: (2) Elevated serum creatinine: (3) Mitral stenosis: (4) Hypertension: (5) Cirrhosis of liver: Plan 69 year old female With her liver, heart and now renal function increasing effected consider palliative care consult for goals of care discussion but urgency this needs to be performed as inpatient #Suspected hepatic encephalopathy / altered mental status / liver cirrhosis Asterixis on exam Ammonia level pending although even if this is low this remains the most likely diagnosis as she is already mostly resolved therefore will avoid further laxatives at this time Continue MiraLAX and rifaximin #Elevated Cr / CKD stage G4/A? Below threshold for ZAY although unknown most recent Cr levels at [facility] Only new medication is valsartan from [place] therefore will discontinue this as she also hasn't been able to tolerated Entresto therefore AceI/ARBs may not be tolerated for management of her BP Protein/Cr ratio added to UA with 2+ protein noted Consult nephrology #Chronic diastolic heart failure with severe mitral stenosis Evaluated with ANNA at [facility] although I am unclear on the outcome of this, will consult cardiology if transfer is an option for valve replacement once renal function improves Otherwise it appears she doesn't tolerate being off Lasix and spironolactone therefore will continue these as she currently appears euvolemic and I presume the valsartan rather than over diuresis caused her elevated Cr above Continue Lasix 40mg PO daily and spironolactone, consider reduction in Lasix if continued worsening of Cr #GERD Switch omeprazole for pantoprazole per hospital formulary #Hypothyroidism TSH WNL Continue levothyroxine 50 mcg PO daily VTE Prophylaxis - heparin 5000 units SQ BID Disposition - admit to med/tele Admission and Anticipated Discharge Date Admission Date: March 13, 2025 History of Present Illness Chief Complaint: Altered mental status Primary Care Provider: Jarrod Borges MD Audrey Regalado is a 69 year old female with VARGAS cirrhosis /p TIPS, HFpEF with severe mitral stenosis, celiacs disease, who presents to the ER with altered mental status after recent discharge from [facility] on March 10. She reports increasing confusion since she was discharged. She has been taking medications as prescribed. Using MiraLAX to aim for 2 bowel movements a day which has been regular for her. She denies any confusion at the [place]. Her confusion has been generalized with waking up this morning and not knowing herself or her name, she couldn't answer basic questions. She was taking her glucose level x4/day with none below 100. She was hospitalized at [facility] from February 08 - 2024 due to acute congestive heart failure with severe mitral stenosis. She was diuresed with Lasix 40mg on the first day then 20mg daily after this. Reportedly she improved back to her dry weight while in hospital. Lasix was not continued on discharge but started by her PCP as she started gaining weight again on February 19. She was followed up by cardiology on March 05 and despite restarting on Lasix she was gaining weight again therefore decision was made for her to go to [place] as she could be evaluated for mitral valve surgery while there. She was admitted to [facility] from March 05 - 2024 and diuresed again with intravenous Lasix. Unclear on doses and labs at this time as I do not have access to these records on admission. Her weight has been stable since discharge at 144-145lb. Allergies Allergy/AdvReac Type Severity Reaction Status Date / Time bacitracin Allergy Mild REDNESS/MONICA Verified 02/08/25 16:36 H neomycin Allergy Mild REDNESS Verified 02/08/25 16:36 AND RASH canagliflozin [From Invokana] Allergy Palpitation Unverified 02/08/25 16:36 s glipizide Allergy Rash Unverified 02/08/25 16:36 gluten Allergy Verified 02/08/25 16:36 Home Medications Medication Instructions Recorded Confirmed Type calcium 600 mg (as 1 cap PO PM 07/03/19 03/13/25 History carbonate)-vitamin D3 10 mcg (400 unit) capsule ferrous sulfate 325 mg (65 mg 325 mg PO QAM 07/03/19 03/13/25 History iron) tablet multivitamin (Multiple Vitamins 1 tab PO QAM 07/03/19 03/13/25 History tablet) vitamin B complex 1 cap PO QAM 07/03/19 03/13/25 History aspirin 81 mg tablet,delayed 81 mg PO DAILY 10/28/21 03/13/25 History release (Adult Low Dose Aspirin) blood sugar diagnostic (Accu-Chek #10 ea 06/01/22 02/19/25 History SmartView Test Strips) biotin 5,000 mcg disintegrating 10,000 mcg PO DAILY 06/10/22 03/13/25 History tablet levothyroxine 50 mcg tablet 50 mcg PO QAM #90 tabs 06/02/24 03/13/25 Rx spironolactone 25 mg tablet 25 mg PO QAM #90 tabs 06/12/24 03/13/25 Rx omeprazole 40 mg capsule,delayed 40 mg PO QAM #90 caps 06/26/24 03/13/25 Rx release insulin lispro 100 unit/mL See Rx Instructions .Route .COMPLEX 12/05/24 03/13/25 History subcutaneous pen rifaximin 550 mg tablet (Xifaxan) 550 mg PO BID 12/05/24 03/13/25 History denosumab 60 mg/mL subcutaneous 60 mg subcut DIRECTED 02/08/25 03/13/25 History syringe (Prolia) insulin glargine 100 unit/mL (3 8 unit (0.08 mL) subcut QAM #0 mL 02/14/25 03/13/25 Rx mL) subcutaneous pen (Lantus Solostar U-100 Insulin) carvedilol 6.25 mg tablet 6.25 mg PO BID 02/19/25 03/13/25 History glucagon 3 mg/actuation nasal spray 3 mg intranasal .qd #1 ea 02/19/25 03/13/25 Rx zinc gluconate 30 mg tablet 30 mg PO .3 times weekly 02/19/25 03/13/25 History amoxicillin 500 mg capsule See Rx Instructions .Route .COMPLEX 03/13/25 03/13/25 History atorvastatin 40 mg tablet 40 mg PO HS 03/13/25 03/13/25 History furosemide 20 mg tablet 40 mg PO QAM 03/13/25 03/13/25 History valsartan 80 mg tablet 80 mg PO QAM 03/13/25 03/13/25 History Past Med/Surg History Problem List (Updated 03/13/25 @ 04:57 by Laurent Clayton MD) Elevated serum creatinine Mitral stenosis Nonrheumatic mitral annular calcification Diastolic CHF due to valvular disease Elevated troponin (Acute) Chronic kidney disease (CKD) (Acute) Elevated brain natriuretic peptide (BNP) level (Acute) Bilateral edema of lower extremity (Acute) Dyspnea (Acute) COVID Lumbar back pain Shoulder injury Trigger finger Mitral regurgitation Anemia Hypothyroidism Hypertension Cirrhosis of liver Thrombocytopenia Iron deficiency anemia Mixed hyperlipidemia Celiac disease Type 2 diabetes mellitus with diabetic chronic kidney disease Osteoporosis Hypothyroidism Aortic stenosis, mild echocardiogram performed 09/04/2021 demonstrated severe aortic stenosis and moderate mitral stenosis and mitral regurgitation patient underwent tab for on 10/16/2021 with a 23 millimeter Sultana Kevan ultra valve Vitamin D deficiency VARGAS (nonalcoholic steatohepatitis) (Acute) Internal hemorrhoids (Acute) Stage 3b chronic 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 Celiac disease GERD (gastroesophageal reflux disease) Nonalcoholic fatty liver disease Basal cell carcinoma of left side of nose Malignant melanoma of skin of right ear Anemia Hypothyroidism Hypertension Hyperlipidemia Aortic stenosis moderate 2020 SVT (supraventricular tachycardia) Radial head fracture Surgical History S/P TAVR (transcatheter aortic valve replacement) 10/16/21 S/P TIPS (transjugular intrahepatic portosystemic shunt) Hx of abdominal surgery stomach nodules 1992 History of colonoscopy with polypectomy [place] [facility] [place] History of section x2 ; History of hysterectomy 1991 History of dilatation and curettage S/P foot surgery, left x3--neuroma removal , , History of esophagogastroduodenoscopy (EGD) 01/02/19 and 01/13/20 History of facial surgery melanoma removal of right side of face by ear Status post Mohs surgery for basal cell carcinoma remove off nose History of wisdom tooth extraction 1974 History of adenoidectomy Family History Grandmother (Maternal) Family history of diabetes mellitus Mother Hypertension Diabetes Dyslipidemia Father Hypertension Myocardial infarction, Onset Age: 58 Brother Diabetes Other No family history of adverse response to anesthesia Social History Smoking Status: Former smoker Tobacco Type: Cigarettes Age Started Using Tobacco: 20; Age Quit Using Tobacco: 49; packs per day: 0.75; Second Hand Exposure: No; Do You Dip or Chew Tobacco: No; Hx Alcohol Use: No Hx Substance Use: No Preferred Language: Indonesian Communication Ability: Effective Visual Impairment: No Limitations Hearing Ability: Normal Ciaio Counter Molder Required: No Beliefs That Will Affect Care: None marital status: Current Living Situation: Spouse Current Living Situation Comment: With and two grown children current occupational status: retired Feels Safe at Home: Yes Diet: gluten free caffeine: No Physical Activity Frequency: Does not Exercise Seatbelt Use: always Do you think of yourself as: straight/heterosexual Gender Identity: Female Assistive Devices: Glasses Review of Systems Review of Systems: All systems reviewed & are unremarkable except as noted in HPI & below Physical Exam Constitutional: WD/WN, vitals as above ENMT: external ear and nose normal, oropharynx normal Respiratory: normal respiratory effort, lungs clear to auscultation Cardiovascular: Rate/Rhythm: regular rate and regular rhythm Heart Sounds: + murmur (systolic throughout) Gastrointestinal (Abdomen): normal bowel sounds, soft, nontender, no hepatosplenomegaly Musculoskeletal: no cyanosis or clubbing, extremities motor strength 5/5 Skin: no rashes, warm and dry Neurologic: moves all extremities and awake; no focal motor deficits and not confused Speech / Cognition: normal speech Motor/Sensory: + asterixis (bilateral L > R); no tremor and no pronator drift Cranial Nerves: PERRL, EOM intact bilaterally, normal facial strength, tongue midline, able to rotate head bilaterally, able to elevate shoulders bilaterally, no nystagmus and symmetric palate elevation Psychiatric: A+Ox3, euthymic affect Results & Data Results & Data Vital Signs (Past 12 Hours) Vital Signs Temp Pulse Pulse Resp BP BP Pulse Ox 03/13/25 02:53 57 L 16 158/67 H 98 03/13/25 01:28 58 L 03/13/25 01:04 57 L 13 165/63 H 99 03/13/25 00:40 57 L 23 144/56 H 99 03/12/25 23:29 63 13 149/61 H 98 03/12/25 22:30 63 15 180/72 H 100 03/12/25 22:06 55 L 15 170/58 H 98 03/12/25 21:21 36.6 C 55 L 20 179/79 H 100 03/12/25 21:21 100 03/12/25 21:21 36.6 C 64 18 179/79 H 100 03/12/25 21:17 63 O2 Del Method 03/13/25 02:53 Room Air 03/13/25 01:28 03/13/25 01:04 Room Air 03/13/25 00:40 Room Air 03/12/25 23:29 03/12/25 22:30 Room Air 03/12/25 22:06 Room Air 03/12/25 21:21 Room Air 03/12/25 21:21 Room Air 03/12/25 21:21 Room Air 03/12/25 21:17 Laboratory Results Abnormal lab results 03/12/25 03/13/25 03/13/25 Range/Units 21:18 00:17 00:35 RBC 3.66 L (4.20-5.40) M/uL Hgb 11.3 L (12.0-16.0) g/dl Hct 34.3 L (37.0-47.0) % RDW Std Deviation 52.2 H (36.4-46.3) fL RDW Coeff of Ryan 15.2 H (11.5-14.5) % Plt Count 58 L (130-400) K/uL MPV 14.1 H (9.4-12.4) fL Lymph # (Auto) 0.55 L (1.20-3.40) K/uL PT 12.4 H (9.0-12.0) Seconds INR 1.2 H (0.9-1.1) Chloride 108 H (98-107) mmol/L BUN 43 H (6-23) mg/dl Creatinine 2.43 H (0.6-1.2) mg/dl Total Bilirubin 1.4 H (0.2-1.0) mg/dl Troponin I High Sens 16.0 H 16.3 H (0-14) pg/ml B-Natriuretic Peptide (0-100) pg/ml Urine Protein 2+ H (Negative) Urine Ketones Trace H (Negative) U Hyaline Cast (Auto) 6-10 H (0-2) /lpf U Random Total Protein 74.6 H (0-11.9) mg/dl Protein/Creatinin Ratio 0.5 H (0-0.2) 07/15/25 Range/Units 04:15 RBC (4.20-5.40) M/uL Hgb (12.0-16.0) g/dl Hct (37.0-47.0) % RDW Std Deviation (36.4-46.3) fL RDW Coeff of Ryan (11.5-14.5) % Plt Count (130-400) K/uL MPV (9.4-12.4) fL Lymph # (Auto) (1.20-3.40) K/uL PT (9.0-12.0) Seconds INR (0.9-1.1) Chloride (98-107) mmol/L BUN (6-23) mg/dl Creatinine (0.6-1.2) mg/dl Total Bilirubin (0.2-1.0) mg/dl Troponin I High Sens (0-14) pg/ml B-Natriuretic Peptide 687 H (0-100) pg/ml Urine Protein (Negative) Urine Ketones (Negative) U Hyaline Cast (Auto) (0-2) /lpf U Random Total Protein (0-11.9) mg/dl Protein/Creatinin Ratio (0-0.2) Diagnostic Findings CT head/brain wo con CLINICAL HISTORY: neuro deficit, acute stroke suspected TECHNIQUE: Multiple axial images are obtained from the skull base to the vertex without contrast. CT scan was performed according to ALARA (as low as reasonable achievable). COMPARISON: none FINDINGS: Ill defined hypodensity in left capsuloganglionic region - could represent acute/sub acute infarct in left middle cerebral artery territory There is cerebral atrophy. No evidence of space occupying lesion, hemorrhage, edema, mass effect, midline shift, extra axial collection, or hydrocephalus is noted. Basal cisterns are symmetric and normal in size and configuration. There are scattered periventricular hypodensities as can be seen with chronic microvascular ischemic changes. The lange-white matter differentiation is preserved. Visualized paranasal sinuses and mastoid air cells are well aerated. Orbital contents are within normal limits. Bony structures are intact. IMPRESSION: 1. Ill defined hypodensity in left capsuloganglionic region - May represent chronic infarcts. 2. Chronic microvascular ischemic changes. 3. Cerebral atrophy. MR brain wo con CLINICAL HISTORY: eval for acute CVA; left arm weak TECHNIQUE: Multisequential and multiplanar images of the brain were submitted for review without contrast. COMPARISON: None. FINDINGS: Generalized parenchymal atrophy is appreciated. Scattered foci of increased T2/FLAIR signal abnormality are identified within the bilateral periventricular and subcortical white matter, and are most commonly associated with chronic small vessel ischemic disease. No focal parenchymal lesions are seen. No intracranial hemorrhage, mass effect, midline shift, extra-axial collection, or hydrocephalus is identified. Ventricles, sulci, and basal cisterns are symmetric and normal in size and configuration. Diffusion-weighted sequences show no evidence of acute ischemic infarction. Midline structures including the pituitary gland, corpus callosum, pineal region, and brainstem are unremarkable. The craniovertebral junction is within normal limits. No calvarial abnormalities are identified. The paranasal sinuses and mastoid air cells are clear. Orbital structures are unremarkable. Appropriate flow voids are present in the visualized intracranial vessels. IMPRESSION: 1. No acute ischemia, space occupying mass, or other acute intracranial pathology is demonstrated. 2. Chronic small vessel ischemic disease. 3. Diffuse cerebral atrophy. XR Chest, 1 View CLINICAL HISTORY: Reason for exam: Weakness. TECHNIQUE: Frontal view of the chest. COMPARISON: 01/13/2025. FINDINGS: Exam is limited. Lungs: No consolidation. Pleural space: No pleural effusion is seen. No pneumothorax. Heart: Heart is top normal in size.. Mediastinum: There is mild uncoiling of thoracic aorta.. Bones/joints: Grossly unremarkable.. IMPRESSION: No acute pulmonary disease. Medications Administered ER Medications Given: None ECG Rate (beats per minute): 58 Rhythm: sinus bradycardia Findings: + RBBB Comparison ECG Date: from (February 08, 2025) Change: the following changes noted (premature supraventricular complexes no longer present) Code Status & VTE Plan Code Status Full PG Care Time/CCT Total # of Minutes Spent Total Time Spent with Patient: Total time spent is greater than 50% in coordination of care (as documented) at patient's floor/unit and/or counseling patient: Coding Level of Care Code 08077 INT INP/OBS CARE MIN Diagnoses Diastolic CHF due to valvular disease I50.30; I38 Elevated serum creatinine R79.89 Mitral stenosis I05.0 Hypertension I10 Cirrhosis of liver K74.60
[2025-03-13 04:52] LABS: Total Protein Urine Random 74.6 mg/dl (0-11.9)
[2025-03-13 04:57] LABS: Protein Creatinine Ratio Urine 0.5 (0-0.2)
[2025-03-13] MEDS ORDERED: PHARMACY GLYCEMIC MGMT CONSULT PRN (05:35)
[2025-03-13] MEDS ORDERED: GLUCAGON FOR INJ 1 MG VIAL SQ PRN (05:35)
[2025-03-13] MEDS ORDERED: CARBOHYDRATES FOR HYPOGLYCEMIA PO PRN (05:35)
[2025-03-13] MEDS ORDERED: GLUCOSE 40% GEL 15 GM TUBE PO PRN (05:35)
[2025-03-13] MEDS ORDERED: GLUCOSE 10 TAB/TUBE PO PRN (05:35)
[2025-03-13] MEDS ORDERED: DEXTROSE 50% 50 ML SYRINGE IV PRN (05:35)
[2025-03-13] MEDS: LEVOTHYROXINE SODIUM 50 MCG TABLET PO SCH (06:21)
[2025-03-13] MEDS ORDERED: NON-FORMULARY MEDICATION (Insulin Glargine [Lantus Solostar U-100 Insulin] 100 unit/mL (3 SQ SCH (09:00)
[2025-03-13] MEDS ORDERED: FUROSEMIDE 40 MG TAB PO SCH (09:00)
[2025-03-13] MEDS: INSULIN ASPART PER UNIT CHARGE SC SCH (09:05)
[2025-03-13] MEDS: ASPIRIN 81 MG ECTAB PO SCH (09:06)
[2025-03-13] MEDS: HEPARIN SOD 5,000 UNIT/0.5 ML VIAL SQ SCH (09:06)
[2025-03-13] MEDS: SPIRONOLACTONE 25 MG TAB PO SCH (09:07)
[2025-03-13 09:18] LABS: Hematocrit (blood only) 33.3 % (37.0-47.0); Hemoglobin 10.7 g/dl (12.0-16.0); Mean Corpuscular Hemoglobin 30.5 pg (25.0-34.0); Mean Corpuscular Volume 94.9 fL (80.0-100.0); Platelet Count 53 K/uL (130-400); RDW Standard Deviation 53.1 fL (36.4-46.3); Red Blood Count 3.51 M/uL (4.20-5.40); White Blood Count 4.95 K/ul (4.8-10.8)
[2025-03-13 09:33] LABS: Alanine Aminotransferase 15.0 U/L (7-52); Alkaline Phosphatase 49.0 U/L (34-104); Anion Gap 9.0 (3-11); Bilirubin,Total 1.8 mg/dl (0.2-1.0); Blood Urea Nitrogen 42.0 mg/dl (6-23); Calcium 9.5 mg/dl (8.6-10.3); Carbon Dioxide 26.0 mmol/L (21-32); Chloride 106.0 mmol/L (98-107); Creatinine Clr Calc Pharmacy 23.6 ml/min; Glucose 176.0 mg/dl (70-99(Fasting)); Potassium 4.2 mmol/L (3.5-5.1); Sodium 141.0 mmol/L (136-145); Total Protein 6.2 gm/dl (6.0-8.3)
--- NOTE | 2025-03-13 10:28 | Cardiology Consultation ---
Date of Consultation March 13, 2025 Assessment & Plan (1) Diastolic CHF due to valvular disease: (2) Mitral stenosis: (3) Elevated serum creatinine: (4) Cirrhosis of liver: (5) Hypertension: Plan Pmhx: 1.s/p TAVR - 23mm Sultana Kevan III valve 10/16/2021 2. Cardiac catheterization 08/08/2021 without obstructive CAD - mild disease in RCA and Circumflex but other coronary arteries without disease. 3. ANNA 03/09/2025 - Normal LVF, EF 60-65%, severely dilated LA, 23 mm Kevan bioprosthetic transcatheter aortic valve. The valve appears to be well seated without evidence of valvular or paravalvular stenosis or regurgitation. There is mitral annular calcification as well as a calcified mitral valvewith severe mitral stenosis and mild mitral regurgitation. Mitral valve area by planimetry 1.3 cm2. 3B. Diastolic CHF/HFpEF 4. VARGAS cirrhosis s/p TIPS 5. DMII 6. 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 Hepatic encephalopathy Ms. Regalado's mentation has improved today. She does have an elevated bnp but it is significantly better than at the time of her discharge previously. Her creatinine was mildly elevated on admission here with a creatinine of 2.4, had been 1.8 on discharge from [facility]. As I discussed with Ms. Regalado, we may need to accept some reduction in kidney function to keep her from having heart failure symptoms. Recommend she continue with daily 40 mg furosemide and spironolactone. Will await nephrology input on valsartan going forward but from a cardiology perspective, it can be discontinued. I have reached out to the attending rough planer tender seeing Ms. Regalado at [facility] concerning her mitral valve and am awaiting a reply. I don't see that a decision was made during her stay one way or the other on intervention on her mitral valve which is severely stenosed. Her EF remained normal on her ANNA and her TAVR was well seated. She would probably benefit from a palliative care consult given that this is her third hospitalization in the course of the last month and she has multiple progressive comorbidities. History of Present Illness Attending Physician: Kip Layton History of Present Illness Ms. Regalado presented to the emergency department last night with altered mental status. She had been discharged from [facility] 03/10 where she was treated for heart failure exacerbation. She denies shortness of breath or chest pain. No edema. She feels her mentation is improved this morning. Allergies Allergy/AdvReac Type Severity Reaction Status Date / Time bacitracin Allergy Mild REDNESS/MONICA Verified 02/08/25 16:36 H neomycin Allergy Mild REDNESS Verified 02/08/25 16:36 AND RASH canagliflozin [From Invokana] Allergy Palpitation Unverified 02/08/25 16:36 s glipizide Allergy Rash Unverified 02/08/25 16:36 gluten Allergy Verified 02/08/25 16:36 Home Medications Medication Instructions Recorded Confirmed Type calcium 600 mg (as 1 cap PO PM 07/03/19 03/13/25 History carbonate)-vitamin D3 10 mcg (400 unit) capsule ferrous sulfate 325 mg (65 mg 325 mg PO QAM 07/03/19 03/13/25 History iron) tablet multivitamin (Multiple Vitamins 1 tab PO QAM 07/03/19 03/13/25 History tablet) vitamin B complex 1 cap PO QAM 07/03/19 03/13/25 History aspirin 81 mg tablet,delayed 81 mg PO DAILY 10/28/21 03/13/25 History release (Adult Low Dose Aspirin) blood sugar diagnostic (Accu-Chek #10 ea 06/01/22 02/19/25 History SmartView Test Strips) biotin 5,000 mcg disintegrating 10,000 mcg PO DAILY 06/10/22 03/13/25 History tablet levothyroxine 50 mcg tablet 50 mcg PO QAM #90 tabs 06/02/24 03/13/25 Rx spironolactone 25 mg tablet 25 mg PO QAM #90 tabs 06/12/24 03/13/25 Rx omeprazole 40 mg capsule,delayed 40 mg PO QAM #90 caps 06/26/24 03/13/25 Rx release insulin lispro 100 unit/mL See Rx Instructions .Route .COMPLEX 12/05/24 03/13/25 History subcutaneous pen rifaximin 550 mg tablet (Xifaxan) 550 mg PO BID 12/05/24 03/13/25 History denosumab 60 mg/mL subcutaneous 60 mg subcut DIRECTED 02/08/25 03/13/25 History syringe (Prolia) insulin glargine 100 unit/mL (3 8 unit (0.08 mL) subcut QAM #0 mL 02/14/25 03/13/25 Rx mL) subcutaneous pen (Lantus Solostar U-100 Insulin) carvedilol 6.25 mg tablet 6.25 mg PO BID 02/19/25 03/13/25 History glucagon 3 mg/actuation nasal spray 3 mg intranasal .qd #1 ea 02/19/25 03/13/25 Rx zinc gluconate 30 mg tablet 30 mg PO .3 times weekly 02/19/25 03/13/25 History amoxicillin 500 mg capsule See Rx Instructions .Route .COMPLEX 03/13/25 03/13/25 History atorvastatin 40 mg tablet 40 mg PO HS 03/13/25 03/13/25 History furosemide 20 mg tablet 40 mg PO QAM 03/13/25 03/13/25 History valsartan 80 mg tablet 80 mg PO QAM 03/13/25 03/13/25 History Patient History Medical History SVT (supraventricular tachycardia) Chronic diastolic heart failure Atrophy of liver Pancytopenia Hypoalbuminemia Hepatic encephalopathy Hypomagnesemia Hypokalemia Acute kidney injury superimposed on CKD Hyperglycemia due to type 2 diabetes mellitus Hepatic encephalopathy Encephalopathy acute pt had a stomach bug that lead to encephalopthy per pt. 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 Celiac disease GERD (gastroesophageal reflux disease) Nonalcoholic fatty liver disease Basal cell carcinoma of left side of nose Malignant melanoma of skin of right ear Anemia Hypothyroidism Hypertension Hyperlipidemia Aortic stenosis moderate 2020 SVT (supraventricular tachycardia) Radial head fracture Surgical History S/P TAVR (transcatheter aortic valve replacement) 10/16/21 S/P TIPS (transjugular intrahepatic portosystemic shunt) Hx of abdominal surgery stomach nodules 1992 History of colonoscopy with polypectomy History of bilateral salpingo-oophorectomy (BSO) @ [facility] 12/2018 History of section x2 ; History of hysterectomy 1991 History of dilatation and curettage S/P foot surgery, left x3--neuroma removal , , History of esophagogastroduodenoscopy (EGD) 01/02/19 and 01/13/20 History of facial surgery melanoma removal of right side of face by ear Status post Mohs surgery for basal cell carcinoma remove off nose History of wisdom tooth extraction 1974 History of adenoidectomy Family History Grandmother (Maternal) Family history of diabetes mellitus Mother Hypertension Diabetes Dyslipidemia Father Hypertension Myocardial infarction, Onset Age: 58 Brother Diabetes Other No family history of adverse response to anesthesia Social History Smoking Status: Former smoker Tobacco Type: Cigarettes Age Started Using Tobacco: 20; Age Quit Using Tobacco: 49; packs per day: 0.75; Second Hand Exposure: No; Do You Dip or Chew Tobacco: No; Tobacco Cessation Education Requested by Patient: No Hx Alcohol Use: No Hx Substance Use: No Preferred Language: Slovak Communication Ability: Effective Visual Impairment: No Limitations Hearing Ability: Normal Multimedia Journalist Required: No Beliefs That Will Affect Care: None marital status: Current Living Situation: Spouse Current Living Situation Comment: With and two grown children current occupational status: retired Other Information That Helps Us Care for You: No Feels Safe at Home: Yes Safety Concerns: Feels Safe At This Time Diet: gluten free caffeine: No Physical Activity Frequency: Does not Exercise Seatbelt Use: always Do you think of yourself as: straight/heterosexual Gender Identity: Female Assistive Devices: Walker Review of Systems Review of Systems: All systems reviewed & are unremarkable except as noted in HPI & below Physical Exam Constitutional: WD/WN, vitals as above Respiratory: normal respiratory effort, lungs clear to auscultation Cardiovascular: Rate/Rhythm: regular rate and regular rhythm Heart Sounds: + murmur (diastolic apex 3/6) Extremities: no edema Results & Data Vital Signs (Past 12 Hours) Vital Signs Temp Pulse Pulse Resp BP BP BP 03/13/25 09:13 119/64 03/13/25 09:10 36.4 C L 71 16 103/63 03/13/25 08:43 59 L 03/13/25 06:07 61 03/13/25 06:00 03/13/25 05:36 36.6 C 58 L 18 182/62 H 03/13/25 05:14 59 L 24 149/71 H 03/13/25 04:00 61 22 135/59 L 03/13/25 02:53 57 L 16 158/67 H 03/13/25 01:28 58 L 03/13/25 01:04 57 L 13 165/63 H 03/13/25 00:40 57 L 23 144/56 H 03/12/25 23:29 63 13 149/61 H 03/12/25 22:30 63 15 180/72 H Pulse Ox O2 Del Method 03/13/25 09:13 03/13/25 09:10 90 Room Air 03/13/25 08:43 03/13/25 06:07 03/13/25 06:00 Room Air 03/13/25 05:36 99 Room Air 03/13/25 05:14 98 Room Air 03/13/25 04:00 99 Room Air 03/13/25 02:53 98 Room Air 03/13/25 01:28 03/13/25 01:04 99 Room Air 03/13/25 00:40 99 Room Air 03/12/25 23:29 98 03/12/25 22:30 100 Room Air
--- NOTE | 2025-03-13 10:39 | Nephrology Consultation ---
Date of Consultation March 13, 2025 Assessment & Plan (1) Acute kidney injury: (2) Stage 3b chronic kidney disease: (3) Hypertension: (4) Anemia: (5) Mitral stenosis: (6) Diastolic CHF due to valvular disease: Plan 69 year old F with stage IIIb CKD, b/l cr around 1.5 to 1.6 mg/dl, cirrhosis with VARGAS s /p TIPS, HFpEF with severe mitral stenosis, admitted to the hospital yesterday with acute change in mental status. Admission lab was notable for ZAY, creatinine 2.4 mg/dl and slow decline in kidney function with creatinine staying around 1.9-2.0 mg/dl over last 1 month. Recent multiple hospitalization for acute congestive heart failure with severe mitral mitral stenosis. Mental status improved. She reports overall feeling generally weak and exhausted. Volume status seems to have improved with Lasix and spironolactone. Repeat labs this morning showed slight improvement in creatinine to 2.1 mg/dl. Blood pressure stable. Volume status acceptable. --Continue on Lasix and spironolactone current dose, accurate intake and output, aim for slightly net negative as she is pretty close to her baseline weight. --Ultimately she may need intervention for mitral stenosis sooner than later, which could be contributing to the repeated episodes of congestive heart failure, volume overload as well as acute kidney injury Thank you for allowing me to participate in your patient's care. It was a pleasure to see Audrey. History of Present Illness Reason for Consultation: ZAY, stage 3b CKD, volume overload Attending Physician: Kip Layton History of Present Illness Ms. Audrey Regalado is a 69 year old F with PMH significant for stage IIIb CKD, cirrhosis with VARGAS s /p TIPS, HFpEF with severe mitral stenosis, admitted to the hospital yesterday with generally in mental status, ZAY after discharge from [facility] just 2 days prior. Nephrology consult requested for love agee of acute kidney injury and volume overload with h/o CKD. EMR records were reviewed in detail during patient's visit. Audrey was brought to ER yesterday with concern for changes in mental status. She had multiple hospitalization recently. She was admitted at [facility] from 02/08- 2024 due to acute CHF with severe mitral stenosis. She was diuresed with IV Lasix and on discharge she was back to her dry weight and diuretic was discontinued which was then again restarted by her PCP on 02/19 as she was gaining weight. She was also started on Entresto by her cardiology team and she reports overall she did not feel well while on Entresto. She was then admitted to [facility] from 03/05 -03/10 as she was found to have significant weight gain on outpatient cardiology visit and directly admitted to [place] with the concern that she may need intervention for severe mitral stenosis. Entresto was stopped and she was started back on Lasix 40 mg and spironolactone 25 mg daily was continued. At the time thoracic surgery did not feel she needs intervention for mitral stenosis yet after she was evaluated by a ANNA. She came back home on 03/10/2025 but clinically she declined and became more confused and generally weak. Over last 1 month her kidney function slightly declining and on admission yesterday she was noted to have ZAY with creatinine 2.4 mg/dl., LFTs were acceptable, ammonia level was 52. Electrolyte has been acceptable. She reports voiding normally and responding to diuretics. Stage 3B CKD, b/l cr 1.5-1.7 mg/dl, secondary to residual renal impairment from prior ZAY and possible contribution from hepatorenal syndrome. Urinalysis unremarkable with no proteinuria hematuria. Previously tried Jardiance but could not tolerate it, also had adverse effects including palpitation with Invokana. She was reluctant to consider Farxiga with h/o UTI. Recent renal imaging was unremarkable. No history of chronic NSAID or PPI use. Has lower extremity swelling. Nonsmoker, no F/H of CKD or ESRD. Hypertension well controlled, spironolactone 25 and Carvedilol. Previously lisinopril was stopped as per recommendation from Gastroenterology. no history of CAD. Had TAVR in Sep 2021 at [facility]. DM for almost 30 years, well controlled, no retinopathy, Off of metformin. Could not tolerate Jardiance before. Has h/o cirrhosis with ? VARGAS diagnosed few year ago, s/p TIPS in January 2021, s she was frequently getting encephalopathic. Since the TIPS procedure she has been doing well, last paracentesis was in 02/27/2021. Was following with [facility] for liver transplant, she was taken off of list. Also diagnosed with celiac disease, has diarrhea off and on. Has iron deficiency anemia, has been stable. Audrey denies any shortness of breath, volume status seem to have improved. But she feels extremely fatigued and exhausted, partly could be due to the fact that she did not have any sleep last night. Allergies Allergy/AdvReac Type Severity Reaction Status Date / Time bacitracin Allergy Mild REDNESS/MONICA Verified 02/08/25 16:36 H neomycin Allergy Mild REDNESS Verified 02/08/25 16:36 AND RASH canagliflozin [From Invokana] Allergy Palpitation Unverified 02/08/25 16:36 s glipizide Allergy Rash Unverified 02/08/25 16:36 gluten Allergy Verified 02/08/25 16:36 Home Medications Medication Instructions Recorded Confirmed Type calcium 600 mg (as 1 cap PO PM 07/03/19 03/13/25 History carbonate)-vitamin D3 10 mcg (400 unit) capsule ferrous sulfate 325 mg (65 mg 325 mg PO QAM 07/03/19 03/13/25 History iron) tablet multivitamin (Multiple Vitamins 1 tab PO QAM 07/03/19 03/13/25 History tablet) vitamin B complex 1 cap PO QAM 07/03/19 03/13/25 History aspirin 81 mg tablet,delayed 81 mg PO DAILY 10/28/21 03/13/25 History release (Adult Low Dose Aspirin) blood sugar diagnostic (Accu-Chek #10 ea 06/01/22 02/19/25 History SmartView Test Strips) biotin 5,000 mcg disintegrating 10,000 mcg PO DAILY 06/10/22 03/13/25 History tablet levothyroxine 50 mcg tablet 50 mcg PO QAM #90 tabs 06/02/24 03/13/25 Rx spironolactone 25 mg tablet 25 mg PO QAM #90 tabs 06/12/24 03/13/25 Rx omeprazole 40 mg capsule,delayed 40 mg PO QAM #90 caps 06/26/24 03/13/25 Rx release insulin lispro 100 unit/mL See Rx Instructions .Route .COMPLEX 12/05/24 03/13/25 History subcutaneous pen rifaximin 550 mg tablet (Xifaxan) 550 mg PO BID 12/05/24 03/13/25 History denosumab 60 mg/mL subcutaneous 60 mg subcut DIRECTED 02/08/25 03/13/25 History syringe (Prolia) insulin glargine 100 unit/mL (3 8 unit (0.08 mL) subcut QAM #0 mL 02/14/25 03/13/25 Rx mL) subcutaneous pen (Lantus Solostar U-100 Insulin) carvedilol 6.25 mg tablet 6.25 mg PO BID 02/19/25 03/13/25 History glucagon 3 mg/actuation nasal spray 3 mg intranasal .qd #1 ea 02/19/25 03/13/25 Rx zinc gluconate 30 mg tablet 30 mg PO .3 times weekly 02/19/25 03/13/25 History amoxicillin 500 mg capsule See Rx Instructions .Route .COMPLEX 03/13/25 03/13/25 History atorvastatin 40 mg tablet 40 mg PO HS 03/13/25 03/13/25 History furosemide 20 mg tablet 40 mg PO QAM 03/13/25 03/13/25 History valsartan 80 mg tablet 80 mg PO QAM 03/13/25 03/13/25 History Patient History Medical History SVT (supraventricular tachycardia) Chronic diastolic heart failure Atrophy of liver Pancytopenia Hypoalbuminemia Hepatic encephalopathy Hypomagnesemia Hypokalemia Acute kidney injury superimposed on CKD Hyperglycemia due to type 2 diabetes mellitus Hepatic encephalopathy Encephalopathy acute pt had a stomach bug that lead to encephalopthy per pt. 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 Celiac disease GERD (gastroesophageal reflux disease) Nonalcoholic fatty liver disease Basal cell carcinoma of left side of nose Malignant melanoma of skin of right ear Anemia Hypothyroidism Hypertension Hyperlipidemia Aortic stenosis moderate 2020 SVT (supraventricular tachycardia) Radial head fracture Surgical History S/P TAVR (transcatheter aortic valve replacement) 10/16/21 S/P TIPS (transjugular intrahepatic portosystemic shunt) Hx of abdominal surgery stomach nodules 1992 History of colonoscopy with polypectomy History of bilateral salpingo-oophorectomy (BSO) @ [facility] 12/2018 History of section x2 ; History of hysterectomy 1990 History of dilatation and curettage S/P foot surgery, left x3--neuroma removal , , History of esophagogastroduodenoscopy (EGD) 01/02/19 and 01/13/20 History of facial surgery melanoma removal of right side of face by ear Status post Mohs surgery for basal cell carcinoma remove off nose History of wisdom tooth extraction 1974 History of adenoidectomy Family History Grandmother (Maternal) Family history of diabetes mellitus Mother Hypertension Diabetes Dyslipidemia Father Hypertension Myocardial infarction, Onset Age: 58 Brother Diabetes Other No family history of adverse response to anesthesia Social History Smoking Status: Former smoker Tobacco Type: Cigarettes Age Started Using Tobacco: 20; Age Quit Using Tobacco: 49; packs per day: 0.75; Second Hand Exposure: No; Do You Dip or Chew Tobacco: No; Tobacco Cessation Education Requested by Patient: No Hx Alcohol Use: No Hx Substance Use: No Preferred Language: Nigerien Communication Ability: Effective Visual Impairment: No Limitations Hearing Ability: Normal Biologics Specialist Required: No Beliefs That Will Affect Care: None marital status: Current Living Situation: Spouse Current Living Situation Comment: With and two grown children current occupational status: retired Other Information That Helps Us Care for You: No Feels Safe at Home: Yes Safety Concerns: Feels Safe At This Time Diet: gluten free caffeine: No Physical Activity Frequency: Does not Exercise Seatbelt Use: always Do you think of yourself as: straight/heterosexual Gender Identity: Female Assistive Devices: Walker Review of Systems Review of Systems: Detailed review of system was done and pertinent positives and negatives are mentioned above. Physical Exam Constitutional: WD/WN, vitals as above + ill appearing; no acute distress Eyes: + anicteric sclerae Neck: normal visual inspection Respiratory: no respiratory distress Auscultation: lungs clear to auscultation bilaterally Cardiovascular: Rate/Rhythm: regular rate and regular rhythm Heart Sounds: + murmur Extremities: no edema Gastrointestinal (Abdomen): Inspection/Auscultation: abdomen normal to inspection Musculoskeletal: Extremities: extremities normal to inspection Skin: no rashes, warm and dry Neurologic: no focal motor deficits and not confused Psychiatric: Orientation: alert and oriented x 3 Affect: euthymic affect Results & Data Vital Signs (Past 12 Hours) Vital Signs Temp Pulse Pulse Resp BP BP BP 03/13/25 09:13 119/64 03/13/25 09:10 36.4 C L 71 16 103/63 03/13/25 08:43 59 L 03/13/25 06:07 61 03/13/25 06:00 03/13/25 05:36 36.6 C 58 L 18 182/62 H 03/13/25 05:14 59 L 24 149/71 H 03/13/25 04:00 61 22 135/59 L 03/13/25 02:53 57 L 16 158/67 H 03/13/25 01:28 58 L 03/13/25 01:04 57 L 13 165/63 H 03/13/25 00:40 57 L 23 144/56 H 03/12/25 23:29 63 13 149/61 H Pulse Ox O2 Del Method 03/13/25 09:13 03/13/25 09:10 90 Room Air 03/13/25 08:43 03/13/25 06:07 03/13/25 06:00 Room Air 03/13/25 05:36 99 Room Air 03/13/25 05:14 98 Room Air 03/13/25 04:00 99 Room Air 03/13/25 02:53 98 Room Air 03/13/25 01:28 03/13/25 01:04 99 Room Air 03/13/25 00:40 99 Room Air 03/12/25 23:29 98 PG Care Time/CCT Total # of Minutes Spent Total Time Spent with Patient: Total time spent is greater than 50% in coordination of care (as documented) at patient's floor/unit and/or counseling patient: Coding Level of Care Code 45312 INT INP/OBS CARE 3/75MIN Diagnoses Acute kidney injury N17.9 Stage 3b chronic kidney disease N18.32 Hypertension I10 Anemia D64.9 Mitral stenosis I05.0 Diastolic CHF due to valvular disease I50.30; I38
[2025-03-13] MEDS: ONDANSETRON INJ 2 MG/ML 2 ML VIAL IV PRN (11:24)
--- NOTE | 2025-03-13 11:42 | Electrocardiogram Report ---
Test Reason : Blood Pressure : */* mmHG Vent. Rate : 58 BPM Atrial Rate : 58 BPM P-R Int : 192 ms QRS Dur : 148 ms QT Int : 484 ms P-R-T Axes : 72 55 24 degrees QTcB Int : 475 ms Sinus bradycardia Right bundle branch block Abnormal ECG When compared with ECG of 08-Feb-2025 14:34, Premature supraventricular complexes are no longer Present Confirmed by Kurt Plaza ([id number]) on 03/13/2025 11:42:27 AM Referred By: REFERRED SELF Confirmed By: Kurt Plaza
--- NOTE | 2025-03-13 14:22 | Pharmacy Report ---
Pharmacy Glycemic Short Note 2 - Date of Service March 13, 2025 - Glycemic Short BSG Results (Last 24 hours): 03/12/25 03/13/25 03/13/25 21:18 07:37 08:50 Glucose 73 176 H POC Glucose 102 H 03/13/25 11:00 Glucose POC Glucose 154 H OUTPATIENT ANTIDIABETIC REGIMEN: * Lantus 8 units SQ daily * Novolog 18 units SQ with breakfast, 12 units with lunch, 14 units with dinner. HbA1c is ordered for tomorrow morning. ASSESSMENT: * CS is a 69 year old female who was admitted this morning for confusion and lethargy due to suspected hepatic encephalopathy. BSG on admit was 73mg/dL via lab draw. Fasting AM BSG was 102mg/dL. It is unclear when she took her last dose of Lantus. * Will not add Lantus at this time, but will monitor for need to resume. A weight based bolus insulin regimen with a stress of 2 was started at breakfast today. PLAN FOR INPATIENT GLYCEMIC CONTROL: * Hold outpatient diabetes medications * Basal insulin * hold for now, will reassess need with additional blood glucose readings * Bolus insulin * NovoLog per scale ACHS or Q6hrs while NPO * Goal Range: Low 120 mg/dL - High 150 mg/dL * Correction Factor: 35 mg/dL/unit * Nutritional / Prandial insulin per carb ratio of 1 unit per 12 grams CHO consumed
--- NOTE | 2025-03-13 14:55 | Electrocardiogram Report ---
Test Reason : Blood Pressure : */* mmHG Vent. Rate : 59 BPM Atrial Rate : 59 BPM P-R Int : 172 ms QRS Dur : 134 ms QT Int : 496 ms P-R-T Axes : 67 52 31 degrees QTcB Int : 491 ms Sinus bradycardia Right bundle branch block Abnormal ECG When compared with ECG of 12-Mar-2025 21:22, No significant change was found Confirmed by Kurt Plaza ([id number]) on 03/13/2025 2:55:10 PM Referred By: REFERRED SELF Confirmed By: Kurt Plaza
[2025-03-13] MEDS: ATORVASTATIN 40 MG TAB PO SCH (20:07)
[2025-03-14 07:22] VITALS: RESP 18
[2025-03-14 07:22] LABS: Hematocrit (blood only) 30.9 % (37.0-47.0); Hemoglobin 10.2 g/dl (12.0-16.0); Mean Corpuscular Hemoglobin 30.9 pg (25.0-34.0); Mean Corpuscular Volume 93.6 fL (80.0-100.0); Platelet Count 43 K/uL (130-400); RDW Standard Deviation 53.0 fL (36.4-46.3); Red Blood Count 3.30 M/uL (4.20-5.40); White Blood Count 3.55 K/ul (4.8-10.8)
[2025-03-14 07:32] LABS: Hemoglobin A1C 5.8 % (4.5-5.6)
[2025-03-14 07:36] LABS: Alanine Aminotransferase 13.0 U/L (7-52); Albumin Globulin Ratio 1.2 (0.9-2); Alkaline Phosphatase 45.0 U/L (34-104); Anion Gap 7.0 (3-11); Bilirubin,Total 1.6 mg/dl (0.2-1.0); Blood Urea Nitrogen 42.0 mg/dl (6-23); Calcium 9.1 mg/dl (8.6-10.3); Carbon Dioxide 26.0 mmol/L (21-32); Chloride 109.0 mmol/L (98-107); Creatinine Clr Calc Pharmacy 23.0 ml/min; Globulin 2.6 gm/dl (2.5-4.0); Glucose 115.0 mg/dl (70-99(Fasting)); Potassium 4.2 mmol/L (3.5-5.1); Sodium 142.0 mmol/L (136-145); Total Protein 5.7 gm/dl (6.0-8.3)
[2025-03-14] MEDS: FUROSEMIDE 40 MG TAB PO SCH (08:46)
[2025-03-14] MEDS: LANTUS PER UNIT CHARGE SC SCH (08:52)
--- NOTE | 2025-03-14 10:13 | Nephrology Progress Note ---
Date of Service March 14, 2025 Assessment & Plan (1) Acute kidney injury: (2) Stage 3b chronic kidney disease: (3) Hypertension: (4) Anemia: (5) Mitral stenosis: (6) Diastolic CHF due to valvular disease: Plan 69 year old F with stage IIIb CKD, b/l cr around 1.5 to 1.6 mg/dl, cirrhosis with VARGAS s /p TIPS, HFpEF with severe mitral stenosis, admitted to the hospital yesterday with acute change in mental status. Admission lab was notable for ZAY, creatinine 2.4 mg/dl and slow decline in kidney function with creatinine staying around 1.9-2.0 mg/dl over last 1 month. Recent multiple hospitalization for acute congestive heart failure with severe mitral mitral stenosis. Mental status improved. She reports overall feeling better. Volume status seems to have improved with Lasix and spironolactone. Labs this morning showed relatively stable kidney function, electrolyte acceptable. Blood pressure slightly elevated. --Continue on Lasix and spironolactone current dose, accurate intake and output, aim for slightly net negative as she is pretty close to her baseline weight. She will need close monitoring of kidney function and electrolyte as well as her volume status. --If discharge anticipated later today, we will see her in office soon few weeks. --Ultimately she may need intervention for mitral stenosis sooner than later, which could be contributing to the repeated episodes of congestive heart failure, volume overload as well as acute kidney injury colton. Admission and Anticipated Discharge Date Admission Date: March 13, 2025 Yenifer Ventura was seen and evaluated this morning with her at bedside. She reports feeling about the same, was able to sleep well last night. Urine output has been decent, continuing on Lasix 40 and spironolactone. Volume status seems decent although still seems slightly volume overloaded. Kidney function staying relatively stable, electrolyte acceptable. Review of Systems Review of Systems: Detailed review of system was done and pertinent positives and negatives are mentioned above. Physical Exam Constitutional: WD/WN, vitals as above no acute distress Eyes: + anicteric sclerae Neck: normal visual inspection Respiratory: no respiratory distress Auscultation: + crackles (at b/l bases) Cardiovascular: Rate/Rhythm: regular rate and regular rhythm Heart Sounds: + murmur Extremities: no edema Skin: no rashes, warm and dry Neurologic: no focal motor deficits and not confused Psychiatric: Orientation: alert and oriented x 3 Affect: euthymic affect Results & Data Vital Signs (Past 12 Hours) Vital Signs Temp Pulse Pulse Pulse Resp BP BP 03/14/25 09:26 61 03/14/25 08:05 03/14/25 07:21 36.5 C 60 18 149/77 H 03/14/25 05:37 63 03/14/25 05:35 03/14/25 02:50 36.4 C L 65 16 125/64 03/13/25 23:14 36.7 C 64 16 114/65 Pulse Ox Pulse Ox O2 Del Method O2 Del Method 03/14/25 09:26 03/14/25 08:05 Room Air 03/14/25 07:21 96 Room Air 03/14/25 05:37 03/14/25 05:35 96 Room Air 03/14/25 02:50 96 Room Air 03/13/25 23:14 96 Room Air PG Care Time/CCT Total # of Minutes Spent Total Time Spent with Patient: Total time spent is greater than 50% in coordination of care (as documented) at patient's floor/unit and/or counseling patient: Coding Level of Care Code 62568 SUB INP/OBS CARE 2/35MIN Diagnoses Acute kidney injury N17.9 Stage 3b chronic kidney disease N18.32 Hypertension I10 Anemia D64.9 Mitral stenosis I05.0 Diastolic CHF due to valvular disease I50.30; I38
[2025-03-14 10:47] VITALS: TEMP 97.9; O2SAT 98
--- NOTE | 2025-03-14 11:51 | Discharge Summary ---
Discharge Summary Date of Service March 14, 2025 Principal Dx & Hospital Course #1 = Principal Diagnosis (1) Diastolic CHF due to valvular disease: (2) Elevated serum creatinine: (3) Mitral stenosis: (4) Hypertension: (5) Cirrhosis of liver: Plan 69 year old female With her liver, heart and now renal function increasing effected consider palliative care consult for goals of care discussion but urgency this needs to be performed as inpatient #Suspected hepatic encephalopathy / altered mental status / liver cirrhosis Asterixis on exam Ammonia level pending although even if this is low this remains the most likely diagnosis as she is already mostly resolved therefore will avoid further laxatives at this time Continue MiraLAX and rifaximin #Elevated Cr / CKD stage G4/A? Below threshold for ZAY although unknown most recent Cr levels at [facility] Only new medication is valsartan from [place] therefore will discontinue this as she also hasn't been able to tolerated Entresto therefore AceI/ARBs may not be tolerated for management of her BP Protein/Cr ratio added to UA with 2+ protein noted Consult nephrology #Chronic diastolic heart failure with severe mitral stenosis Evaluated with ANNA at [facility] although I am unclear on the outcome of this, will consult cardiology if transfer is an option for valve replacement once renal function improves Otherwise it appears she doesn't tolerate being off Lasix and spironolactone therefore will continue these as she currently appears euvolemic and I presume the valsartan rather than over diuresis caused her elevated Cr above Continue Lasix 40mg PO daily and spironolactone, consider reduction in Lasix if continued worsening of Cr #GERD Switch omeprazole for pantoprazole per hospital formulary #Hypothyroidism TSH WNL Continue levothyroxine 50 mcg PO daily VTE Prophylaxis - heparin 5000 units SQ BID Disposition - admit to med/tele Admission HPI Per Admitting Provider Audrey Fabricio is a 69 year old female with VARGAS cirrhosis /p TIPS, HFpEF with severe mitral stenosis, celiacs disease, who presents to the ER with altered mental status after recent discharge from [facility] on March 10. She reports increasing confusion since she was discharged. She has been taking medications as prescribed. Using MiraLAX to aim for 2 bowel movements a day which has been regular for her. She denies any confusion at the [place]. Her confusion has been generalized with waking up this morning and not knowing herself or her name, she couldn't answer basic questions. She was taking her glucose level x4/day with none below 100. She was hospitalized at [facility] from February 08 - 2024 due to acute congestive heart failure with severe mitral stenosis. She was diuresed with Lasix 40mg on the first day then 20mg daily after this. Reportedly she improved back to her dry weight while in hospital. Lasix was not continued on discharge but started by her PCP as she started gaining weight again on February 19. She was followed up by cardiology on March 05 and despite restarting on Lasix she was gaining weight again therefore decision was made for her to go to [place] as she could be evaluated for mitral valve surgery while there. She was admitted to [facility] from March 05 - 2024 and diuresed again with intravenous Lasix. Unclear on doses and labs at this time as I do not have access to these records on admission. Her weight has been stable since discharge at 144-145lb. Discharge Plan Discharge Items Patient Disposition: Home - Self-Care Reason For Visit: HEPATIC ENCEPHALOPATHY Discharge Diagnosis: hepatic encephalopathy Condition on Discharge: Serious Activity: Resume your previous activity Non-emergency contact: Primary Care Provider Call non-emergency contact if: you have any medication questions Follow-up/Referrals: Jarrod Borges MD [Primary Care Provider] - Diet: Carb Count or DM1, Gluten Free, Heart Healthy and Low Sodium (2gm) Addtl Attending Provider Instructions: Continue on Lasix and spironolactone current dose, Recommend follow up with [facility] and [facility] in next few weeks Recommend intervention for mitral stenosis sooner than later Pending Studies at Discharge: No Stand-Alone Forms: My [facility], Smoking Cessation Medications and DC Order Prescriptions: Continued levothyroxine 50 mcg tablet 50 mcg PO QAM Qty: 90 3RF spironolactone 25 mg tablet 25 mg PO QAM Qty: 90 3RF omeprazole 40 mg capsule,delayed release(DR/EC) 40 mg PO QAM Qty: 90 3RF ferrous sulfate 325 mg (65 mg iron) tablet 325 mg PO QAM calcium carbonate-vitamin D3 600 mg(1,500mg) -400 unit capsule 1 cap PO PM multivitamin [Multiple Vitamins] tablet 1 tab PO QAM vitamin B complex capsule 1 cap PO QAM biotin 5,000 mcg tablet,disintegrating 10,000 mcg PO DAILY aspirin [Adult Low Dose Aspirin] 81 mg tablet,delayed release (DR/EC) 81 mg PO DAILY insulin lispro 100 unit/mL insulin pen See Rx Instructions .ROUTE .COMPLEX Hold Instructions: Provider's Order Rx Instructions: take 18 units with breakfast, 12 units with lunch, and 14 units with dinner. Xifaxan 550 mg tablet 550 mg PO BID carvedilol 6.25 mg tablet 6.25 mg PO BID glucagon 3 mg/actuation spray,non-aerosol 3 mg intranasal .qd Qty: 1 11RF amoxicillin 500 mg capsule See Rx Instructions .ROUTE .COMPLEX Rx Instructions: TAKE 4 CAPSULES BY MOUTH INDICATED ONE HOUR BEFORE DENTAL AND OTHER PROCEDURES DIRECTED furosemide 20 mg tablet 40 mg PO QAM atorvastatin 40 mg tablet 40 mg PO HS Rx Instructions: Spouse verified by bottle label Prolia 60 mg/mL Syringe 60 mg SUBCUT DIRECTED Rx Instructions: Every 6 months insulin glargine [Lantus Solostar U-100 Insulin] 100 unit/mL (3 mL) insulin pen 8 unit SUBCUT QAM Qty: 0 0RF zinc gluconate 30 mg tablet 30 mg PO .3 times weekly Discontinued valsartan 80 mg tablet 80 mg PO QAM No Action (DME) Accu-Chek SmartView Test Strip Strip See Rx Instructions .ROUTE .MEDSUPPLY Qty: 10 Rx Instructions: As directed Discharge Orders: Discharge Order (Routine); Ordered 03/14/25 Ordered By: Kip Layton Admission Data Admit Date/Time: 03/13/25 03:51 Attending Provider: Kip Layton Admit Provider: Laurent Clayton Primary Care Provider: Jarrod Borges Other Providers: Laurent Clayton; Sarwat Rolle; Louise Hobbs Hospital Stay Data Consultations 03/13/25 04:03 ED Decision to Admit Stat 03/13/25 05:14 Consult Cardiology Routine Consult Nephrology Routine Diagnostic Imagining Performed 03/12/25 23:56 CT head/brain wo con Stat 03/13/25 01:13 MR brain wo con Stat Pending Results Patient Have Any Pending Studies at Discharge: No Discharge Instructions Given to Patient (Per Discharging Provider) Continue on Lasix and spironolactone current dose, Recommend follow up with [facility] and [facility] in next few weeks Recommend intervention for mitral stenosis sooner than later Coding Diagnoses Diastolic CHF due to valvular disease I50.30; I38 Elevated serum creatinine R79.89 Mitral stenosis I05.0 Hypertension I10 Cirrhosis of liver K74.60
[2025-03-14 12:17] VITALS: BP 125/64; PULSE 64
--- NOTE | 2025-03-16 18:00 | Communication Note ---
Date of Service: March 16, 2025
== END 2025-03-14 12:38 | disposition home or self-care (01) ==
LOC: 2S 21:09 → ED 21:09 → SUATTDRO 03-13 03:51 → 2S 03-13 05:14

== ENCOUNTER 2025-03-16 18:04 | Inpatient (IN) ==
--- NOTE | 2025-03-16 19:35 | Communication Note ---
Contacted by transfer center regarding direct admission for Audrey Regalado (1955). Patient was recently discharged from [facility] on 03/14. Shortly after getting home, she developed nausea and vomiting, and has been unable to keep down her solid foods and medications. History of liver cirrhosis, and recent admission for metabolic encephalopathy. We were contacted by Esther Edwards NP regarding direct admission; this was based on patient's inability to keep down her heart failure medications. Patient also exhibited a new ZAY on most recent lab work on 03/16 (creatinine increased from 1.85 -> 2.71 over the course of a 1 week period). Given her worsening mental state due to suspected encephalopathy, and inability to tolerate p.o. intake, patient's family expressed a strong desire for her to be directly admitted back to the hospital. Signed out to overnight team. Accepting physician: Dr. Sajan Mcgraw Admitting physician: Dr. Won Vieira Date of Service: March 16, 2025
--- NOTE | 2025-03-16 20:00 | History & Physical Report ---
Date of Service March 16, 2025 Assessment & Plan (1) Weakness: (2) Acute kidney injury: (3) Diastolic CHF due to valvular disease: (4) Acute alteration in mental status: (5) Cirrhosis of liver: (6) Thrombocytopenia: (7) Type 2 diabetes mellitus with diabetic chronic kidney disease: (8) Hypothyroidism: Plan #Weakness/fatigue/FTT in older patient/severe dehydration - pt AAO x 3.5 (baseline is AAO x 4), weakness, hard to get around do ADL's outside of hospital - decreased oral intake of food and fluids - aspiration risk (diet, minced and moist) #ZAY - AM labs ([facility]), 03/16 showed: BUN, 46; Cr, 2.71 (BUN/Cr ~ 17) - ordered LR, 1L, bolus; then start LR, 80 mL/hr, main fluids - AM BMP ordered - UA and Ur Cx, Blood Cx ordered #Cirrhosis/Hepatic encephalopathy - asterixis of l. hand noted on exam - ordered Urgent ammonia level, 137 --> ammonia level, AM, for 3 days ordered - continue rifaximin, 550 mg, PO, BID - lactulose, 30 g, PO, TID (pt stated before she didn't tolerate it, but started anyway) - 10/14/20 labs showed neg Hep B, neg Hep C, reactive Hep A (IgG/IgM combined) - CT-AP w/out contrast ordered, pending Chronic conditions #Diastolic CHF - AM labs ([facility]), 03/16 showed: BNP, 1095 (02/08) --> 1068 (03/16) - pt appears to be at baseline BNP level, no pedal edema, benign lung exam w/out crackles/rales #Cirrhosis/Pancytopenia (Thrombocytopenia/Anemia/Leukopenia) - Plts, 53; WBC, 3.62; Hgb, 11.7 outside labs ([facility]) - 03/14 labs: albumin, 3.1; TProt, 5.7 - AM CBC Code status: Full code Disposition: Med-Surg Tele VTE Prophylaxis: Heparin, 5000 U, SQ, BID ordered but held d/t platelet level FENGI: Diet, T2DM Carb-consistent, minced and moist mIV fluids, LR, 80 mL/hr Admission and Anticipated Discharge Date Admission Date: March 16, 2025 History of Present Illness Chief Complaint: Confusion/metabolic encephalopathy; N/V Primary Care Provider: Jarrod Borges MD Patient is a 69 yo F w/ a PMHx of cirrhosis, CKD-stage IV, diastolic CHF (d/t valvular dz), mitral regurgitation, hypothyroidism, HTN, T2DM, celiac disease, osteoporosis, VARGAS, presenting today as a direct admit after being discharged 2 days ago. Patient up to a month ago was able to do her ADL's normally but within the last month (since February 08) has had severe decrease of energy, increased fatigue, decreased oral intake of food and fluids. Allergies Allergy/AdvReac Type Severity Reaction Status Date / Time bacitracin Allergy Mild REDNESS/MONICA Verified 02/08/25 16:36 H neomycin Allergy Mild REDNESS Verified 02/08/25 16:36 AND RASH canagliflozin [From Invokana] Allergy Palpitation Unverified 02/08/25 16:36 s glipizide Allergy Rash Unverified 02/08/25 16:36 gluten Allergy Verified 02/08/25 16:36 Home Medications Medication Instructions Recorded Confirmed Type calcium 600 mg (as 1 cap PO PM 07/03/19 03/16/25 History carbonate)-vitamin D3 10 mcg (400 unit) capsule ferrous sulfate 325 mg (65 mg 325 mg PO QAM 07/03/19 03/16/25 History iron) tablet multivitamin (Multiple Vitamins 1 tab PO QAM 07/03/19 03/16/25 History tablet) vitamin B complex 1 cap PO QAM 07/03/19 03/16/25 History aspirin 81 mg tablet,delayed 81 mg PO DAILY 10/28/21 03/16/25 History release (Adult Low Dose Aspirin) blood sugar diagnostic (Accu-Chek #10 ea 06/01/22 02/19/25 History SmartView Test Strips) biotin 5,000 mcg disintegrating 10,000 mcg PO DAILY 06/10/22 03/16/25 History tablet levothyroxine 50 mcg tablet 50 mcg PO QAM #90 tabs 06/02/24 03/16/25 Rx spironolactone 25 mg tablet 25 mg PO QAM #90 tabs 06/12/24 03/16/25 Rx omeprazole 40 mg capsule,delayed 40 mg PO QAM #90 caps 06/26/24 03/16/25 Rx release insulin lispro 100 unit/mL See Rx Instructions .Route .COMPLEX 12/05/24 03/16/25 History subcutaneous pen rifaximin 550 mg tablet (Xifaxan) 550 mg PO BID 12/05/24 03/16/25 History denosumab 60 mg/mL subcutaneous 60 mg subcut DIRECTED 02/08/25 03/16/25 History syringe (Prolia) insulin glargine 100 unit/mL (3 8 unit (0.08 mL) subcut QAM #0 mL 02/14/25 03/16/25 Rx mL) subcutaneous pen (Lantus Solostar U-100 Insulin) carvedilol 6.25 mg tablet 6.25 mg PO BID 02/19/25 03/16/25 History zinc gluconate 30 mg tablet 30 mg PO .3 times weekly 02/19/25 03/16/25 History amoxicillin 500 mg capsule See Rx Instructions .Route .COMPLEX 03/13/25 03/13/25 History atorvastatin 40 mg tablet 40 mg PO HS 03/13/25 03/16/25 History furosemide 20 mg tablet 40 mg PO QAM 03/13/25 03/16/25 History glucagon 3 mg/actuation nasal spray 3 mg intranasal .qd PRN low BGL 03/16/25 03/16/25 History valsartan 40 mg tablet 40 mg 03/16/25 History Past Med/Surg History Problem List (Updated 03/17/25 @ 00:08 by Background Daemon) Weakness (Acute) Acute kidney injury (Acute) Acute alteration in mental status (Acute) Elevated serum creatinine Mitral stenosis Nonrheumatic mitral annular calcification Diastolic CHF due to valvular disease Elevated troponin (Acute) Chronic kidney disease (CKD) (Acute) Elevated brain natriuretic peptide (BNP) level (Acute) Bilateral edema of lower extremity (Acute) Dyspnea (Acute) COVID Lumbar back pain Shoulder injury Trigger finger Mitral regurgitation Anemia Hypothyroidism Hypertension Cirrhosis of liver Thrombocytopenia Iron deficiency anemia Mixed hyperlipidemia Celiac disease Type 2 diabetes mellitus with diabetic chronic kidney disease Osteoporosis Hypothyroidism Aortic stenosis, mild echocardiogram performed 09/04/2021 demonstrated severe aortic stenosis and moderate mitral stenosis and mitral regurgitation patient underwent tab for on 10/16/2021 with a 23 millimeter Sultana Kevan ultra valve Vitamin D deficiency VARGAS (nonalcoholic steatohepatitis) (Acute) Internal hemorrhoids (Acute) Stage 3b chronic 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 Celiac disease GERD (gastroesophageal reflux disease) Nonalcoholic fatty liver disease Basal cell carcinoma of left side of nose Malignant melanoma of skin of right ear Anemia Hypothyroidism Hypertension Hyperlipidemia Aortic stenosis moderate 2020 SVT (supraventricular tachycardia) Radial head fracture Surgical History S/P TAVR (transcatheter aortic valve replacement) 10/16/21 S/P TIPS (transjugular intrahepatic portosystemic shunt) Hx of abdominal surgery stomach nodules 1992 History of colonoscopy with polypectomy History of bilateral salpingo-oophorectomy (BSO) [place] [facility] [place] History of section x2 ; History of hysterectomy 1991 History of dilatation and curettage S/P foot surgery, left x3--neuroma removal , , History of esophagogastroduodenoscopy (EGD) 01/02/19 and 01/13/20 History of facial surgery melanoma removal of right side of face by ear Status post Mohs surgery for basal cell carcinoma remove off nose History of wisdom tooth extraction 1974 History of adenoidectomy Family History Grandmother (Maternal) Family history of diabetes mellitus Mother Hypertension Diabetes Dyslipidemia Father Hypertension Myocardial infarction, Onset Age: 58 Brother Diabetes Other No family history of adverse response to anesthesia Social History Smoking Status: Former smoker Tobacco Type: Cigarettes Age Started Using Tobacco: 20; Age Quit Using Tobacco: 49; packs per day: 0.75; Second Hand Exposure: No; Do You Dip or Chew Tobacco: No; Tobacco Cessation Education Requested by Patient: No Hx Alcohol Use: No Hx Substance Use: No Preferred Language: Cape Verdean Communication Ability: Effective Visual Impairment: No Limitations Hearing Ability: Normal Machine Tool Designer Required: No Beliefs That Will Affect Care: None marital status: Current Living Situation: Spouse Current Living Situation Comment: With and two grown children current occupational status: retired Other Information That Helps Us Care for You: No Feels Safe at Home: Yes Safety Concerns: Feels Safe At This Time Diet: gluten free caffeine: No Physical Activity Frequency: Does not Exercise Seatbelt Use: always Do you think of yourself as: straight/heterosexual Gender Identity: Female Assistive Devices: Glasses and Walker Review of Systems Constitutional: + fatigue, + weakness and + weight loss (possibly a lot of fluid loss); no fever and no chills Respiratory: + cough, + dyspnea and + wheezing; no he moptysis and no pain with cough Cardiovascular: + problem reported (patient feels breath ing better when lying down); no chest pain Gastrointestinal: + nausea, + vomiting (1 episode since d/ ch) and + cramping; no abdominal pain, no constipation and no diarrhea/loose stools Genitourinary: no dysuria, no urinary frequency and no urinary urgency Neurologic: no tingling and no numbness Endocrine: + fatigue Physical Exam Constitutional: + ill appearing, cooperative and comfort able Respiratory: normal respiratory effort, lungs clear to auscultation Cardiovascular: Rate/Rhythm: regular rate and regular rhythm Heart Sounds: + murmur (heard at URS/ULS borders and at apex) Extremities: normal capillary refill (slightly delayed, 3s); no calf tenderness and no pedal edema Gastrointestinal (Abdomen): normal bowel sounds, soft, nontender, no hepatosplenomegaly Neurologic: moves all extremities and + confused (mildly confused, slow to respond to questions or commands); no focal motor deficits Motor/Sensory: + asterixis (of l. hand noted) Psychiatric: Orientation: alert, oriented to person, oriented to place and cooperative; + not oriented to time (oriented to month, not year) Results & Data Results & Data Vital Signs (Past 12 Hours) Vital Signs Temp Pulse Resp BP Pulse Ox O2 Del Method 03/16/25 19:15 37.7 C H 60 16 157/61 H 100 Room Air Supervising Physician Co-Signing Physician Notes Attending addendum: I have physically seen this patient, have supervised the medical residents activities, and agree with the H&P unless as otherwise noted. Assessment and Plan: The patient is a 69-year-old female with past medical history including acute kidney injury, hepatic encephalopathy, mitral stenosis, nonrheumatic mitral annular calcification, diastolic CHF, CKD, mitral regurgitation, hypothyroidism, hypertension, liver cirrhosis, thrombocytopenia, celiac disease, diabetes mellitus type 2, VARGAS and neoplasm of appendix. She is referred to the emergency department from the outpatient office due to altered mentation progressively worsening over the past several days. She was most recently admitted to [facility] from 03/13-03/14/2025. Hepatic encephalopathy- Ammonia level 137.0, with most recent 51.0 Give lactulose 30 g p.o. now, then 3 times daily Follow serial ammonia levels every morning Follow serial CBC with differential, chemistry profile and magnesium levels every morning Look for signs of infection: Urinalysis, urine culture and sensitivity, blood culture sensitivity Order CT scan abdomen pelvis to assess for possible peritonitis or other cause of infection Continue rifaximin Acute kidney injury superimposed on CKD/hypertension- Creatinine 2.16 with base 1.57 Receiving adequate IV fluid hydration Recheck laboratories in a.m. Hold valsartan, spironolactone, furosemide for now Continue carvedilol Thrombocytopenia- Platelets 43-53 Continue aspirin Hold anticoagulation start heparin subcu Febrile illness- Temperature on admission 37.7 has increased to 38.0 Workup as above May need to have empiric antibiotics started such as daptomycin IV and cefepime IV Diabetes mellitus- Insulin glargine 8 units subcu every morning Placed on Accu-Cheks with NovoLog SSI
[2025-03-16] MEDS ORDERED: MELATONIN 3 MG TAB PO PRN (20:41)
[2025-03-16] MEDS ORDERED: POLYETHYLENE (MIRALAX) 17 GM PACK PO PRN (20:41)
[2025-03-16] MEDS ORDERED: ONDANSETRON INJ 2 MG/ML 2 ML VIAL IV PRN (20:41)
[2025-03-16] MEDS ORDERED: ACETAMINOPHEN 325 MG TAB PO PRN (20:41)
[2025-03-16] MEDS ORDERED: GLUCOSE 10 TAB/TUBE PO PRN (20:46)
[2025-03-16] MEDS ORDERED: GLUCAGON FOR INJ 1 MG VIAL SQ PRN (20:46)
[2025-03-16] MEDS ORDERED: CARBOHYDRATES FOR HYPOGLYCEMIA PO PRN (20:46)
[2025-03-16] MEDS ORDERED: GLUCOSE 40% GEL 15 GM TUBE PO PRN (20:46)
[2025-03-16] MEDS ORDERED: DEXTROSE 50% 50 ML SYRINGE IV PRN (20:46)
[2025-03-16] MEDS: LACTATED RINGER'S 1,000 ML IV ONE (22:24)
[2025-03-16] MEDS: INSULIN ASPART PER UNIT CHARGE SC SCH (22:32)
[2025-03-16] MEDS: HEPARIN SOD 5,000 UNIT/0.5 ML VIAL SQ SCH (22:38)
[2025-03-16] MEDS: Patient's HEIGHT &/or WEIGHT Needed STA (22:46)
[2025-03-17] MEDS: LACTATED RINGER'S 1,000 ML IV SCH (00:13)
[2025-03-17] MEDS: LACTULOSE SYRUP 20 GM/30 ML UDC PO STA (00:17)
[2025-03-17 01:08] LABS: Appearance Urine Clear (Clear); Bacteria Urine Automated None Seen (None Seen); Cast Urine Automated 0-2 /lpf (0-2); Epithelial Cell Urine Auto 0-2 /hpf (0-2); Glucose Urine UA Negative (Negative); RBC Urine Automated 0-2 /hpf (0-2); WBC Urine Automated 0-5 /hpf (0-5)
--- NOTE | 2025-03-17 01:36 | CT Scan Report ---
EXAM: CT abd pelvis wo con CLINICAL HISTORY: hepatic encephalopathy TECHNIQUE: Contiguous axial images were obtained from the level of the diaphragm to the pubic symphysis without intravenous or oral contrast. Coronal and sagittal reconstructions were likewise performed and indicated to increase the sensitivity for detecting clinically relevant pathology. CT scan was performed according to ALARA (as low as reasonable achievable). COMPARISON: 10:31:36 [place] FINDINGS: Mild right pleural effusion with basal subsegmental collapse of right lower lobes are seen. Mild congestive changes involving bilateral lung bases. Evaluation of the abdominal and pelvic visceral organs is limited without intravenous contrast. The liver appears relatively smaller in size and shows mild heterogeneous parenchyma with irregular surface. Portal vein appears dilated with multiple collaterals are noted adjacent to the perigastric/peripancreatic space and its splenic hilum - suggestive of portal hypertension. The unenhanced,pancreas, and adrenal glands are grossly unremarkable. Possible portacaval stent is seen in situ. The gallbladder is distended and shows a calculus of size 9 mm without cholecystitis.. Enlarged spleen measuring about 17 cm. The kidneys are normal in size and attenuation without obvious calcification. There is no hydronephrosis or perinephric stranding. The ureters are normal in caliber. The urinary bladder is normal in contour. Pelvic viscera are grossly unremarkable. No adenopathy or fluid collections are seen. Colonic fecal and gaseous distension Multiple small uncomplicated sigmoid colonic diverticulosis. No evidence of focal or diffuse bowel wall thickening or evidence of bowel obstruction is seen. The aorta is normal in caliber. Diffuse atherosclerotic calcification is noted involving aorta iliac arteries. No aggressive appearing osseous lesions are identified. IMPRESSION: 1. Mild right pleural effusion with basal subsegmental collapse of right lower lobes are seen.-new finding. 2. Mild congestive changes involving bilateral lung bases.-new finding. 3. Changes of cirrhosis of liver with portal hypertension.-stable. 4. Uncomplicated cholelithiasis.-new finding. 5. Multiple small uncomplicated sigmoid colonic diverticulosis-stable. 6. Splenomegaly-stable. 7. Colonic fecal and gaseous distension 8. Prior ascites is completely resolved. Electronically signed by Twan Vyas 03-17-2025 01:36 AM
[2025-03-17 05:51] LABS: Hematocrit (blood only) 31.9 % (37.0-47.0); Hemoglobin 10.6 g/dl (12.0-16.0); Mean Corpuscular Hemoglobin 30.6 pg (25.0-34.0); Mean Corpuscular Volume 92.2 fL (80.0-100.0); Platelet Count 41 K/uL (130-400); RDW Standard Deviation 48.7 fL (36.4-46.3); Red Blood Count 3.46 M/uL (4.20-5.40); White Blood Count 3.00 K/ul (4.8-10.8)
[2025-03-17 06:03] LABS: Alanine Aminotransferase 16.0 U/L (7-52); Albumin Globulin Ratio 1.1 (0.9-2); Alkaline Phosphatase 49.0 U/L (34-104); Anion Gap 8.0 (3-11); Bilirubin,Total 1.3 mg/dl (0.2-1.0); Blood Urea Nitrogen 37.0 mg/dl (6-23); Calcium 9.4 mg/dl (8.6-10.3); Carbon Dioxide 23.0 mmol/L (21-32); Chloride 107.0 mmol/L (98-107); Creatinine Clr Calc Pharmacy 22.5 ml/min; Globulin 2.8 gm/dl (2.5-4.0); Glucose 170.0 mg/dl (70-99(Fasting)); Potassium 4.1 mmol/L (3.5-5.1); Sodium 138.0 mmol/L (136-145); Total Protein 5.9 gm/dl (6.0-8.3)
[2025-03-17] MEDS: LEVOTHYROXINE SODIUM 50 MCG TABLET PO SCH (06:39)
--- NOTE | 2025-03-17 07:53 | Hospitalist Progress Note ---
Date of Service March 17, 2025 Assessment & Plan (1) Weakness: (2) Acute kidney injury: (3) Diastolic CHF due to valvular disease: (4) Acute alteration in mental status: (5) Cirrhosis of liver: (6) Thrombocytopenia: (7) Type 2 diabetes mellitus with diabetic chronic kidney disease: (8) Hypothyroidism: Plan 69-year-old female with past medical history of VARGAS cirrhosis s/p TIPS (January 2021), c/b hepatic encephalopathy / thrombocytopenia / Esophageal varices, chronic diastolic heart failure with severe mitral stenosis, DM II, neoplasm of appendix, CKD IIIb, HTN, HLD, hypothyroidism, celiac disease, mitral regurgitation, Vit. D deficiency, GERD. Pt's recent medical history is complicated by multiple hospital admissions for acute heart failure exacerbation and more recently for hepatic encephalopathy. Over the past month (since February 08), she has been having severly decreased energy, increased fatigue, and decreased oral intake of food and fluids. Her most recent admission was from 03/13 - 03/14/25. Pt is now being sent to ED from outpatient office due to altered mentation progressivley worsening over the past several days. #VARGAS cirrhosis #Hepatic encephalopathy - 10/14/20 labs showed neg Hep B, neg Hep C, reactive Hep A (IgG/IgM combined) - ammonia level on admission 137, which was 51 (03/13/25) - ammonia is trending down - cont lactulose 30g po TID and rifaximin (pt states she uses miralax daily at home) - no signs of infection - CT abd / pelvis without acute / new pathology (stable mild right pleural effusion, portal hypertension, cirrhosis, diverticulosis, splenomegaly, resolved prior ascites, new uncomplicated cholelithiasis) #ZAY on CKD IIIb - prior baseline Cr: 1.57, more recently Cr stabilizing around 1.9-2 - on admission Cr: 2.16 --> 2.21 - s/p LR 1L bolus f/b LR 80 ml/hr, cont for another 24 hrs, monitor for volume overload - if renal function not improving, will consult nephrology - valsartan, spironolactone, furosemide on hold #HTN - cont carvedilol, hold valsartan, spironolactone, furosemide #Thrombocytopenia - Platelets 43-53 - Continue aspirin #Febrile illness - T: 37.7C up to 38, but now wnl - UA unremarkable - BCx pending - no infection noted on CT A/P #DM II - cont glargine 8 units subq qAM - cont accuchecks and novolog SSI #Aspiration risk - cont modified diet #Diastolic heart failure - BNP: 1095 (02/08) --> 1068 (03/16) #Code status: Full code #DVT ppx: SCDs, in the setting of thrombocytopenia hep subq held 03/17: pt's sister at bedside Admission and Anticipated Discharge Date Admission Date: March 16, 2025 Subjective No acute events overnight Currently, mentation significantly improved though there is some delay in response. Review of Systems Review of Systems: Comprehensive ROS neg Physical Exam Physical Exam: Gen: no acute distress, lying in bed comfortable HEENT: NC/AT, MMM Lungs: nonlabored breathing, CTAB CVS: s1s2nl, II/ EAN, RRR Abd: nl bowel sounds, soft, NT / ND : no salcido Ext: no edema, no asterixis Neuro: AAOx3 Psych: calm cooperative Results & Data Results & Data Vital Signs (Past 12 Hours) Vital Signs Temp Pulse Pulse Resp BP Pulse Ox O2 Del Method 03/17/25 03:51 36.6 C 66 18 169/82 H 96 Room Air 03/17/25 01:51 37.3 C 03/16/25 23:51 38.0 C H 63 18 166/80 H 98 Room Air 03/16/25 21:56 64 PG Care Time/CCT Total # of Minutes Spent Total Time Spent with Patient: Total time spent is greater than 50% in coordination of care (as documented) at patient's floor/unit and/or counseling patient: Coding Level of Care Code 81667 SUB INP/OBS CARE 2/35MIN Diagnoses Weakness R53.1 Acute kidney injury N17.9 Diastolic CHF due to valvular disease I50.30; I38 Acute alteration in mental status R41.82 Cirrhosis of liver K74.60 Thrombocytopenia D69.6 Type 2 diabetes mellitus with diabetic chronic kidney disease E11.22 Hypothyroidism E03.9
[2025-03-17] MEDS: FERROUS SULFATE 325 MG TAB PO SCH (08:02)
[2025-03-17] MEDS: ASPIRIN 81 MG ECTAB PO SCH (08:03)
[2025-03-17] MEDS: LACTULOSE SYRUP 20 GM/30 ML UDC PO SCH (08:04)
[2025-03-17] MEDS: LANTUS PER UNIT CHARGE SQ SCH (09:15)
[2025-03-17] MEDS: ATORVASTATIN 40 MG TAB PO SCH (21:02)
[2025-03-18 06:37] LABS: Hematocrit (blood only) 29.8 % (37.0-47.0); Hemoglobin 9.8 g/dl (12.0-16.0); Mean Corpuscular Hemoglobin 30.8 pg (25.0-34.0); Mean Corpuscular Volume 93.7 fL (80.0-100.0); Platelet Count 42 K/uL (130-400); RDW Standard Deviation 49.8 fL (36.4-46.3); Red Blood Count 3.18 M/uL (4.20-5.40); White Blood Count 2.96 K/ul (4.8-10.8)
[2025-03-18 07:06] LABS: Alanine Aminotransferase 16.0 U/L (7-52); Albumin Globulin Ratio 1.3 (0.9-2); Alkaline Phosphatase 46.0 U/L (34-104); Anion Gap 7.0 (3-11); Bilirubin,Total 1.2 mg/dl (0.2-1.0); Blood Urea Nitrogen 32.0 mg/dl (6-23); Calcium 8.9 mg/dl (8.6-10.3); Carbon Dioxide 23.0 mmol/L (21-32); Chloride 108.0 mmol/L (98-107); Creatinine Clr Calc Pharmacy 28.9 ml/min; Globulin 2.4 gm/dl (2.5-4.0); Glucose 88.0 mg/dl (70-99(Fasting)); Potassium 4.1 mmol/L (3.5-5.1); Sodium 138.0 mmol/L (136-145); Total Protein 5.4 gm/dl (6.0-8.3)
--- NOTE | 2025-03-18 07:44 | Hospitalist Progress Note ---
Date of Service March 18, 2025 Assessment & Plan (1) Weakness: (2) Acute kidney injury: (3) Diastolic CHF due to valvular disease: (4) Acute alteration in mental status: (5) Cirrhosis of liver: (6) Thrombocytopenia: (7) Type 2 diabetes mellitus with diabetic chronic kidney disease: (8) Hypothyroidism: Plan 69-year-old female with past medical history of VARGAS cirrhosis s/p TIPS (January 2021), c/b hepatic encephalopathy / thrombocytopenia / Esophageal varices, chronic diastolic heart failure with severe mitral stenosis, DM II, neoplasm of appendix, CKD IIIb, HTN, HLD, hypothyroidism, celiac disease, mitral regurgitation, Vit. D deficiency, GERD. Pt's recent medical history is complicated by multiple hospital admissions for acute heart failure exacerbation and more recently for hepatic encephalopathy. Over the past month (since February 08), she has been having severly decreased energy, increased fatigue, and decreased oral intake of food and fluids. Her most recent admission was from 03/13 - 03/14/25. Pt is now being sent to ED from outpatient office due to altered mentation progressivley worsening over the past several days. #VARGAS cirrhosis #Hepatic encephalopathy - 10/14/20 labs showed neg Hep B, neg Hep C, reactive Hep A (IgG/IgM combined) - ammonia level on admission 137, which was 51 (03/13/25) - ammonia is trending down, 74 on 03/18/25 - cont lactulose 30g po TID and rifaximin (pt states that she was previously told by GI that she can use miralax daily at home for hepatic encephalopathy) - no signs of infection - CT abd / pelvis without acute / new pathology (stable mild right pleural effusion, portal hypertension, cirrhosis, diverticulosis, splenomegaly, resolved prior ascites, new uncomplicated cholelithiasis) #ZAY on CKD IIIb - prior baseline Cr: 1.57, more recently Cr stabilizing around 1.9-2 - on admission Cr: 2.16 --> 2.21 --> 1.72 - s/p LR 1L bolus f/b LR 80 ml/hr, cont for another 24 hrs, monitor for volume overload - if renal function not improving, will consult nephrology - valsartan, spironolactone, furosemide on hold #HTN - cont carvedilol, hold valsartan, spironolactone, furosemide #Thrombocytopenia - Platelets 40-53 - Continue aspirin #Anemia - chronic disease - hgb stable around 9-10 #Febrile illness - T: 37.7C up to 38, but now wnl - UA unremarkable - BCx pending - no infection noted on CT A/P #DM II - cont glargine 8 units subq qAM - cont accuchecks and novolog SSI #Aspiration risk - cont modified diet #Diastolic heart failure - BNP: 1095 (02/08) --> 1068 (03/16) #Code status: Full code #DVT ppx: SCDs, in the setting of thrombocytopenia hep subq held 03/17: pt's sister at bedside Admission and Anticipated Discharge Date Admission Date: March 16, 2025 Subjective No acute events overnight Currently, mentation significantly improved though there is some delay in response. Review of Systems Review of Systems: Comprehensive ROS neg Physical Exam Physical Exam: Gen: no acute distress, lying in bed comfortable HEENT: NC/AT, MMM Lungs: nonlabored breathing, CTAB CVS: s1s2nl, II/ EAN, RRR Abd: nl bowel sounds, soft, NT / ND : no salcido Ext: no edema, no asterixis Neuro: AAOx3 Psych: calm cooperative Results & Data Results & Data Vital Signs (Past 12 Hours) Vital Signs Temp Pulse Pulse Resp BP Pulse Ox O2 Del Method 03/18/25 03:42 36.4 C L 58 L 18 112/62 98 Room Air 03/17/25 23:21 36.5 C 61 18 134/64 98 Room Air 03/17/25 21:51 57 L 03/17/25 19:57 36.6 C 60 18 130/67 99 Room Air PG Care Time/CCT Total # of Minutes Spent Total Time Spent with Patient: Total time spent is greater than 50% in coordination of care (as documented) at patient's floor/unit and/or counseling patient: Coding Diagnoses Weakness R53.1 Acute kidney injury N17.9 Diastolic CHF due to valvular disease I50.30; I38 Acute alteration in mental status R41.82 Cirrhosis of liver K74.60 Thrombocytopenia D69.6 Type 2 diabetes mellitus with diabetic chronic kidney disease E11.22 Hypothyroidism E03.9
[2025-03-18 11:36] VITALS: BP 108/63; PULSE 55; RESP 18; TEMP 97.9; O2SAT 97
--- NOTE | 2025-03-18 12:36 | Discharge Summary ---
Discharge Summary Date of Service March 18, 2025 Principal Dx & Hospital Course #1 = Principal Diagnosis (1) Weakness: (2) Acute kidney injury: (3) Diastolic CHF due to valvular disease: (4) Acute alteration in mental status: (5) Cirrhosis of liver: (6) Thrombocytopenia: (7) Type 2 diabetes mellitus with diabetic chronic kidney disease: (8) Hypothyroidism: Plan 69-year-old female with past medical history of VARGAS cirrhosis s/p TIPS (January 2021), c/b hepatic encephalopathy / thrombocytopenia / Esophageal varices, chronic diastolic heart failure with severe mitral stenosis, DM II, neoplasm of appendix, CKD IIIb, HTN, HLD, hypothyroidism, celiac disease, mitral regurgitation, Vit. D deficiency, GERD. Pt's recent medical history is complicated by multiple hospital admissions for acute heart failure exacerbation and more recently for hepatic encephalopathy. Over the past month (since February 08), she has been having severely decreased energy, increased fatigue, and decreased oral intake of food and fluids. Her most recent admission was from 03/13 - 03/14/25. Pt is now being sent to ED from outpatient office due to altered mentation progressively worsening over the past several days. While in the hospital, she received IVF and was placed on lactulose. Her mentation significantly improved. Her renal function also improved with IVF. Her ammonia level is still slightly elevated, but since it has been trending now and pt is back to baseline, no further indication for her to stay in the hospital. Pt's family was concerned about her ability to ambulate, which has also improved with improvement in her mentation. Pt's at bedside and is satisfied in her current status. He is open to home services which CM is working on setting up. She has a walker at home. Of note, pt was instructed by Dr. Vu, cardi ologist at [facility] to discontinue Valsartan, Spironolactone, and Furosemide. So these medications will be discontinued on discharge. Pt is to follow with cardiology team for further recommendation. #VARGAS cirrhosis #Hepatic encephalopathy - 10/14/20 labs showed neg Hep B, neg Hep C, reactive Hep A (IgG/IgM combined) - ammonia level on admission 137, which was 51 (03/13/25) - ammonia is trending down, 74 on 03/18/25 - cont lactulose 30g po TID and rifaximin (pt states that she was previously told by GI that she can use miralax daily at home for hepatic encephalopathy) - no signs of infection - CT abd / pelvis without acute / new pathology (stable mild right pleural effusion, portal hypertension, cirrhosis, diverticulosis, splenomegaly, resolved prior ascites, new uncomplicated cholelithiasis) #ZAY on CKD IIIb - prior baseline Cr: 1.57, more recently Cr stabilizing around 1.9-2 - on admission Cr: 2.16 --> 2.21 --> 1.72 - s/p LR 1L bolus f/b LR 80 ml/hr, cont for another 24 hrs, monitor for volume overload - valsartan, spironolactone, furosemide on hold #HTN - cont carvedilol, - d/c valsartan, spironolactone, furosemide per her outpatient [place]. #Thrombocytopenia - Platelets 40-53 - Continue aspirin #Anemia - chronic disease - hgb stable around 9-10 #Febrile illness - T: 37.7C up to 38, but now wnl - UA unremarkable - BCx prelim neg - no infection noted on CT A/P #DM II - cont glargine 8 units subq qAM - cont accuchecks and novolog SSI #Aspiration risk - cont modified diet #Diastolic heart failure - BNP: 1095 (02/08) --> 1068 (03/16) #Code status: Full code #DVT ppx: SCDs, in the setting of thrombocytopenia hep subq held 03/17: pt's sister at bedside 03/18: spoke with pt's Admission HPI Per Admitting Provider Patient is a 69 yo F w/ a PMHx of cirrhosis, CKD-stage IV, diastolic CHF (d/t valvular dz), mitral regurgitation, hypothyroidism, HTN, T2DM, celiac disease, osteoporosis, VARGAS, presenting today as a direct admit after being discharged 2 days ago. Patient up to a month ago was able to do her ADL's normally but within the last month (since February 08) has had severe decrease of energy, increased fatigue, decreased oral intake of food and fluids. Discharge Exam Gen: no acute distress, lying in bed comfortable HEENT: NC/AT, MMM Lungs: nonlabored breathing, CTAB CVS: s1s2nl, II/ EAN, RRR Abd: nl bowel sounds, soft, NT / ND : no salcido Ext: no edema, no asterixis Neuro: AAOx3 Psych: calm cooperative Discharge Plan Discharge Items Patient Disposition: Home - Home Health Services Reason For Visit: HEPATIC ENCEPHALOPATHY Discharge Diagnosis: Hepatic encephalopathy Activity: Resume your previous activity Non-emergency contact: Primary Care Provider and Office Administrator Call non-emergency contact if: you have any medication questions and your symptoms worsen Follow-up/Referrals: Jarrod Borges MD [Primary Care Provider] - Diet: Carb Consistent or DM2 and Gluten Free Addtl Attending Provider Instructions: 1. continue taking lactulose as prescribed 2. if confusion, call your primary doctor right away Pending Studies at Discharge: Yes Studies:: Final Blood culture results Stand-Alone Forms: My App[employer]app, Smoking Cessation Medications and DC Order Prescriptions: New lactulose 10 gram/15 mL Solution 30 g PO TID 10 Days Qty: 1350 0RF Continued levothyroxine 50 mcg tablet 50 mcg PO QAM Qty: 90 3RF omeprazole 40 mg capsule,delayed release(DR/EC) 40 mg PO QAM Qty: 90 3RF ferrous sulfate 325 mg (65 mg iron) tablet 325 mg PO QAM calcium carbonate-vitamin D3 600 mg(1,500mg) -400 unit capsule 1 cap PO PM multivitamin [Multiple Vitamins] tablet 1 tab PO QAM vitamin B complex capsule 1 cap PO QAM (DME) Accu-Chek SmartView Test Strip Strip See Rx Instructions .ROUTE .MEDSUPPLY Qty: 10 Rx Instructions: As directed biotin 5,000 mcg tablet,disintegrating 10,000 mcg PO DAILY aspirin [Adult Low Dose Aspirin] 81 mg tablet,delayed release (DR/EC) 81 mg PO DAILY insulin lispro 100 unit/mL insulin pen See Rx Instructions .ROUTE .COMPLEX Hold Instructions: Provider's Order Rx Instructions: take 18 units with breakfast, 12 units with lunch, and 14 units with dinner. Xifaxan 550 mg tablet 550 mg PO BID carvedilol 6.25 mg tablet 6.25 mg PO BID amoxicillin 500 mg capsule See Rx Instructions .ROUTE .COMPLEX Rx Instructions: TAKE 4 CAPSULES BY MOUTH INDICATED ONE HOUR BEFORE DENTAL AND OTHER PROCEDURES DIRECTED atorvastatin 40 mg tablet 40 mg PO HS Rx Instructions: Spouse verified by bottle label glucagon 3 mg/actuation spray,non-aerosol 3 mg intranasal .qd PRN (Reason: low BGL) Prolia 60 mg/mL Syringe 60 mg SUBCUT DIRECTED Rx Instructions: Every 6 months insulin glargine [Lantus Solostar U-100 Insulin] 100 unit/mL (3 mL) insulin pen 8 unit SUBCUT QAM Qty: 0 0RF zinc gluconate 30 mg tablet 30 mg PO .3 times weekly Discontinued spironolactone 25 mg tablet 25 mg PO QAM Qty: 90 3RF furosemide 20 mg tablet 40 mg PO QAM valsartan 40 mg tablet 40 mg Discharge Orders: Discharge Order (Routine); Ordered 03/18/25 Ordered By: Maria E Hatch Admission Data Admit Date/Time: 03/16/25 19:19 Attending Provider: Maria E Hatch Admit Provider: Sajan Mcgraw Primary Care Provider: Jarrod Borges Other Interventions: Discharge Summary Assessment (RN) Last Done: 03/18/25 11:47 Hospital Stay Data Diagnostic Imagining Performed 03/16/25 23:36 CT Abd and Pelvis [CT abd pelvis wo con] Stat Discharge Instructions Given to Patient (Per Discharging Provider) 1. continue taking lactulose as prescribed 2. if confusion, call your primary doctor right away Total Time Total Time Spent Total Time Spent (In Minutes): 90 Coding Level of Care Code 80572 INP/OBS DISCH >30 MIN Diagnoses Weakness R53.1 Acute kidney injury N17.9 Diastolic CHF due to valvular disease I50.30; I38 Acute alteration in mental status R41.82 Cirrhosis of liver K74.60 Thrombocytopenia D69.6 Type 2 diabetes mellitus with diabetic chronic kidney disease E11.22 Hypothyroidism E03.9
== END 2025-03-18 13:41 | disposition home health service (06) | DRG 442 ==
LOC: SUATTDRO 19:19 → 2N 19:19